=== PATIENT | male | born 1935 | race Caucasian/White ===

== ENCOUNTER 2016-09-27 14:50 | Inpatient (IN) ==
--- NOTE | 2016-09-27 15:11 | Emergency Department Note ---
Disposition Clinical Impression: Abdominal pain, KALIE (acute kidney injury), Pancreatitis, Duodenitis, Supratherapeutic INR Disposition: Admitted As Inpatient Condition: Fair Referrals: NO,PCP [Non-Partnered Physician] - Forms: Work/School Release, ED Satisfaction Letter Time of Disposition: 17:35 Abdominal Pain HPI - General Chief Complaint: ED Abdominal Pain Stated Complaint: abdominal pain Time Seen by Provider: 09/27/16 15:09 Source: patient Limitations: physical limitation Nursing Notes Reviewed: Yes Vital Signs Reviewed: Yes - History of Present Illness HPI Narrative: This is an 81-year-old male who presents with abdominal pain and distention for the last 4 days. Patient states nausea but no vomiting. Patient states he always has blood in his stools. Patient is on Coumadin for a hx of DVT. Patient states he always has some blood in his stools because he is constipated and has to strain. Patient states he cannot lay down flat because his airway will cut off. Patient denies any chest pain or increased shortness of breath. Patient's not running any fevers. Patient denies any abdominal surgeries. Patient does take insulin shots to his abdomen. Pt Subjective Complaint: abdominal pain Onset (ago): day(s) (4) - Related Data Home Medications Medication Instructions Recorded Confirmed Amlodipine Besylate 10 mg PO DAILY 09/27/16 09/27/16 Aspirin 81 mg PO DAILY 09/27/16 09/27/16 Atorvastatin Calcium 80 mg PO DAILY 09/27/16 09/27/16 Calcium Carbonate 650 mg PO BID 09/27/16 09/27/16 Cholecalciferol (D-3) [Vitamin D] 2,000 unit PO DAILY 09/27/16 09/27/16 Cyclobenzaprine HCl 10 mg PO TID PRN 09/27/16 09/27/16 Ferrous Sulfate [Iron] 325 mg PO BID 09/27/16 09/27/16 Furosemide [Lasix] 60 mg PO BID 09/27/16 09/27/16 Hyaluronate Sodium/He-Cell/Peg 1 appl NS DAILY 09/27/16 09/27/16 [Hygel 2.5% Gel] Insulin Glargine,Hum.rec.anlog 80 unit SQ HS 09/27/16 09/27/16 [Lantus Solostar] Isosorbide MONOnitrate (24 HR) 60 mg PO DAILY 09/27/16 09/27/16 [Imdur] Lisinopril [Zestril] 10 mg PO DAILY 09/27/16 09/27/16 Magnesium Citrate 296 ml PO PRN 09/27/16 09/27/16 Memantine [Namenda] 5 mg PO HS 09/27/16 09/27/16 Methadone 60 mg PO Q8HR 09/27/16 09/27/16 Metoprolol Succinate 100 mg PO DAILY 09/27/16 09/27/16 Mupirocin [Bactroban Oint] 1 appl TP Q8H 09/27/16 09/27/16 Nitroglycerin [Nitrostat] 0.4 mg SL AD PRN 09/27/16 09/27/16 Nystatin POWDER [Nystop] 1 appl TP BID 09/27/16 09/27/16 PredniSONE 3 mg PO DAILY 09/27/16 09/27/16 Sennosides/Docusate Sodium 17.2 mg PO HS 09/27/16 09/27/16 [Senna-Docusate Sodium Tablet] Sertraline [Zoloft] 100 mg PO DAILY 09/27/16 09/27/16 Sod Chloride/B-6/Zinc Acet/Ca 1 spray IR DAILY 09/27/16 09/27/16 [Wound Cleanser] Trimethoprim 100 mg PO BID 09/27/16 09/27/16 Warfarin [Coumadin] 2.5 mg PO 3XW 09/27/16 09/27/16 Warfarin [Coumadin] 5 mg PO 4XW MDD ramone,pushpa,sade,sat 09/27/16 09/27/16 Allergies Allergy/AdvReac Type Severity Reaction Status Date / Time colchicine Allergy Difficulty Verified 09/27/16 16:48 Breathing gabapentin Allergy Difficulty Verified 09/27/16 16:48 Breathing griseofulvin Allergy Difficulty Verified 09/27/16 16:48 Breathing methocarbamol Allergy Difficulty Verified 09/27/16 16:48 Breathing pregabalin [From Lyrica] Allergy Difficulty Verified 09/27/16 16:48 Breathing sulfamethoxazole Allergy Difficulty Verified 09/27/16 16:48 [From Bactrim] Breathing trimethoprim [From Bactrim] Allergy Difficulty Verified 09/27/16 16:48 Breathing acarbose AdvReac Difficulty Verified 09/27/16 16:48 Breathing IV CONTRAST Allergy Difficulty Uncoded 09/27/16 16:48 Breathing All systems ED: reviewed and negative except as stated. Constitutional: Denies: fever, chills, weakness, weight change Eyes: Denies: eye pain, eye discharge, vision change ENT ED: Denies: ear pain, throat pain, dental pain, hearing loss, epistaxis, congestion, dysphagia Cardiovascular: Denies: chest pain, palpitations, dyspnea on exertion, edema, syncope Respiratory: Denies: cough, dyspnea, wheezes, hemoptysis, stridor Gastrointestinal: Reports: abdominal pain, nausea, hematochezia. Denies: vomiting, diarrhea, constipation, hematemesis, melena Genitourinary: Denies: urgency, dysuria, frequency, hematuria Musculoskeletal: Denies: back pain, neck pain, arthralgia, myalgia Integumentary: Denies: rash, abrasion, lesions Neurological: Denies: headache, weakness, numbness, paresthesias, confusion, abnormal gait, vertigo Psychiatric: Denies: anxiety, depression, suicidal thoughts, homicidal thoughts , auditory hallucinations, visual hallucinations Endocrine: Denies: fatigue Hematological/Lymphatic: Denies: easy bleeding, easy bruising Allergic/Immunologic: Denies: facial swelling, urticaria Physical Exam - General Limitations: physical limitation General appearance: alert, in no apparent distress, obese (morbid) - Head Head exam: atraumatic, normocephalic, normal inspection - Eye Eye exam: Present: normal appearance, PERRL, EOMI - ENT ENT exam: normal exam, normal oropharynx, mucous membranes moist - Neck Neck exam: Present: normal inspection, full ROM, trachea midline - Chest Chest inspection: Present: normal inspection, symmetric chest wall rise - Respiratory Respiratory exam: Present: other (diminished ) - Cardiovascular Cardiovascular exam: Present: normal rhythm, tachycardia - Abdominal Exam Abdominal exam: Present: distention, guarding, rebound, other (ecchymosis to anterior abdomen). Absent: rigidity - Extremities Exam Extremities exam: Present: full ROM, pedal edema. Absent: tenderness - Expanded Lower Extremity Exam Lower leg exam: Present: swelling - Back Exam Back exam: Present: normal inspection, full ROM. Absent: tenderness - Neurological Exam Neurological exam: Present: alert, oriented X3 - Psychiatric Psychiatric exam: Present: normal affect, normal mood - Skin Skin exam: Present: warm, dry, intact, other (ecchymosis to anterior abdomen) Course - Consultations Consultation #1: I spoke with Dr. Brian chung to admit. Time: 18:19 Vital Signs Temperature 98.1 F 09/27/16 15:00 Pulse Rate 125 09/27/16 15:00 Respiratory Rate 20 09/27/16 15:00 Blood Pressure 117/76 09/27/16 15:00 O2 Sat by Pulse Oximetry 97 09/27/16 15:00 Temperature 98.1 F 09/27/16 15:00 Pulse Rate 116 09/27/16 16:55 Respiratory Rate 20 09/27/16 16:55 Blood Pressure 138/88 09/27/16 16:55 O2 Sat by Pulse Oximetry 97 09/27/16 16:55 Oxygen Delivery Oxygen Delivery Nasal Cannula Abdominal Pain - Medical Records Medical records reviewed: Yes I reviewed the patient's medical records. - Lab Data Lab results reviewed: Yes I reviewed the patient's lab results. Result diagrams: 09/27/16 15:23 09/27/16 15:23 Lab Results 09/27/16 09/27/16 09/27/16 Range/Units 15:23 15:23 15:23 WBC 21.1 H (4.3-11.1) K/mcL RBC 3.91 L (4.19-5.50) M/mcL Hgb 10.8 L (12.9-16.9) g/dL Hct 33.8 L (37.5-50.1) % MCV 86.4 (83.0-100.0) fL MCH 27.6 L (28.0-33.3) pg MCHC 32.0 (31.6-35.5) g/dL RDW 16.5 H (11.5-14.5) % Plt Count 323 (140-400) K/mcL MPV 8.9 L (9.4-12.4) fL Immature Gran % 1.2 (0-4) % Seg Neutrophils % 84.0 % Lymphocytes % 10.0 % Monocytes % 4.1 % Eosinophils % 0.4 % Basophils % 0.3 % Neutrophils # 17.7 H (1.6-8.9) K/mcL Lymphocytes # 2.1 (0.6-4.6) K/mcL Monocytes # 0.9 (0.0-1.3) K/mcL Eosinophils # 0.1 (0.0-0.6) K/mcL Basophils # 0.1 (0.0-0.2) K/mcL PT 118.2 H* (9.4-12.1) Seconds INR 10.2 H* APTT 69.8 H (26.0-36.0) Seconds Sodium 138 (136-145) mEq/L Potassium 4.5 (3.5-4.5) mEq/L Chloride 101 (98-109) mEq/L Carbon Dioxide 28 (19-29) mEq/L BUN 44 H (8-26) mg/dL Creatinine 1.92 H (0.72-1.25) mg/dL Est GFR ( Amer) 41 L (> 60) Est GFR (Non-Af Amer) 34 L (> 60) BUN/Creatinine Ratio 23 (6-26) Glucose 199 H (70-99) mg/dL Calculated Osmolality 303 H (280-300) Lactic Acid (0.5-2.2) mmol/L Calcium 9.9 (8.6-10.8) mg/dL Total Bilirubin 0.7 (0.2-1.2) mg/dL Direct Bilirubin 0.4 (0.0-0.5) mg/dL Indirect Bilirubin 0.3 (0.0-1.2) mg/dL AST 45 H (5-34) Units/L ALT 29 (0-55) Units/L Alkaline Phosphatase 103 (38-126) Units/L Troponin I (0-0.03) ng/mL B-Natriuretic Peptide (0-100) pg/mL Serum Total Protein 7.4 (6.0-8.3) g/dL Albumin 3.2 L (3.5-5.0) g/dL Globulin 4.2 H (2.4-3.5) g/dL Albumin/Globulin Ratio 0.8 L (1.1-2.2) Lipase 1172 H (8-78) Units/L 09/27/16 09/27/16 09/27/16 Range/Units 15:23 15:23 15:23 WBC (4.3-11.1) K/mcL RBC (4.19-5.50) M/mcL Hgb (12.9-16.9) g/dL Hct (37.5-50.1) % MCV (83.0-100.0) fL MCH (28.0-33.3) pg MCHC (31.6-35.5) g/dL RDW (11.5-14.5) % Plt Count (140-400) K/mcL MPV (9.4-12.4) fL Immature Gran % (0-4) % Seg Neutrophils % % Lymphocytes % % Monocytes % % Eosinophils % % Basophils % % Neutrophils # (1.6-8.9) K/mcL Lymphocytes # (0.6-4.6) K/mcL Monocytes # (0.0-1.3) K/mcL Eosinophils # (0.0-0.6) K/mcL Basophils # (0.0-0.2) K/mcL PT (9.4-12.1) Seconds INR APTT (26.0-36.0) Seconds Sodium (136-145) mEq/L Potassium (3.5-4.5) mEq/L Chloride (98-109) mEq/L Carbon Dioxide (19-29) mEq/L BUN (8-26) mg/dL Creatinine (0.72-1.25) mg/dL Est GFR ( Amer) (> 60) Est GFR (Non-Af Amer) (> 60) BUN/Creatinine Ratio (6-26) Glucose (70-99) mg/dL Calculated Osmolality (280-300) Lactic Acid 1.4 (0.5-2.2) mmol/L Calcium (8.6-10.8) mg/dL Total Bilirubin (0.2-1.2) mg/dL Direct Bilirubin (0.0-0.5) mg/dL Indirect Bilirubin (0.0-1.2) mg/dL AST (5-34) Units/L ALT (0-55) Units/L Alkaline Phosphatase (38-126) Units/L Troponin I 0.01 (0-0.03) ng/mL B-Natriuretic Peptide 42 (0-100) pg/mL Serum Total Protein (6.0-8.3) g/dL Albumin (3.5-5.0) g/dL Globulin (2.4-3.5) g/dL Albumin/Globulin Ratio (1.1-2.2) Lipase (8-78) Units/L - Radiology Data Radiology results reviewed: Yes I reviewed the patient's radiology results. - EKG Data EKG attestation: Yes I reviewed and interpreted this EKG. EKG shows normal: sinus rhythm Rate: tachycardia (121) Rhythm: NSR [place]/QRS: normal, IVCD Interpretation: nonspecific ST-T wave changes
[2016-09-27 15:33] LABS: Basophils # 0.1 K/mcL (0.0-0.2); Basophils % 0.3 %; Eosinophils # 0.1 K/mcL (0.0-0.6); Eosinophils % 0.4 %; Hematocrit 33.8 % (37.5-50.1); Hemoglobin 10.8 g/dL (12.9-16.9); Immature Granulocytes % 1.2 % (0-4); Lymphocytes # 2.1 K/mcL (0.6-4.6); Mean Corpuscular Hemoglobin 27.6 pg (28.0-33.3); Mean Corpuscular Volume 86.4 fL (83.0-100.0); Mean Platelet Volume 8.9 fL (9.4-12.4); Monocytes # 0.9 K/mcL (0.0-1.3); Monocytes % 4.1 %; Neutrophils # 17.7 K/mcL (1.6-8.9); Platelet Count 323 K/mcL (140-400); Red Blood Count 3.91 M/mcL (4.19-5.50); Red Cell Distribution Width 16.5 % (11.5-14.5)
[2016-09-27 15:40] LABS: Activated Partial Thrombo Time 69.8 Seconds (26.0-36.0)
[2016-09-27 15:50] LABS: Albumin 3.2 g/dL (3.5-5.0); Albumin/Globulin Ratio 0.8 (1.1-2.2); Bilirubin,Direct 0.4 mg/dL (0.0-0.5); Bilirubin,Indirect 0.3 mg/dL (0.0-1.2); Bilirubin,Total 0.7 mg/dL (0.2-1.2); Calcium 9.9 mg/dL (8.6-10.8); Globulin 4.2 g/dL (2.4-3.5); Potassium 4.5 mEq/L (3.5-4.5); Total Protein 7.4 g/dL (6.0-8.3)
[2016-09-27 15:52] LABS: INR 10.2; Prothrombin Time 118.2 Seconds (9.4-12.1)
[2016-09-27] MEDS ORDERED: Ondansetron 4 MG/2 ML VIAL IV ONE (16:34)
[2016-09-27] MEDS ORDERED: *HR* Morphine 2 MG/ML SYRINGE IV ONE (16:34)
[2016-09-27] MEDS ORDERED: Pantoprazole 40 MG VIAL IVP ONE (17:39)
[2016-09-27] MEDS ORDERED: MetroNIDAZOLE 500 MG/100 ML 500 MG/100 ML BAG IVPB ONE (18:17)
[2016-09-27] MEDS ORDERED: *HR* Phytonadione 10 MG/ML AMPUL SQ ONE (18:18)
[2016-09-27] MEDS ORDERED: 0.9 % Sodium Chloride 1,000 ML IV SCH (18:30)
[2016-09-27] MEDS: Pantoprazole 40 MG in 0.9 % Sodium Chloride Mini Bag 100 ML IVC SCH ×2 (18:58→23:36)
[2016-09-27] MEDS ORDERED: Metoclopramide 10 MG/2 ML VIAL IVP ONE (19:54)
[2016-09-27] MEDS ORDERED: *HR* HYDROmorphone (PF) 1 MG/ML SYRINGE IVP PRN (19:54)
[2016-09-27] MEDS ORDERED: Benzonatate 100 MG CAPSULE PO PRN (19:54)
[2016-09-27] MEDS ORDERED: *HR* Promethazine 25 MG/ML VIAL IVP PRN (19:54)
[2016-09-27] MEDS ORDERED: Naloxone 0.4 MG/ML INJ IVP PRN (19:54)
[2016-09-27] MEDS ORDERED: Dextrose Gel 15 GM PO PRN ×2 (19:54)
[2016-09-27] MEDS ORDERED: MOM Conc 10 ML UD.LIQ PO PRN (19:54)
[2016-09-27] MEDS ORDERED: Acetaminophen 325 MG TABLET PO PRN (19:54)
[2016-09-27] MEDS ORDERED: *HR* OxyCODONE Immed Rel 5 MG TABLET PO PRN (19:54)
[2016-09-27] MEDS ORDERED: *HR* Dextrose 50 % in Water (Syg) 50 ML SYRINGE IVP PRN (19:54)
[2016-09-27] MEDS ORDERED: D5% in Water 1,000 ML IV PRN (19:54)
[2016-09-27] MEDS ORDERED: Mag Hydrox/Al Hydrox/Simeth 30 ML UDC PO PRN (19:54)
[2016-09-27] MEDS ORDERED: Ipratropium/Albuterol Neb 3 ML IH PRN (19:54)
[2016-09-27] MEDS ORDERED: Nitroglycerin 0.4 MG TAB.SUBL SL PRN (20:08)
[2016-09-27] MEDS ORDERED: 0.9 % Sodium Chloride 1,000 ML IVC ONE (20:08)
--- NOTE | 2016-09-27 20:22 | Internal Med History&Physical ---
Date of Encounter: 09/27/16 Time of Encounter: 20:00 Assessment and Plan (1) Acute abdominal pain Current visit: Yes Status: Acute . (2) Acute duodenitis Current visit: Yes Status: Acute . (3) Acute pancreatitis Current visit: Yes Status: Acute . Qualifiers: Pancreatitis type: unspecified pancreatitis type Acute pancreatitis complication: no infection or necrosis Qualified Code(s): K85.90 - Acute pancreatitis without necrosis or infection, unspecified (4) Cholelithiasis Current visit: Yes Status: Chronic . Qualifiers: Cholelithiasis location: gallbladder Cholecystitis presence: without cholecystitis Biliary obstruction: without biliary obstruction Qualified Code(s): K80.20 - Calculus of gallbladder without cholecystitis without obstruction (5) Polycystic kidney disease Current visit: Yes Status: Chronic . (6) Type 2 diabetes mellitus Current visit: Yes Status: Chronic . 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 Qualifiers: Hypertension type: unspecified secondary hypertension Qualified Code(s): I15.9 - Secondary hypertension, unspecified; I15 - Secondary hypertension (8) Dyslipidemia Current visit: Yes Status: Chronic . (9) Coumadin toxicity Current visit: Yes Status: Acute . Qualifiers: Encounter type: initial encounter Injury intent: accidental or unintentional Qualified Code(s): T45.511A - Poisoning by anticoagulants, accidental (unintentional), initial encounter (10) Chronic anticoagulation Current visit: Yes Status: Chronic . (11) History of DVT (deep vein thrombosis) Current visit: Yes Status: Chronic . (12) Chronic pain syndrome Current visit: Yes Status: Chronic . (13) Chronic narcotic dependence Current visit: Yes Status: Chronic . (14) Osteoarthritis involving multiple joints on both sides of body Current visit: Yes Status: Chronic . (15) Osteopenia Current visit: Yes Status: Chronic . (16) CAD (coronary artery disease), [place] coronary artery Current visit: Yes Status: Chronic . Qualifiers: [place] vs. transplanted heart: [place] heart Associated angina: without angina Qualified Code(s): I25.10 - Atherosclerotic heart disease of [place] coronary artery without angina pectoris (17) Acute kidney injury superimposed on CKD Current visit: Yes Status: Acute . (18) Chronic constipation Current visit: Yes Status: Chronic . (19) Internal hemorrhoids Current visit: Yes Status: Chronic . (20) Hematochezia due to medication Current visit: Yes Status: Chronic . (21) Dementia arising in the senium and presenium Current visit: Yes Status: Chronic . (22) Morbid obesity with BMI of 40.0-44.9, adult Current visit: Yes Status: Chronic . (23) Debility, unspecified Current visit: Yes Status: Chronic . (24) Supratherapeutic INR Current visit: Yes Status: Acute . (25) Systemic inflammatory response syndrome (SIRS) Current visit: Yes Status: Acute . (26) Toxic metabolic encephalopathy Current visit: Yes Status: Acute . (27) Delirium due to conditions classified elsewhere Current visit: Yes Status: Acute . Internal Medicine - H&P: HPI Chief complaint: Abdominal pain Admitted From: Emergency Dept Plans for Post Hospital Care: Home History of present illness: Mr. Hoffmann is a 81 year old male with medical history significant for hypertension, dyslipidemia, osteoarthritis, osteopenia, vitamin D deficiency, chronic musculoskeletal/low back pain, DDD of lumbar spine s/p fusion, narcotic dependency (methadone), iron deficiency, type 2 diabetes mellitus, CAD, CKD, chronic constipation, dementia unspecified, internal hemorrhoids/chronic hematochezia, diverticulosis coli, morbid obesity, H/O DVT x2, chronic anticoagulation (Coumadin), gout/hyperuricemia, peripheral neuropathy, former smoker. The patient was visited and interviewed and examined. Patient is mildly encephalopathic and is a inconsistent historian of circumstances and events. His daughter who serves as his caregiver and power of county attorney validates history at the bedside during examination. The patient is admitted to [facility] via the emergency department when he presented to the [employer] with complaints of abdominal pain. The patient reports a 4 to five-day progression of diffuse abdominal pain and distention associated with nausea but no emesis. Patient is chronically on warfarin therapy for remote history of recurrent left lower extremity DVT. As a consequence of his warfarin therapy as well as known internal inguinal disease he always sees blood in his stool. He denies with current new development of symptoms of the upper abdomen any change in that. Denies any hematemesis or epistaxis hemoptysis. She is on oral iron replacement for iron deficiency anemia. His blood in his stool is aggravated by his chronic constipation and then need to strain at stool. Constipation has made his irregularity at times of concern with bowel movements occurring only every 2 or 3 days but large volume. This is truly secreted by his long-standing dependency on narcotic analgesia for musculoskeletal pain. Current symptoms has not been associated with any fevers or chills. He denies dysuria hematuria frequency. Denies chest pain palpitations dyspnea peripheral edema. Denies any upper or lower respiratory complaints. Denies any dietary indiscretions or sick contacts. Findings in the ED: Temperature 98.1 pulse 100-125 respiration 20 BP 117-138/76 -88 O2 saturation 97% 2 L per nasal cannula. WBC 21.1 hemoglobin 10.8 platelets 323,000. RDW 16.5. MPV 8.9. Differential shows no increase in neutrophils. PT 118.2. INR 10.2. PTT 69.8. Metabolic panel to notes BUN of 44 creatinine 1.92 GFR 34. Glucose 199 osmolality 303. Hepatic function notes AST of 45. Albumin 3.2 total protein 7.4. Lipase 1172. Lactic acid 1.4. Troponin 0.[address] abdomen and pelvis without contrast demonstrates severe circumferential thickening of the duodenum. Notable at the level of the transverse duodenum with surrounding inflammation suggestive of duodenitis. No evidence of free intraperitoneal air. Further evaluation recommended as underlying mass cannot be excluded. Cholelithiasis with no CT evidence of cholecystitis. Multiple renal cortical cysts bilaterally measuring up to 12 cm in size. Mild bibasilar dependent atelectasis. Calcified plaques in the left anterior descending coronary artery and left circumflex. Coarsely calcified subcarinal lymph nodes. Fatty atrophy of the pancreas. Pancreas is enlarged measuring 5.7 cm in the transverse dimension. No free fluid in the pelvis. Abdominal aorta is atherosclerotic. No evidence of aneurysm. No evidence for retroperitoneal adenopathy. Anterior abdominal wall is lax. Bones are osteopenic. Straightening of the lumbar lordosis. Severe degenerative disc disease L2-L3 and L3-L4. Posterior interspinous fusion L4-L5. No aggressive lytic lesion. Portable chest x-ray low lung volumes with bibasilar atelectasis. Small pleural effusions. Heart enlarged. No pneumothorax. Advanced degenerative changes of the right shoulder. No acute osseous abnormality. No focal infiltrate. EKG noted sinus tachycardia (121) with occasional ectopic premature complexes. Intraventricular conduction delay. Evolving right axis deviation. Incomplete right bundle branch block. Nonspecific ST-T wave changes. Preliminary impression suggest acute abdominal pain syndrome with associated symptoms of acute gastroenteritis with nausea vomiting and diarrhea secondary to combined acute duodenitis and acute pancreatitis. Systemic inflammatory response syndrome criteria and are present. Presentation is complicated by Coumadin toxicity with a supra therapeutic INR elevation greater than 10. Patient presents with acute on chronic rectal bleeding/hematochezia reported internal hemorrhoidal disease. He is aggravated as well by his supratherapeutic INR. Coumadin likely greatly impeded by patient's acute gastroenteritis and chronic constipated ongoing complaints and for supplemental oral intake over the last week. Acute on chronic renal failure also noted. This to aggravated by relative dehydration and hypoperfusion experienced over the last week. Evidence to suggest sepsis is not present at the time of admission. The patient presents increased risk for further acute clinical decline and morbidity given his presenting concerns clinical findings, advanced age and comorbidities. Workup and treatment will progress comprehensively. Cumulative laboratory and radiographic data base was reviewed, considered and discussed. Pertinent ancillary medical records including ECW and PCI documentation, when available, was reviewed and considered. Given the patient's presenting concerns, past medical history, clinical findings and symptoms, he is admitted at this time will undergo further evaluation and disposition. Orders were written as per the computerized physician customer order clerk system.......................................................................... .................... Consultative opinion and will be sought as clinical circumstances justify. Initial consultative request has been submitted to gastroenterology. Pain management needs will be addressed. Laboratory and radiographic data base will be updated as appropriate. Studies include:cardiac injury panel, BNP, metabolic and hematologic panel, magnesium, phosphorus, ionized calcium, thyroid panel, lipid profile, A1c, C-peptide, CRP sedimentation rate, urinalysis, amylase, lipase, blood gas, lactic acid, C. difficile toxin, type and screen serologies, etc. Precautions: Aspiration, fall, delirium protocol/surveillance initiated. Telemetry with continuous hemodynamic monitoring and pulse oximetry initiated. Empiric antibody coverage: Intravenous ciprofloxacin and metronidazole pending culture data. Coumadin toxicity reversal protocol: Intravenous vitamin K plus infusion of fresh frozen plasma. Prophylactic subcutaneous heparin therapy initiated pending resolution of the GI bleed and acute intra-abdominal symptoms. Consideration for reintroduction of Coumadin versus normal agent at the time of discharge due to repetitive history of left lower extremity DVT. Special studies: CT abdomen/pelvis, MRCP, chest x-ray, telemetry, EKG. Pulmonary toilet: Incentive spirometry, aerosol bronchodilator, mucolytic, antitussive, supplemental oxygen. Corticosteroid therapy. CPAP/BiPAP supplemental oxygen delivery. Aerosol Mucomyst therapy. Fluid and electrolyte repletion efforts will proceed. Careful attention to fluid balance and renal recovery will be emphasized. Avoidance of nephrotoxic exposure and adverse drug drug interaction in the setting of impaired renal function will be monitored closely. Acute coronary syndrome protocol/surveillance initiated. Acute gastritis/duodenitis protocols initiated: Intravenous Protonix loading dose plus Protonix drip. Oral Carafate suspension before meals and at bedtime. Bowel rest. Modified diet to clear liquids pending completion of upper and/ or lower abdomen will investigations and resolution of symptoms. DVT and PUD prophylaxis initiated: PPI therapy, intermittent pneumatic cuffs. Subcutaneous heparin. Early ambulation will be encouraged. Immunization updates recommended. Influenza and pneumococcal vaccinations as part of ongoing preventative healthcare recommendations strongly recommended. Smoking cessation counseling briefly addressed. Patient is a former heavy smoker. The substitution may be provided on an as request patient. Advanced care directive discussion briefly addressed. Patient does not declare any healthcare restrictions at this time. Cardiovascular risk appraisal and cardiovascular risk reduction efforts will be emphasized. Physical and occupational therapy may consulted to assess patient's functional capacity and progress mobility as his circumstances permit. Sliding scale/basal insulin coverage, ADA dietary restraint and schedule an as- needed basis fingerstick glucose assessments were initiated. Nutrition/diabetes education counseling may be considered as circumstances justify. Outpatient medication schedules will be reviewed confirmed and facilitated as appropriate. Reconciliation of home treatments including adjustments, substitutions and reintroduction into the treatment regimen will address necessary maintenance therapies for chronic pre-existing medical conditions. Plan of care has been reviewed and discussed in detail with the patient and family in attendance. Questions were addressed to their mutual understanding and reassurance. Hospital course is dependent on clinical findings, treatment response and potential consultative interventions. Patient is at risk for further acute clinical decline and mortality due to his advanced age, frailty , presenting chief complaints and comorbid conditions. Condition is serious. Prognosis is cautiously optimistic. CODE STATUS is full. Past Med Surg Social Fam HX - Past Medical History Source: old records reviewed Medical history: arthritis, asthma, coronary artery disease, DVT, dementia, diabetes, fibromyalgia, GERD, GI bleed, hyperlipidemia, hypertension, osteoporosis, renal disease, venous stasis, other Psychiatric history: anxiety, depression, other - Past Surgical History Surgical History: appendectomy, arthroscopy, herniorrhaphy, orthopedic, other, other - Social History Smoking Status: Former smoker Smokeless Tobacco Status: No Alcohol use: none Drug use: none Occupational status: retired Current living situation: With Family Activity Level: Independent ambulation, Mostly sedentary Recent Out of Country Travel Within the Last 8 Weeks: No Exposure or Possible Exposure to Illness During Travel: No Internal Medicine - H&P: Meds Amlodipine Besylate 10 mg PO DAILY 09/27/16 [History] Aspirin 81 mg PO DAILY 09/27/16 [History] Atorvastatin Calcium 80 mg PO DAILY 09/27/16 [History] Calcium Carbonate 650 mg PO BID 09/27/16 [History] Cholecalciferol (D-3) [Vitamin D] 2,000 unit PO DAILY 09/27/16 [History] Cyclobenzaprine HCl 10 mg PO TID PRN 09/27/16 [History] Ferrous Sulfate [Iron] 325 mg PO BID 09/27/16 [History] Furosemide [Lasix] 60 mg PO BID 09/27/16 [History] Hyaluronate Sodium/He-Cell/Peg [Hygel 2.5% Gel] 1 appl NS DAILY 09/27/16 [ History] Insulin Glargine,Hum.rec.anlog [Lantus Solostar] 80 unit SQ HS 09/27/16 [History ] Isosorbide MONOnitrate (24 HR) [Imdur] 60 mg PO DAILY 09/27/16 [History] Lisinopril [Zestril] 10 mg PO DAILY 09/27/16 [History] Magnesium Citrate 296 ml PO PRN 09/27/16 [History] Memantine [Namenda] 5 mg PO HS 09/27/16 [History] Methadone 60 mg PO Q8HR 09/27/16 [History] Metoprolol Succinate 100 mg PO DAILY 09/27/16 [History] Mupirocin [Bactroban Oint] 1 appl TP Q8H 09/27/16 [History] Nitroglycerin [Nitrostat] 0.4 mg SL AD PRN 09/27/16 [History] Nystatin POWDER [Nystop] 1 appl TP BID 09/27/16 [History] PredniSONE 3 mg PO DAILY 09/27/16 [History] Sennosides/Docusate Sodium [Senna-Docusate Sodium Tablet] 17.2 mg PO HS [History] Sertraline [Zoloft] 100 mg PO DAILY 09/27/16 [History] Sod Chloride/B-6/Zinc Acet/Ca [Wound Cleanser] 1 spray IR DAILY 09/27/16 [ History] Trimethoprim 100 mg PO BID 09/27/16 [History] Warfarin [Coumadin] 2.5 mg PO 3XW 09/27/16 [History] Warfarin [Coumadin] 5 mg PO 4XW MDD sun,tues,thurs,sat 09/27/16 [History] Allergies colchicine Allergy (Verified 09/27/16 16:48) Difficulty Breathing gabapentin Allergy (Verified 09/27/16 16:48) Difficulty Breathing griseofulvin Allergy (Verified 09/27/16 16:48) Difficulty Breathing methocarbamol Allergy (Verified 09/27/16 16:48) Difficulty Breathing pregabalin [From Lyrica] Allergy (Verified 09/27/16 16:48) Difficulty Breathing sulfamethoxazole [From Bactrim] Allergy (Verified 09/27/16 16:48) Difficulty Breathing trimethoprim [From Bactrim] Allergy (Verified 09/27/16 16:48) Difficulty Breathing acarbose Adverse Reaction (Verified 09/27/16 16:48) Difficulty Breathing IV CONTRAST Allergy (Uncoded 09/27/16 16:48) Difficulty Breathing ROS unobtainable: due to mental status All Systems PM: A 10-system review of systems was performed and is negative for pertinent findings except as documented above in the HPI. Patient is mildly encephalopathic at the time of intake and examination. He last was found to be an inconsistent historian of circumstances and events. Details are thus validated and collected from his daughter at the bedside who serves as primary caregiver and power of county attorney. Information is gleaned from collective records and triage of attending staff. - Constitutional Constitutional: as per HPI, malaise, no chills, no fever(s), no night sweats - EENT Eyes: as per HPI, no change in vision, no discharge, no pain, no photophobia Ears: as per HPI, no ear discharge, no ear pain, no tinnitus Nose, mouth and throat: as per HPI, no dysphagia, no nasal discharge, no neck pain, no sore throat - Cardiovascular Cardiovascular ROS IM: as per HPI, no chest pain, no diaphoresis, no dyspnea, no lightheadedness, no palpitations, no syncope - Respiratory Respiratory: as per HPI, no cough, no dyspnea, no wheezing, no excessive phlegm production - Gastrointestinal Gastrointestinal: as per HPI, abdominal pain, bloating, change in bowel habits, constipation, cramping, hematochezia, nausea, other, no coffee ground emesis, no diarrhea, no excessive flatus, no fecal incontinence, no hematemesis, no melena, no vomiting - Genitourinary Genitourinary ROS male: as per HPI, no difficulty urinating, no dysuria, no hematuria - Musculoskeletal Musculoskeletal ROS IM: as per HPI, arthralgias, back pain, myalgias, other, no numbness, no tingling - Integumentary Integumentary IM: as per HPI, no rash, no unusual bruising - Neurological Neurological ROS: as per HPI, no confusion, no convulsions, no focal weakness, no numbness, no tingling, no tremor(s) - Psychiatric Psychiatric: as per HPI - Endocrine Endocrine IM: as per HPI - Hematologic/Lymphatic Hematologic/Lymphatic: as per HPI, no easy bruising - Allergic/Immunologic Allergic/Immunologic: as per HPI - Constitutional Vitals: Temp Pulse Resp BP Pulse Ox 98.1 F 112 20 116/74 98 09/27/16 15:00 09/27/16 19:12 09/27/16 19:46 09/27/16 19:46 09/27/16 19:12 General appearance: Present: disheveled, A&O X 2, morbidly obese, severe distress, answers questions appropriately - Head Head exam: Present: atraumatic, normocephalic - Eye Eye exam: Present: EOMI, PERRL, conjuntiva pink, sclera anicteric Pupils: Present: normal accommodation, PERRL - ENT ENT exam: Present: mucous membranes moist, normal external ear exam, normal oropharynx - Neck Neck exam general surgery: Present: full ROM, supple, trachea midline. Absent: lymphadenopathy, tenderness, nuchal rigidity - Respiratory Respiratory exam: Present: chest wall tenderness, decreased breath sounds, CTAB. Absent: accessory muscle use, rales, rhonchi, wheezes - Cardiovascular Cardiovascular exam: Present: distant heart sounds, RRR, +S1, +S2, tachycardia. Absent: diastolic murmur, gallop, rubs, systolic murmur - GI/Abdominal GI/Abdominal exam: Present: distended, guarding, normal bowel sounds, soft, tenderness, no peritoneal signs. Absent: rebound - Extremities Exam Extremities exam: Present: full ROM, warm, radial pulses palpable and symetrical. Absent: calf tenderness, cyanotic, pedal edema - Neurological Exam Neurological exam: Present: alert, altered, CN II-XII intact, oriented X3, no focal deficits. Absent: pronater drift, facial droop, speech deficit - Expanded Neurological Exam Coma Scale Eye Opening: Spontaneous Coma Scale Motor Response: Obeys Commands Coma Scale Verbal Response: Inappropriate Coma Scale Total: 13 - Psychiatric Psychiatric exam: Present: agitated, anxious - Expanded Psychiatric Exam Focused psych exam: Present: restlessness - Skin Skin exam: Present: dry, intact, warm. Absent: petechiae, rash, urticaria, vesicles Internal Med - H&P Results - Labs CBC & Chem 7: 09/28/16 02:36 09/28/16 02:36 - Impressions Vital Signs Temp Pulse Resp BP Pulse Ox 09/27/16 20:22 97.4 F L 100 16 141/78 96 09/27/16 19:46 20 116/74 09/27/16 19:12 112 16 119/87 98 09/27/16 18:20 130 17 96 09/27/16 16:55 116 20 138/88 97 09/27/16 16:01 120 18 121/79 97 09/27/16 15:17 125 20 135/86 96 09/27/16 15:00 98.1 F 125 20 117/76 97 Intake and Output 09/27/16 09/27/16 09/27/16 07:59 15:59 23:59 Other: Stool Characteristics Normal for Patient Stool Color Brown Bright Red Blood Weight 117.934 kg Patient Weight 09/27/16 23:59 Weight 117.934 kg Short CBC 09/27/16 Range/Units 15:23 WBC 21.1 H (4.3-11.1) K/mcL Hgb 10.8 L (12.9-16.9) g/dL Hct 33.8 L (37.5-50.1) % Plt Count 323 (140-400) K/mcL Neutrophils # 17.7 H (1.6-8.9) K/mcL BMP 09/27/16 Range/Units 15:23 Sodium 138 (136-145) mEq/L Potassium 4.5 (3.5-4.5) mEq/L Chloride 101 (98-109) mEq/L Carbon Dioxide 28 (19-29) mEq/L BUN 44 H (8-26) mg/dL Creatinine 1.92 H (0.72-1.25) mg/dL Glucose 199 H (70-99) mg/dL Calcium 9.9 (8.6-10.8) mg/dL Cardiac Enzymes 09/27/16 Range/Units 15:23 Troponin I 0.01 (0-0.03) ng/mL Liver Function 09/27/16 Range/Units 15:23 Total Bilirubin 0.7 (0.2-1.2) mg/dL Direct Bilirubin 0.4 (0.0-0.5) mg/dL AST 45 H (5-34) Units/L ALT 29 (0-55) Units/L Alkaline Phosphatase 103 (38-126) Units/L Albumin 3.2 L (3.5-5.0) g/dL Abnormal lab results WBC 21.1 K/mcL (4.3-11.1) H 09/27/16 15:23 RBC 3.91 M/mcL (4.19-5.50) L 09/27/16 15:23 Hgb 10.8 g/dL (12.9-16.9) L 09/27/16 15:23 Hct 33.8 % (37.5-50.1) L 09/27/16 15:23 MCH 27.6 pg (28.0-33.3) L 09/27/16 15:23 RDW 16.5 % (11.5-14.5) H 09/27/16 15:23 MPV 8.9 fL (9.4-12.4) L 09/27/16 15:23 Neutrophils # 17.7 K/mcL (1.6-8.9) H 09/27/16 15:23 PT 118.2 Seconds (9.4-12.1) H* 09/27/16 15:23 INR 10.2 H* 09/27/16 15:23 APTT 69.8 Seconds (26.0-36.0) H 09/27/16 15:23 BUN 44 mg/dL (8-26) H 09/27/16 15:23 Creatinine 1.92 mg/dL (0.72-1.25) H 09/27/16 15:23 Est GFR ( Amer) 41 (> 60) L 09/27/16 15:23 Est GFR (Non-Af Amer) 34 (> 60) L 09/27/16 15:23 Glucose 199 mg/dL (70-99) H 09/27/16 15:23 Calculated Osmolality 303 (280-300) H 09/27/16 15:23 AST 45 Units/L (5-34) H 09/27/16 15:23 Albumin 3.2 g/dL (3.5-5.0) L 09/27/16 15:23 Globulin 4.2 g/dL (2.4-3.5) H 09/27/16 15:23 Albumin/Globulin Ratio 0.8 (1.1-2.2) L 09/27/16 15:23 Lipase 1172 Units/L (8-78) H 09/27/16 15:23 Allergies Allergy/AdvReac Type Severity Reaction Status Date / Time colchicine Allergy Difficulty Verified 09/27/16 16:48 Breathing gabapentin Allergy Difficulty Verified 09/27/16 16:48 Breathing griseofulvin Allergy Difficulty Verified 09/27/16 16:48 Breathing methocarbamol Allergy Difficulty Verified 09/27/16 16:48 Breathing pregabalin [From Lyrica] Allergy Difficulty Verified 09/27/16 16:48 Breathing sulfamethoxazole Allergy Difficulty Verified 09/27/16 16:48 [From Bactrim] Breathing trimethoprim [From Bactrim] Allergy Difficulty Verified 09/27/16 16:48 Breathing acarbose AdvReac Difficulty Verified 09/27/16 16:48 Breathing IV CONTRAST Allergy Difficulty Uncoded 09/27/16 16:48 Breathing Laboratory Results WBC 21.1 K/mcL (4.3-11.1) H 09/27/16 15:23 RBC 3.91 M/mcL (4.19-5.50) L 09/27/16 15:23 Hgb 10.8 g/dL (12.9-16.9) L 09/27/16 15:23 Hct 33.8 % (37.5-50.1) L 09/27/16 15:23 MCV 86.4 fL (83.0-100.0) 09/27/16 15:23 MCH 27.6 pg (28.0-33.3) L 09/27/16 15: MCHC 32.0 g/dL (31.6-35.5) 09/27/16 15:23 RDW 16.5 % (11.5-14.5) H 09/27/16 15:23 Plt Count 323 K/mcL (140-400) 09/27/16 15:23 MPV 8.9 fL (9.4-12.4) L 09/27/16 15:23 Immature Gran % 1.2 % (0-4) 09/27/16 15:23 Seg Neutrophils % 84.0 % 09/27/16 15:23 Lymphocytes % 10.0 % 09/27/16 15:23 Monocytes % 4.1 % 09/27/16 15:23 Eosinophils % 0.4 % 09/27/16 15:23 Basophils % 0.3 % 09/27/16 15:23 Neutrophils # 17.7 K/mcL (1.6-8.9) H 09/27/16 15:23 Lymphocytes # 2.1 K/mcL (0.6-4.6) 09/27/16 15:23 Monocytes # 0.9 K/mcL (0.0-1.3) 09/27/16 15:23 Eosinophils # 0.1 K/mcL (0.0-0.6) 09/27/16 15:23 Basophils # 0.1 K/mcL (0.0-0.2) 09/27/16 15:23 PT 118.2 Seconds (9.4-12.1) H* 09/27/16 15:23 INR 10.2 H* 09/27/16 15:23 APTT 69.8 Seconds (26.0-36.0) H 09/27/16 15:23 Sodium 138 mEq/L (136-145) 09/27/16 15:23 Potassium 4.5 mEq/L (3.5-4.5) 09/27/16 15:23 Chloride 101 mEq/L (98-109) 09/27/16 15:23 Carbon Dioxide 28 mEq/L (19-29) 09/27/16 15:23 BUN 44 mg/dL (8-26) H 09/27/16 15:23 Creatinine 1.92 mg/dL (0.72-1.25) H 09/27/16 15:23 Est GFR ( Amer) 41 (> 60) L 09/27/16 15:23 Est GFR (Non-Af Amer) 34 (> 60) L 09/27/16 15:23 BUN/Creatinine Ratio 23 (6-26) 09/27/16 15:23 Glucose 199 mg/dL (70-99) H 09/27/16 15:23 Calculated Osmolality 303 (280-300) H 09/27/16 15:23 Lactic Acid 1.4 mmol/L (0.5-2.2) 09/27/16 15:23 Calcium 9.9 mg/dL (8.6-10.8) 09/27/16 15:23 Total Bilirubin 0.7 mg/dL (0.2-1.2) 09/27/16 15:23 Direct Bilirubin 0.4 mg/dL (0.0-0.5) 09/27/16 15:23 Indirect Bilirubin 0.3 mg/dL (0.0-1.2) 09/27/16 15:23 AST 45 Units/L (5-34) H 09/27/16 15:23 ALT 29 Units/L (0-55) 09/27/16 15:23 Alkaline Phosphatase 103 Units/L (38-126) 09/27/16 15:23 Troponin I 0.01 ng/mL (0-0.03) 09/27/16 15:23 B-Natriuretic Peptide 42 pg/mL (0-100) 09/27/16 15:23 Serum Total Protein 7.4 g/dL (6.0-8.3) 09/27/16 15:23 Albumin 3.2 g/dL (3.5-5.0) L 09/27/16 15:23 Globulin 4.2 g/dL (2.4-3.5) H 09/27/16 15:23 Albumin/Globulin Ratio 0.8 (1.1-2.2) L 09/27/16 15:23 Lipase 1172 Units/L (8-78) H 09/27/16 15:23 Blood Type A POSITIVE 09/27/16 17:58 Antibody Screen NEGATIVE 09/27/16 17:58 Impressions Chest X-Ray 09/27/16 15:08 IMPRESSION: 1. Low lung volumes with bibasilar atelectasis. 2. Question of small pleural effusions. D/ / Pacheco Mar MD / Pacheco Mar MD Interpreting Provider: Pacheco Mar MD Abdomen/Pelvis CT 09/27/16 16:23 IMPRESSION: 1. Severe circumferential thickening of the duodenum, most notable at the level of the transverse duodenum, with surrounding inflammation suggestive of a duodenitis. There is no evidence of free intraperitoneal air. Consider endoscopy at resolution of patient's acute issues as an underlying mass cannot be excluded. 2. Cholelithiasis. No CT evidence of cholecystitis. 3. Multiple renal cortical cysts bilaterally, measuring up to 12 cm in size. D/ / 09/27/2016 17:30:59 Jonas Mares MD / rigoberto Interpreting Provider: Jonas Mares MD
[2016-09-27 20:53] LABS: Hematocrit 33.5 % (37.5-50.1); Hemoglobin 10.7 g/dL (12.9-16.9)
[2016-09-27] MEDS ORDERED: Insulin LISPRO 300 UNITS/3 ML VIAL SQ SCH (21:00)
[2016-09-27] MEDS ORDERED: Sennosides/Docusate Sodium TABLET PO SCH (21:00)
[2016-09-27 21:05] LABS: Magnesium 1.9 mg/dL (1.6-2.6); Phosphorous 3.8 mg/dL (2.3-4.7)
[2016-09-27 21:33] LABS: Ionized Calcium 1.09 mmol/L (1.15-1.35)
[2016-09-27] MEDS: *HR* Heparin 5,000 UNIT/ML VIAL SQ SCH (21:57)
[2016-09-27] MEDS: *HR* Methadone 10 MG TABLET PO SCH (23:32)
[2016-09-28] MEDS ORDERED: 0.9 % Sodium Chloride 250 ML ONE ×2 (00:04→15:41)
[2016-09-28] MEDS: 0.9 % Sodium Chloride 1,000 ML IVC SCH ×2 (00:39→13:59)
[2016-09-28] MEDS ORDERED: Orphenadrine 60 MG/2 ML VIAL IVP ONE (01:29)
[2016-09-28] MEDS ORDERED: *HR* HYDROmorphone (PF) 1 MG/ML SYRINGE IVP STA (01:29)
[2016-09-28] MEDS ORDERED: *HR* HYDROmorphone (PF) 1 MG/ML SYRINGE IVP PRN (01:30)
[2016-09-28] MEDS ORDERED: Calcium Gluconate 1,000 MG in D5% in Water 100 ML IVPB ONE (01:31)
[2016-09-28] MEDS ORDERED: *HR* LORazepam 0.5 MG TABLET PO PRN (01:35)
[2016-09-28 02:46] LABS: Hematocrit 31.5 % (37.5-50.1); Mean Corpuscular HGB Conc 31.7 g/dL (31.6-35.5); Mean Corpuscular Hemoglobin 27.9 pg (28.0-33.3); Mean Corpuscular Volume 87.7 fL (83.0-100.0); Mean Platelet Volume 9.3 fL (9.4-12.4); Platelet Count 308 K/mcL (140-400); Red Blood Count 3.59 M/mcL (4.19-5.50); Red Cell Distribution Width 16.5 % (11.5-14.5)
[2016-09-28 02:53] LABS: Activated Partial Thrombo Time 42.9 Seconds (26.0-36.0)
[2016-09-28 03:00] LABS: Hemoglobin A1C 6.4 %
[2016-09-28 03:01] LABS: Amylase 550 Units/L (25-125); BUN/Creatinine Ratio 21 (6-26); Blood Urea Nitrogen 43 mg/dL (8-26); Calcium 9.4 mg/dL (8.6-10.8); Carbon Dioxide 26 mEq/L (19-29); Chloride 104 mEq/L (98-109); Cholesterol 163 mg/dL (< 200); Glucose 255 mg/dL (70-99); HDL Cholesterol 41 mg/dL (40-59); LDL Cholesterol,Calculated 106 mg/dL (0-99); Osmolality,Calculated 306 (280-300); Potassium 4.2 mEq/L (3.5-4.5); Sodium 138 mEq/L (136-145); Triglycerides 79 mg/dL (< 150); eGFR For African Americans 38 (> 60); eGFR For Non-African Americans 32 (> 60)
[2016-09-28 03:02] LABS: INR 3.4; Prothrombin Time 37.7 Seconds (9.4-12.1)
[2016-09-28 03:23] LABS: Thyroid Stimulating Hormone 1.013 mcIU/mL (0.350-4.840)
[2016-09-28 03:25] LABS: Lipase > 1200 Units/L (8-78)
[2016-09-28] MEDS: Pantoprazole 40 MG in 0.9 % Sodium Chloride Mini Bag 100 ML IVC SCH ×2 (04:51→12:32)
[2016-09-28 05:17] LABS: C-Reactive Protein 95 mg/L (Less than 5)
[2016-09-28] MEDS: *HR* Heparin 5,000 UNIT/ML VIAL SQ SCH (05:37)
[2016-09-28] MEDS ORDERED: *HR* LORazepam 2 MG/ML VIAL IV ONE (08:11)
[2016-09-28] MEDS: Insulin LISPRO 300 UNITS/3 ML VIAL SQ SCH ×3 (08:27→17:07)
[2016-09-28] MEDS ORDERED: Isosorbide MONOnitrate (24 HR) 60 MG TAB.ER.24H PO SCH (09:00)
[2016-09-28] MEDS ORDERED: Aspirin 81 MG TAB.CHEW PO SCH (09:00)
[2016-09-28] MEDS ORDERED: Metoprolol XL (24 HR) Succ 50 MG TAB.ER.24H PO SCH (09:00)
[2016-09-28] MEDS ORDERED: amLODIPine 5 MG TABLET PO SCH (09:00)
[2016-09-28] MEDS ORDERED: predniSONE 1 MG TABLET PO SCH (09:00)
[2016-09-28] MEDS: *HR* Methadone 10 MG TABLET PO SCH ×2 (10:10→17:08)
[2016-09-28 12:31] LABS: Hematocrit 30.6 % (37.5-50.1); Hemoglobin 9.9 g/dL (12.9-16.9)
[2016-09-28] MEDS ORDERED: Ondansetron 4 MG/2 ML VIAL IVP PRN (13:34)
--- NOTE | 2016-09-28 14:41 | Internal Med Progress Note ---
Date of Encounter: 09/28/16 Time of Encounter: 10:00 - Assessment and plan (1) Biliary acute pancreatitis Current Visit: Yes Status: Acute Assessment and plan: concern for gallstone pancreatitis, per MRI common biliary duct dilatation and pancreatic duct dilatation pt at risk for ascending cholangitis, start zosyn , pt needs ERCP awaiting transfer to [facility], as we do not have GI on the weekends (2) Acute kidney injury superimposed on CKD Current Visit: Yes Status: Acute Assessment and plan: pre renal most likely due to volume depletion avoid hypotension give iv fluids (3) Acute duodenitis Current Visit: Yes Status: Acute Assessment and plan: infectious VS inflammatory on broad spectrum antibiotics check lactic acid level - Time Spent With Patient Greater than 35 minutes - Subjective Interval history: pt c/o abdominal pain in RUQ today and epigastric area denies vomiting but c/o nausea - Constitutional Vitals: Temp Pulse Resp BP Pulse Ox 97.8 F 100 16 145/82 98 09/28/16 10:49 09/28/16 10:49 09/28/16 10:49 09/28/16 10:49 09/28/16 10:49 General appearance: Present: disheveled, A&O X 2, morbidly obese, severe distress, answers questions appropriately - Respiratory Respiratory exam: Present: decreased breath sounds - Cardiovascular Cardiovascular exam: Present: RRR, +S1, +S2 - GI/Abdominal GI/Abdominal exam: Present: distended Additional comments: painin LUQ and RUQ - Extremities Exam Extremities exam: Present: warm, radial pulses palpable and symetrical Internal Medicine: Result - Labs CBC & Chem 7: 09/28/16 12:18 09/28/16 02:36 Labs: Short CBC 09/27/16 09/28/16 09/28/16 Range/Units 20:42 02:36 12:18 WBC 21.9 H (4.3-11.1) K/mcL Hgb 10.7 L 10.0 L 9.9 L (12.9-16.9) g/dL Hct 33.5 L 31.5 L 30.6 L (37.5-50.1) % Plt Count 308 (140-400) K/mcL BMP 09/28/16 02:36 Sodium 138 Potassium 4.2 Chloride 104 Carbon Dioxide 26 BUN 43 H Creatinine 2.03 H Glucose 255 H Calcium 9.4 Cardiac Enzymes 09/27/16 09/28/16 09/28/16 Range/Units 20:42 02:36 08:36 Troponin I 0.02 0.03 0.03 (0-0.03) ng/mL - ABG Interpretation ABG results: PT/INR, D-dimer PT 37.7 Seconds (9.4-12.1) H D 09/28/16 02:36 - Impressions Impressions Abdomen MRI 09/28/16 04:37 IMPRESSION: 1. Unchanged duodenitis causing secondary cholecystitis ; correlate with endoscopy. D/ / Mo Cardoza MD / Mo Cardoza MD Interpreting Provider: Mo Cardoza MD Consult Discharge Plan - Plan [facility]errals: [facility] [Primary Care Provider] -
[2016-09-28] MEDS ORDERED: Piperacillin/Tazobactam 3.375 GM in D5% in Water (Mini-Bag+) 100 ML IVPB SCH (15:00)
--- NOTE | 2016-09-28 15:05 | Discharge Summary ---
Date of Encounter: 09/28/16 Time of Encounter: 10:00 - Discharge Diagnosis (1) Biliary acute pancreatitis Priority: Secondary Status: Acute Qualifiers: Qualified Code(s): K85.10 - Biliary acute pancreatitis without necrosis or infection (2) Acute kidney injury superimposed on CKD Priority: Secondary Status: Acute (3) Acute duodenitis Priority: Secondary Status: Acute - Discharge Medications Home Medications: Amlodipine Besylate 10 mg PO DAILY 09/27/16 [History] Aspirin 81 mg PO DAILY 09/27/16 [History] Memantine [Namenda] 5 mg PO HS 09/27/16 [History] Methadone 60 mg PO Q8HR 09/27/16 [History] Metoprolol Succinate 100 mg PO DAILY 09/27/16 [History] Nitroglycerin [Nitrostat] 0.4 mg SL AD PRN 09/27/16 [History] Nystatin POWDER [Nystop] 1 appl TP BID 09/27/16 [History] Sertraline [Zoloft] 100 mg PO DAILY 09/27/16 [History] Acetaminophen [Tylenol] 650 mg PO Q6HR PRN #0 tablet 09/28/16 [Rx] Glucagon, Human Recombinant [Glucagen] 1 mg IM ONCE PRN #0 vial 09/28/16 [Rx] HYDROmorphone (PF) [Dilaudid] 0.5 mg IVP Q2H PRN #0 syringe 09/28/16 [Rx] LORazepam [Ativan] 0.5 mg PO HS PRN #0 tablet 09/28/16 [Rx] Nitroglycerin 0.5 inch TP Q6HNTG packet 09/28/16 [Rx] Ondansetron [Zofran] 4 mg IVP Q6HR PRN #0 vial 09/28/16 [Rx] Pantoprazole [Protonix] 40 mg IVP DAILY vial 09/28/16 [Rx] Allergies/Adverse Reactions: Allergies colchicine Allergy (Verified 09/27/16 16:48) Difficulty Breathing gabapentin Allergy (Verified 09/27/16 16:48) Difficulty Breathing griseofulvin Allergy (Verified 09/27/16 16:48) Difficulty Breathing methocarbamol Allergy (Verified 09/27/16 16:48) Difficulty Breathing pregabalin [From Lyrica] Allergy (Verified 09/27/16 16:48) Difficulty Breathing sulfamethoxazole [From Bactrim] Allergy (Verified 09/27/16 16:48) Difficulty Breathing trimethoprim [From Bactrim] Allergy (Verified 09/27/16 16:48) Difficulty Breathing acarbose Adverse Reaction (Verified 09/27/16 16:48) Difficulty Breathing IV CONTRAST Allergy (Uncoded 09/27/16 16:48) Difficulty Breathing Procedures/tests Complete & Pending: Procedures Performed prior 72 hours Category Date Time Status MRCP [MR abdomen wo con] [MR] Routine MRI 09/28/16 04:37 Completed EV echocardiogram Routine Y 09/28/16 13:59 Ordered Date of admission: 09/27/16 18:24 Primary care physician: [facility] Consults: 09/28/16 08:00 Consult to Gastroenterology [CONS] Routine Consulting Provider: [facility] Reason for Consult: Severe acute duodenitis and pancreatitis in a patient with prior history of an induced rectal bleeding 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 Please evaluate and advise. Time Notified: 01:33 Call Completed: No 09/28/16 13:58 Consult to Surgery [CONS] Routine Consulting Provider: [facility] Reason for Consult: galstone pancreatitis? Call Completed: Yes Discharging clinician: Flavia Restrepo - Patient Status Disposition: Transfer Critical Access Hosp Condition: Critical Overall status at discharge: patient is not back to baseline - Discharge Instructions Instructions: Pancreatitis (DC) Follow Up With: [facility] [Primary Care Provider] - - Diet and Activity Diet: other (npo) Hospital course: Mr. Hoffmann is a 81 year old male with PMH significant for morbid obesity HTN , and DVT presented with one day hx of difusse abdominal pain nausea vomiting and low grade fever, on admission CT of abdomen showed duondenitis VS mass in duodenum , lipase was 1100 WBC 52187 INR was 10 , pt had and MRI of the abdomen that showed dilatation of the common biliary duct with intra and extra hepatic biliary dilatation suspitious for CBD obstruction , pt [place] [address] concern for ascending cholangitis we do not have GI on the weekens spoke with GI doctor at [facility] Dr Grayson Rodriguez accepted pt to be transfer , his INR is 3.4 currently but he will receive one one of FFP , condition is sable - Time Spent with Patient Total time spent providing and/or coordinating discharge services: Greater than 30 minutes - Constitutional Vitals: Temp Pulse Resp BP Pulse Ox 97.8 F 100 16 145/82 98 09/28/16 10:49 09/28/16 10:49 09/28/16 10:49 09/28/16 10:49 09/28/16 10:49 General appearance: Present: disheveled, A&O X 2, morbidly obese, severe distress, answers questions appropriately - Respiratory Respiratory exam: Present: decreased breath sounds - Cardiovascular Cardiovascular exam: Present: RRR, +S1, +S2 - GI/Abdominal GI/Abdominal exam: Present: soft Additional comments: tender to palpation in LUQ and RUQ - Extremities Exam Extremities exam: Present: warm, radial pulses palpable and symetrical - Neurological Exam Neurological exam: Present: strengths equal and symetr throughout
[2016-09-28] MEDS ORDERED: Dexamethasone 4 MG/ML VIAL IVP ONE (15:09)
[2016-09-28 18:56] VITALS: BP 134/88
[2016-09-28] MEDS ORDERED: Melatonin 3 MG TABLET PO SCH (21:00)
[2016-09-29] MEDS ORDERED: Nitroglycerin 1 INCH/GM PACKET TP SCH (06:00)
[2016-09-29] MEDS ORDERED: Pantoprazole 40 MG VIAL IVP SCH (09:00)
--- NOTE | 2016-09-30 12:07 | Electrocardiograph Report ---
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
== END 2016-09-28 19:12 | disposition short-term general hospital (02) | DRG 438 ==
LOC: 2ANU 14:50 → EMEROO 14:50 → 2ANU 19:50
PROVIDERS: ADMIT Emergency Medicine; ATTEND Emergency Medicine

== ENCOUNTER 2017-07-10 10:10 | Inpatient (IN) ==
[2017-07-10] MEDS ORDERED: 0.9 % Sodium Chloride 1,000 ML IVC ONE (10:28)
--- NOTE | 2017-07-10 10:39 | Emergency Department Note ---
Disposition Clinical Impression: Warfarin-induced coagulopathy Hematuria Qualifiers: Hematuria type: gross Qualified Code(s): R31.0 - Gross hematuria Anemia Qualifiers: Anemia type: due to chronic kidney disease Chronic kidney disease stage: unspecified stage Qualified Code(s): N18.9 - Chronic kidney disease, unspecified Disposition: Admitted As Inpatient Condition: Fair Male Urogenital HPI - General Chief complaint: ED Urogenital-Male Stated complaint: Blood in Urine Time Seen by Provider: 07/10/17 10:24 Source: patient Limitations: no limitations Nursing Notes Reviewed: Yes Vital Signs Reviewed: Yes - History of Present Illness HPI Narrative: Patient presents per EMS and I did see the patient immediately upon arrival and also spoke with the paramedics the patient did have onset of dysuria and urinary frequency at home last night and then this morning began to have gross hematuria. No back pain or abdominal pain. No fevers or vomiting. The patient does have a history of urinary tract infections. No medication has been used for his symptoms. Social history: Nonsmoker - Related Data Home Medications Medication Instructions Recorded Confirmed Amlodipine Besylate 10 mg PO DAILY 09/27/16 07/10/17 Aspirin 81 mg PO DAILY 09/27/16 07/10/17 Memantine [Namenda] 5 mg PO HS 09/27/16 07/10/17 Methadone 60 mg PO Q8HR 09/27/16 07/10/17 Nystatin POWDER [Nystop] 1 appl TP BID 09/27/16 07/10/17 Atorvastatin Calcium [Lipitor] 80 mg PO HS 07/10/17 07/10/17 Calcium Carbonate [Calcium] 600 mg PO BID 07/10/17 07/10/17 Cholecalciferol (D-3) [Vitamin D] 2,000 unit PO DAILY 07/10/17 07/10/17 Cyclobenzaprine [Flexeril] 10 mg PO TID PRN 07/10/17 07/10/17 Ferrous Sulfate [Iron] 325 mg PO TID 07/10/17 07/10/17 Furosemide [Lasix] 40 mg PO BID 07/10/17 07/10/17 Isosorbide MONOnitrate (24 HR) 60 mg PO DAILY 07/10/17 07/10/17 [Imdur] Lisinopril [Zestril] 10 mg PO DAILY 07/10/17 07/10/17 Metoprolol Succinate 50 mg PO DAILY 07/10/17 07/10/17 Nitroglycerin [Nitrostat] 0.4 mg SL Q5M PRN 07/10/17 07/10/17 Sennosides/Docusate Sodium 2 tab PO DAILY 07/10/17 07/10/17 [Senna-Docusate Sodium Tablet] Sertraline [Zoloft] 50 mg PO DAILY 07/10/17 07/10/17 Warfarin [Coumadin] 7.5 mg PO DAILY 07/10/17 07/10/17 metFORMIN [Glucophage] 500 mg PO BIDWM 07/10/17 07/10/17 predniSONE [PredniSONE] 3 mg PO DAILY 07/10/17 07/10/17 Previous Rx's Medication Instructions Recorded Acetaminophen [Tylenol] 650 mg PO Q6HR PRN #0 tablet 09/28/16 Glucagon, Human Recombinant 1 mg IM ONCE PRN #0 vial 09/28/16 [Glucagen] HYDROmorphone (PF) [Dilaudid] 0.5 mg IVP Q2H PRN #0 syringe 09/28/16 LORazepam [Ativan] 0.5 mg PO HS PRN #0 tablet 09/28/16 Ondansetron [Zofran] 4 mg IVP Q6HR PRN #0 vial 09/28/16 Pantoprazole [Protonix] 40 mg IVP DAILY vial 09/28/16 Allergies Allergy/AdvReac Type Severity Reaction Status Date / Time colchicine Allergy Difficulty Verified 07/10/17 10:20 Breathing gabapentin Allergy Difficulty Verified 07/10/17 10:20 Breathing griseofulvin Allergy Difficulty Verified 07/10/17 10:20 Breathing methocarbamol Allergy Difficulty Verified 07/10/17 10:20 Breathing pregabalin [From Lyrica] Allergy Difficulty Verified 07/10/17 10:20 Breathing sulfamethoxazole Allergy Difficulty Verified 07/10/17 10:20 [From Bactrim] Breathing trimethoprim [From Bactrim] Allergy Difficulty Verified 07/10/17 10:20 Breathing acarbose AdvReac Difficulty Verified 07/10/17 10:20 Breathing IV CONTRAST Allergy Difficulty Uncoded 09/27/16 16:48 Breathing Review of Systems: Denies any fevers or vomiting but does have nausea Constitutional: No fever Vision: No blurred vision ENT: No rhinorrhea Respiratory: No cough Allergic: No allergies : + blood in urine GI: No blood in stool Hematologic: No bruising Dermatologic: No skin rash Musculoskeletal: No pain in the extremities Neuro: No numbness of the extremities Past Medical History - Past Medical History Medical history: Reports: arthritis, asthma, coronary artery disease, DVT, dementia, diabetes, fibromyalgia, GERD, GI bleed, hyperlipidemia, hypertension, osteoporosis, renal disease, venous stasis, other Surgical history: Reports: appendectomy, arthroscopy, herniorrhaphy, orthopedic , other, other Psychiatric history: Reports: anxiety, depression, other - Social History Smoking Status: Former smoker Smokeless Tobacco Status: No Alcohol use: Reports: none Drug use: Reports: none Physical Exam CONSTITUTIONAL: Alert and oriented X3, well-nourished, well appearing, in no apparent distress HEAD: Normocephalic; atraumatic. EYES: PERRL, no scleral icterus. NOSE: The nose is normal in appearance without rhinorrhea RESP: Normal chest excursion with respiration; breath sounds clear and equal bilaterally; no wheezes, rhonchi, or rales CARD: Regular rhythm, without murmurs, rub or gallop ABD: Non-distended; non-tender, soft,without rigidity, rebound or guarding SKIN: Normal for age and race; warm and dry; no apparent lesions Back: Normal appearance, no flank pain - General Limitations: no limitations General appearance: alert, in no apparent distress Course Vital Signs Temperature 99.7 F H 07/10/17 10:11 Pulse Rate 102 07/10/17 10:11 Respiratory Rate 18 07/10/17 10:11 Blood Pressure 162/86 07/10/17 10:11 O2 Sat by Pulse Oximetry 93 07/10/17 10:11 Temperature 99.7 F H 07/10/17 10:11 Pulse Rate 100 07/10/17 12:04 Respiratory Rate 18 07/10/17 12:04 Blood Pressure 162/86 07/10/17 12:04 O2 Sat by Pulse Oximetry 100 07/10/17 12:04 Oxygen Delivery Oxygen Delivery Nasal Cannula Urogenital-Male - MDM Narrative Medical decision making narrative: The patient is bright and alert and well appearance, urine as well as blood testing is pending. CT scan will be done looking for a ureteral stone or a renal cell carcinoma. 1039 I did review the patient's lab results. Does have chronic anemia and chronic renal insufficiency however does have significant amount of bleeding and because of his anemia does not have a lot of room for blood loss and in addition with the extensive amount of bleeding and also the coagulopathy from the Coumadin patient will be given vitamin K 5 mg by mouth and I will speak with the hospitalist about admission. Hemodynamically the patient is stable at this time. 1150 I did speak with the hospitalist who accepts the patient for admission with the main intention to make sure he does not develop post renal obstruction as well as to monitor serial CBCs as he does have significant ongoing blood loss. 1157 Pt has leuk esterace positive so will start rocephin 1201 - Medical Records Medical records reviewed: Yes I reviewed the patient's medical records. - Lab Data Lab results reviewed: Yes I reviewed the patient's lab results. Result diagrams: 07/10/17 10:43 07/10/17 10:43 Lab Results 07/10/17 07/10/17 07/10/17 Range/Units 10:43 10:43 10:43 WBC 13.5 H (4.3-11.1) K/mcL RBC 3.08 L (4.19-5.50) M/mcL Hgb 8.5 L (12.9-16.9) g/dL Hct 27.1 L (37.5-50.1) % MCV 88.0 (83.0-100.0) fL MCH 27.6 L (28.0-33.3) pg MCHC 31.4 L (31.6-35.5) g/dL RDW 16.3 H (11.5-14.5) % Plt Count 229 (140-400) K/mcL MPV 8.6 L (9.4-12.4) fL PT 75.8 H* (9.4-12.1) Seconds INR 6.8 H* Sodium 136 (136-145) mEq/L Potassium 5.0 H (3.5-4.5) mEq/L Chloride 95 L (98-109) mEq/L Carbon Dioxide 29 (19-29) mEq/L BUN 37 H (8-26) mg/dL Creatinine 1.71 H (0.72-1.25) mg/dL Est GFR ( Amer) 47 L (> 60) Est GFR (Non-Af Amer) 38 L (> 60) BUN/Creatinine Ratio 22 (6-26) Glucose 151 H (70-99) mg/dL Calculated Osmolality 294 (280-300) Calcium 9.2 (8.6-10.8) mg/dL Ur Specimen Adequacy Urine Color (Yellow) Urine Clarity (Clear) Urine pH (5.0-8.0) pH Units Ur Specific [place] (1.010-1.025) Urine Protein (Neg-Trace) mg/dL Urine Glucose (UA) (Normal) mg/dL Urine Ketones (Negative) mg/dL Urine Blood (Negative) Urine Nitrite (Negative) Urine Bilirubin (Negative) Urine Urobilinogen (Normal) mg/dL Ur Leukocyte Esterase (Negative) 07/10/17 Range/Units 10:58 WBC (4.3-11.1) K/mcL RBC (4.19-5.50) M/mcL Hgb (12.9-16.9) g/dL Hct (37.5-50.1) % MCV (83.0-100.0) fL MCH (28.0-33.3) pg MCHC (31.6-35.5) g/dL RDW (11.5-14.5) % Plt Count (140-400) K/mcL MPV (9.4-12.4) fL PT (9.4-12.1) Seconds INR Sodium (136-145) mEq/L Potassium (3.5-4.5) mEq/L Chloride (98-109) mEq/L Carbon Dioxide (19-29) mEq/L BUN (8-26) mg/dL Creatinine (0.72-1.25) mg/dL Est GFR ( Amer) (> 60) Est GFR (Non-Af Amer) (> 60) BUN/Creatinine Ratio (6-26) Glucose (70-99) mg/dL Calculated Osmolality (280-300) Calcium (8.6-10.8) mg/dL Ur Specimen Adequacy See below A Urine Color Red A (Yellow) Urine Clarity Cloudy A (Clear) Urine pH 7.0 (5.0-8.0) pH Units Ur Specific [place] 1.028 H (1.010-1.025) Urine Protein >=1000 H (Neg-Trace) mg/dL Urine Glucose (UA) Normal (Normal) mg/dL Urine Ketones Negative (Negative) mg/dL Urine Blood Large H (Negative) Urine Nitrite Negative (Negative) Urine Bilirubin Negative (Negative) Urine Urobilinogen Normal (Normal) mg/dL Ur Leukocyte Esterase Moderate H (Negative)
[2017-07-10 10:53] LABS: Hematocrit 27.1 % (37.5-50.1); Hemoglobin 8.5 g/dL (12.9-16.9); Mean Corpuscular HGB Conc 31.4 g/dL (31.6-35.5); Mean Corpuscular Hemoglobin 27.6 pg (28.0-33.3); Mean Platelet Volume 8.6 fL (9.4-12.4); Platelet Count 229 K/mcL (140-400); Red Blood Count 3.08 M/mcL (4.19-5.50); Red Cell Distribution Width 16.3 % (11.5-14.5)
[2017-07-10 11:04] LABS: Calcium 9.2 mg/dL (8.6-10.8)
[2017-07-10 11:18] LABS: Bilirubin,Urine Negative (Negative); Blood,Urine Large (Negative); Clarity,Urine Cloudy (Clear); Glucose,Urine (UA) Normal (Normal); Ketones,Urine Negative (Negative); Leukocyte Esterase,Urine Moderate (Negative); Nitrite,Urine Negative (Negative); Protein,Urine >=1000 mg/dL (Neg-Trace); Specific Gravity,Urine 1.028 (1.010-1.025); Urobilinogen,Urine Normal (Normal)
[2017-07-10 11:21] LABS: Color,Urine Red (Yellow)
[2017-07-10 11:32] LABS: INR 6.8
[2017-07-10 11:33] LABS: Prothrombin Time 75.8 Seconds (9.4-12.1)
[2017-07-10] MEDS ORDERED: *HR* Phytonadione 5 MG TABLET PO ONE (11:51)
[2017-07-10] MEDS ORDERED: Ondansetron 4 MG/2 ML VIAL IVP PRN (12:29)
[2017-07-10] MEDS ORDERED: *HR* LORazepam 0.5 MG TABLET PO PRN (12:29)
[2017-07-10] MEDS ORDERED: Nitroglycerin 0.4 MG TAB.SUBL SL PRN (12:29)
[2017-07-10] MEDS ORDERED: Acetaminophen 325 MG TABLET PO PRN (12:29)
[2017-07-10] MEDS ORDERED: Naloxone 0.4 MG/ML INJ IVP PRN (13:40)
[2017-07-10] MEDS ORDERED: Dextrose Gel 15 GM PO PRN ×2 (13:40)
[2017-07-10] MEDS ORDERED: *HR* Dextrose 50 % in Water (Syg) 50 ML SYRINGE IVP PRN (13:40)
[2017-07-10] MEDS ORDERED: D5% in Water 1,000 ML IVC PRN (13:40)
--- NOTE | 2017-07-10 13:53 | Internal Med History&Physical ---
<Chele Uribe - Last Filed: 07/10/17 13:50> Date of Encounter: 07/10/17 Time of Encounter: 13:50 Assessment and Plan (1) Warfarin-induced coagulopathy Current visit: Yes Status: Acute Patient on Coumadin for remote history of DVT. Supratherapeutic PT/INR and gross hematuria. Anemia noted on H&H. Currently hemodynamically stable, in no distress Every 6 hours H&H PT/INR this evening and in the morning Was given 5 mg vitamin K by mouth Type and screen Continuous tele and SPO2 monitoring Check an iron profile CBC and BMP in the morning (2) Acute kidney injury superimposed on CKD Current visit: Yes Status: Acute History of chronic kidney disease. Patient has KALIE, currently experiencing acute blood loss. BMP in the morning 0.9% normal saline at 125 mL per hour Hold nephrotoxic agents (3) Hematuria Current visit: Yes Status: Acute Hematuria caused by warfarin-induced coagulopathy. See plan above Qualifiers: Hematuria type: gross Qualified Code(s): R31.0 - Gross hematuria (4) Anemia Current visit: Yes Status: Acute HISTORY OF Chronic anemia. H&H worse than baseline, caused by warfarin-induced coagulopathy. See plan above Qualifiers: Anemia type: due to chronic kidney disease Chronic kidney disease stage: unspecified stage Qualified Code(s): N18.9 - Chronic kidney disease, unspecified; D63.1 - Anemia in chronic kidney disease; D63.1 - Anemia in chronic kidney disease (5) Hyperkalemia Current visit: Yes Status: Acute Caused by KALIE. Hold LESLIE, recheck potassium with morning labs (6) Type 2 diabetes mellitus Current visit: Yes Status: Chronic Chronic type 2 diabetes. Patient metformin at home. 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 Restart home dose of beta candace, nitrate and Norvasc. Hold LESILE inhibitor Qualifiers: Hypertension type: unspecified secondary hypertension Qualified Code(s): I15.9 - Secondary hypertension, unspecified; I15 - Secondary hypertension (8) Dyslipidemia Current visit: Yes Status: Chronic History of dyslipidemia continue statin (9) History of DVT (deep vein thrombosis) Current visit: Yes Status: Chronic Remote history of DVT greater than 10 years. Patient is on Coumadin for this. However we will Coumadin at this time due to anemia and gross hematuria Internal Medicine - H&P: HPI Chief complaint: Gross hematuria Admitted From: Home Plans for Post Hospital Care: Home History of present illness: Mr. Hoffmann is a 82 year old male with a PMH of arthritis, asthma, CAD, DVT, DM II , dementia, fibromyalgia, GERD, GI bleed, HLD, HTN, osteoporosis, renal disease , venous stasis, anxiety and depression. He presents today with gross hematuria which began yesterday evening. He reports multiple episodes over the last 24 hours. Most recent episode was just prior to examination. He is on warfarin at home for remote history of DVT right lower extremity. He reports that he has had multiple episodes of gross hematuria and that he typically just holds a dose of warfarin and it resolves. Reports dysuria and increased . Denies weight loss, fatigue, fever, night sweats, shortness of breath, dizziness, falls. CT of abdomen and pelvis reveals indeterminate intraluminal hyperdensity in the bladder which is likely hemorrhagic. Past Med Surg Social Fam HX - Past Medical History Medical history: arthritis, asthma, coronary artery disease, DVT, dementia, diabetes, fibromyalgia, GERD, GI bleed, hyperlipidemia, hypertension, osteoporosis, renal disease, venous stasis, other Psychiatric history: anxiety, depression, other - Past Surgical History Surgical History: appendectomy, arthroscopy, herniorrhaphy, orthopedic, other, other - Social History Smoking Status: Former smoker Smokeless Tobacco Status: No Alcohol use: none Drug use: none - Additional Family History Additional family history: Patient states his family has an unremarkable health history reporting no illnesses Internal Medicine - H&P: Meds Amlodipine Besylate 10 mg PO DAILY 09/27/16 [History] Aspirin 81 mg PO DAILY 09/27/16 [History] Memantine [Namenda] 5 mg PO HS 09/27/16 [History] Methadone 60 mg PO Q8HR 09/27/16 [History] Nystatin POWDER [Nystop] 1 appl TP BID 09/27/16 [History] Acetaminophen [Tylenol] 650 mg PO Q6HR PRN #0 tablet 09/28/16 [Rx] Glucagon, Human Recombinant [Glucagen] 1 mg IM ONCE PRN #0 vial 09/28/16 [Rx] HYDROmorphone (PF) [Dilaudid] 0.5 mg IVP Q2H PRN #0 syringe 09/28/16 [Rx] LORazepam [Ativan] 0.5 mg PO HS PRN #0 tablet 09/28/16 [Rx] Ondansetron [Zofran] 4 mg IVP Q6HR PRN #0 vial 09/28/16 [Rx] Pantoprazole [Protonix] 40 mg IVP DAILY vial 09/28/16 [Rx] Atorvastatin Calcium [Lipitor] 80 mg PO HS 07/10/17 [History] Calcium Carbonate [Calcium] 600 mg PO BID 07/10/17 [History] Cholecalciferol (D-3) [Vitamin D] 2,000 unit PO DAILY 07/10/17 [History] Cyclobenzaprine [Flexeril] 10 mg PO TID PRN 07/10/17 [History] Ferrous Sulfate [Iron] 325 mg PO TID 07/10/17 [History] Furosemide [Lasix] 40 mg PO BID 07/10/17 [History] Isosorbide MONOnitrate (24 HR) [Imdur] 60 mg PO DAILY 07/10/17 [History] Lisinopril [Zestril] 10 mg PO DAILY 07/10/17 [History] Metoprolol Succinate 50 mg PO DAILY 07/10/17 [History] Nitroglycerin [Nitrostat] 0.4 mg SL Q5M PRN 07/10/17 [History] Sennosides/Docusate Sodium [Senna-Docusate Sodium Tablet] 2 tab PO DAILY [History] Sertraline [Zoloft] 50 mg PO DAILY 07/10/17 [History] Warfarin [Coumadin] 7.5 mg PO DAILY 07/10/17 [History] metFORMIN [Glucophage] 500 mg PO BIDWM 07/10/17 [History] predniSONE [PredniSONE] 3 mg PO DAILY 07/10/17 [History] 3 Allergy/AdvReac Type Severity Reaction Status Date / Time colchicine Allergy Difficulty Verified 07/10/17 10:20 Breathing gabapentin Allergy Difficulty Verified 07/10/17 10:20 Breathing griseofulvin Allergy Difficulty Verified 07/10/17 10:20 Breathing methocarbamol Allergy Difficulty Verified 07/10/17 10:20 Breathing pregabalin [From Lyrica] Allergy Difficulty Verified 07/10/17 10:20 Breathing sulfamethoxazole Allergy Difficulty Verified 07/10/17 10:20 [From Bactrim] Breathing trimethoprim [From Bactrim] Allergy Difficulty Verified 07/10/17 10:20 Breathing acarbose AdvReac Difficulty Verified 07/10/17 10:20 Breathing IV CONTRAST Allergy Difficulty Uncoded 09/27/16 16:48 Breathing All Systems PM: A 10-system review of systems was performed and is negative for pertinent findings except as documented above in the HPI. - Constitutional Constitutional: no chills, no fatigue, no fever(s), no falls, no night sweats, no weakness - EENT Eyes: no change in vision, no discharge, no pain, no photophobia Ears: no ear discharge, no ear pain, no tinnitus Nose, mouth and throat: no dysphagia, no nasal discharge, no neck pain, no sore throat - Cardiovascular Cardiovascular ROS IM: no chest pain, no diaphoresis, no dyspnea, no dyspnea on exertion, no edema, no irregular heart rhythm, no lightheadedness, no palpitations, no syncope - Respiratory Respiratory: no cough, no dyspnea, no dyspnea on exertion, no wheezing, no excessive phlegm production - Gastrointestinal Gastrointestinal: no abdominal pain, no diarrhea, no hematemesis, no hematochezia, no melena, no nausea, no vomiting - Genitourinary Genitourinary ROS male: as per HPI, difficulty urinating, dysuria, hematuria, urinary frequency, urinary hesitancy, no flank pain, no penile discharge, no post void dribbling, no urinary incontinence, no urinary urgency - Musculoskeletal Musculoskeletal ROS IM: no numbness, no tingling - Integumentary Integumentary IM: no rash, no unusual bruising - Neurological Neurological ROS: no confusion, no convulsions, no dizziness, no focal weakness , no frequent falls, no headache(s), no numbness, no tingling, no tremor(s) - Hematologic/Lymphatic Hematologic/Lymphatic: no easy bruising - Constitutional Vitals: Temp Pulse Resp BP Pulse Ox 99.7 F H 100 18 162/86 100 07/10/17 10:11 07/10/17 12:04 07/10/17 12:04 07/10/17 12:04 07/10/17 12:04 General appearance: Present: cooperative, A&O X 3, no acute distress, answers questions appropriately - Head Head exam: Present: atraumatic, normocephalic - Eye Eye exam: Present: PERRL, conjuntiva pink, sclera anicteric Pupils: Present: PERRL - Neck Neck exam general surgery: Present: supple, trachea midline. Absent: lymphadenopathy - Respiratory Respiratory exam: Present: CTAB. Absent: accessory muscle use, rales, rhonchi, wheezes - Cardiovascular Cardiovascular exam: Present: RRR, +S1, +S2. Absent: diastolic murmur, gallop, rubs, systolic murmur - GI/Abdominal GI/Abdominal exam: Present: normal bowel sounds, soft, no peritoneal signs. Absent: distended, tenderness - exam: Present: normal inspection Additional comments: Gross hematuria noted in the toilet bowel examination - Extremities Exam Extremities exam: Present: warm, radial pulses palpable and symmetrical. Absent : calf tenderness, cyanotic, pedal edema - Neurological Exam Neurological exam: Present: CN II-XII intact, oriented X3, no focal deficits. Absent: pronater drift, facial droop, speech deficit - Skin Skin exam: Present: dry, intact Internal Med - H&P Results - Labs CBC & Chem 7: 07/10/17 10:43 07/10/17 10:43 - Diagnostic Studies CT scan - abdomen Status: image reviewed by me Additional comments: CT abdomen and pelvis reveals indeterminate intraluminal hyperdensity which could be hemorrhagic. A tumor or infection is also in the differential. Given patient's presentation likely hemorrhagic - VTE Reasons for not Prescribing Prophylaxis: Medical contraindication <Darrick Bryant - Last Filed: 07/10/17 20:02> Date of Encounter: 07/10/17 Internal Medicine - H&P: HPI History of present illness: Mr. Hoffmann is a 82 year old male All Systems PM: A 10-system review of systems was performed and is negative for pertinent findings except as documented above in the HPI. - Constitutional Vitals: Temp Pulse Resp BP Pulse Ox 98.4 F 94 16 140/81 96 07/10/17 16:13 07/10/17 16:13 07/10/17 16:13 07/10/17 16:13 07/10/17 16:13 Internal Med - H&P Results - Labs CBC & Chem 7: 07/10/17 17:44 07/10/17 17:44 Labs: Short CBC 07/10/17 Range/Units 17:44 Hgb 8.6 L (12.9-16.9) g/dL Hct 27.5 L (37.5-50.1) % BMP 07/10/17 17:44 Potassium 4.3 - Attending Attestation I independently obtained history and examined this patient and my medical decision-making was reviewed with the nurse practitioner. I agree with the documented findings, disposition and treatment plan as described. My findings are summarized below: Patient presented with gross hematuria. He continues to report having dark bloody urine. He was given vitamin K. Repeat INR is 5.3. Hemoglobin is stable. Plan: We will observe overnight. Recheck INR. If worsening bleeding wall start FFP. If he cannot urinate he will have to have a three-way catheter inserted. Darrick Bryant MD
[2017-07-10 17:59] LABS: Hematocrit 27.5 % (37.5-50.1); Hemoglobin 8.6 g/dL (12.9-16.9)
[2017-07-10] MEDS ORDERED: Warfarin perPT PO PRN (18:00)
[2017-07-10 18:16] LABS: INR 5.5; Prothrombin Time 61.3 Seconds (9.4-12.1)
[2017-07-10] MEDS: *HR* Methadone 10 MG TABLET PO SCH (18:26)
[2017-07-10] MEDS: Insulin LISPRO 300 UNITS/3 ML VIAL SQ SCH ×2 (18:27→21:55)
[2017-07-10] MEDS: 0.9 % Sodium Chloride 1,000 ML IVC SCH (18:28)
[2017-07-10 18:42] LABS: % Iron Saturation 11 % (20-55); Iron 31 mcg/dL (65-175); Transferrin 209 mg/dL (174-364)
[2017-07-10] MEDS ORDERED: Temazepam 15 MG CAPSULE PO PRN (20:10)
[2017-07-10] MEDS: Furosemide 40 MG TABLET PO SCH (21:58)
[2017-07-10 22:08] LABS: Hematocrit 25.6 % (37.5-50.1); Hemoglobin 8.1 g/dL (12.9-16.9)
[2017-07-11] MEDS: *HR* Methadone 10 MG TABLET PO SCH ×3 (01:05→20:15)
[2017-07-11 04:13] LABS: Basophils % 0.3 %; Eosinophils # 0.3 K/mcL (0.0-0.6); Eosinophils % 2.8 %; Hematocrit 25.1 % (37.5-50.1); Hemoglobin 7.8 g/dL (12.9-16.9); Lymphocytes # 2.6 K/mcL (0.6-4.6); Lymphocytes % 22.5 %; Mean Corpuscular HGB Conc 31.1 g/dL (31.6-35.5); Mean Corpuscular Hemoglobin 27.3 pg (28.0-33.3); Mean Corpuscular Volume 87.8 fL (83.0-100.0); Mean Platelet Volume 8.8 fL (9.4-12.4); Monocytes # 0.6 K/mcL (0.0-1.3); Monocytes % 5.5 %; Nucleated Red Blood Cells 0.2 /100 WBC (0); Platelet Count 224 K/mcL (140-400); Red Blood Count 2.86 M/mcL (4.19-5.50); Red Cell Distribution Width 16.4 % (11.5-14.5); Segmented Neutrophils % 67.9 %
[2017-07-11 04:17] LABS: INR 4.5
[2017-07-11 04:23] LABS: Calcium 9.2 mg/dL (8.6-10.8); Potassium 4.4 mEq/L (3.5-4.5)
[2017-07-11] MEDS: Metoprolol XL (24 HR) Succ 50 MG TAB.ER.24H PO SCH (09:10)
[2017-07-11] MEDS: Sennosides/Docusate Sodium TABLET PO SCH (09:10)
[2017-07-11] MEDS: predniSONE 1 MG TABLET PO SCH (09:10)
[2017-07-11] MEDS: Isosorbide MONOnitrate (24 HR) 60 MG TAB.ER.24H PO SCH (09:10)
[2017-07-11] MEDS: Aspirin 81 MG TAB.CHEW PO SCH (09:11)
[2017-07-11] MEDS: Pantoprazole 40 MG VIAL IVP SCH (09:11)
[2017-07-11] MEDS: amLODIPine 5 MG TABLET PO SCH (09:11)
[2017-07-11] MEDS: Cholecalciferol (D-3) 1,000 UNIT TABLET PO SCH (09:11)
[2017-07-11] MEDS: Insulin LISPRO 300 UNITS/3 ML VIAL SQ SCH ×4 (09:12→20:45)
[2017-07-11 10:11] LABS: Hematocrit 26.9 % (37.5-50.1); Hemoglobin 8.1 g/dL (12.9-16.9)
[2017-07-11 10:14] LABS: INR 3.9
[2017-07-11 10:17] LABS: Activated Partial Thrombo Time 47.8 Seconds (26.0-36.0)
[2017-07-11 10:20] LABS: Prothrombin Time 43.6 Seconds (9.4-12.1)
--- NOTE | 2017-07-11 10:20 | Internal Med Progress Note ---
Date of Encounter: 07/11/17 Time of Encounter: 10:18 - Assessment and plan (1) Warfarin-induced coagulopathy Current Visit: Yes Status: Acute Assessment and plan: Received Vitamin K on admission INR on admission 5.5 Improving Still having hematuria Hb is stable and patient is hemodynamically stable (2) Supratherapeutic INR Current Visit: Yes Status: Acute Assessment and plan: As above (3) Type 2 diabetes mellitus Current Visit: Yes Status: Chronic Assessment and plan: A1C 6.2 09/2016 patient is on metformin at home Continue sliding scale insulin ADA diet Monitor FS ACHS Qualifiers: Diabetes mellitus complication status: with unspecified complications Diabetes mellitus halfway insulin use: unspecified halfway insulin use status Qualified Code(s): E11.8 - Type 2 diabetes mellitus with unspecified complications (4) Hypertension Current Visit: Yes Status: Chronic Assessment and plan: Controlled, continue current meds Qualifiers: Hypertension type: unspecified secondary hypertension Qualified Code(s): I15.9 - Secondary hypertension, unspecified; I15 - Secondary hypertension (5) Dyslipidemia Current Visit: Yes Status: Chronic Assessment and plan: Continue home meds (6) History of DVT (deep vein thrombosis) Current Visit: Yes Status: Chronic Assessment and plan: Hold coumadin for now (7) CAD (coronary artery disease), [place] coronary artery Current Visit: Yes Status: Chronic Assessment and plan: on ASA, continue same No CP on BB, ACEI, Lipitor, Lasix, continue same Qualifiers: [place] vs. transplanted heart: [place] heart Associated angina: without angina Qualified Code(s): I25.10 - Atherosclerotic heart disease of [place] coronary artery without angina pectoris (8) Hematuria Current Visit: Yes Status: Acute Assessment and plan: As in Warfarin induced coagulopathy Urology-Dr. Herrera consulted Abdomen CT with indeterminate hypodensity in the bladder which may be hemorhagic or infectious lesion Send urine culture May need bladder irrigation Urology has been consulted Qualifiers: Hematuria type: gross Qualified Code(s): R31.0 - Gross hematuria (9) Anemia Current Visit: Yes Status: Chronic Assessment and plan: Acute on chronic, due to blood loss from hematuria Hb now 8.1, baseline is 10 Continue to monitor Type and screen Hemodynamically stable, for transfusion prn hemodynamic instability or Hb <8, continue to monitor Qualifiers: Anemia type: due to chronic kidney disease Chronic kidney disease stage: unspecified stage Qualified Code(s): N18.9 - Chronic kidney disease, unspecified; D63.1 - Anemia in chronic kidney disease; D63.1 - Anemia in chronic kidney disease (10) Hyperkalemia Current Visit: Yes Status: Acute Assessment and plan: K 5.0 on admission, improved to 4.4 Continue to monitor (11) Obesity (BMI 30-39.9) Current Visit: Yes Status: Chronic Assessment and plan: Lifestyle modification (12) CKD (chronic kidney disease) Current Visit: Yes Status: Chronic Assessment and plan: Cr seems to be stable from prior labs Possibly CKD III, patient may also have KALIE. His Creatinine in 09/2016 was 1.25 Obtain renal USS Qualifiers: Chronic kidney disease stage: stage 3 (moderate) Qualified Code(s): N18.3 - Chronic kidney disease, stage 3 (moderate) - Subjective Interval history: 82 M with hx of DVTS on coumadin admitted for warfarin induced coagulopathy with hematuria He has a PMH of CAD, CKD, DM, Obesity He still continues to have hematuria and complained of straining very hard due to blood clots, visible hematuria in toilet bowl He continues to also have dysuria and frequency No history of prior instrumentation INR is 3.1 this a.m, 5.5 on admission Hb is stable - Constitutional Vitals: Temp Pulse Resp BP Pulse Ox 97.8 F 94 16 155/77 98 07/11/17 07:44 07/11/17 07:44 07/11/17 07:44 07/11/17 07:44 07/11/17 07:44 General appearance: Present: cooperative, A&O X 3, pleasant, no acute distress, obese, answers questions appropriately - Head Head exam: Present: atraumatic, normocephalic - Eye Eye exam: Present: PERRL, conjuntiva pink, sclera anicteric Pupils: Present: PERRL - Neck Neck exam general surgery: Present: supple, trachea midline. Absent: lymphadenopathy - Respiratory Respiratory exam: Present: CTAB. Absent: accessory muscle use, rales, rhonchi, wheezes - Cardiovascular Cardiovascular exam: Present: RRR, +S1, +S2. Absent: diastolic murmur, gallop, rubs, systolic murmur - Additional comments: Deffered, toilet bowl with bloody urine - Extremities Exam Extremities exam: Present: pedal edema (trace bilateral pedal edema, chronic venous stasis changes), warm, radial pulses palpable and symmetrical. Absent: calf tenderness, cyanotic - Neurological Exam Neurological exam: Present: alert, CN II-XII intact, oriented X3, no focal deficits. Absent: pronater drift, facial droop, speech deficit - Skin Skin exam: Present: dry Internal Medicine: Result - Labs CBC & Chem 7: 07/11/17 10:01 07/11/17 03:14 Labs: Short CBC 07/10/17 07/10/17 07/11/17 Range/Units 17:44 21:50 03:14 WBC 11.7 H (4.3-11.1) K/mcL Hgb 8.6 L 8.1 L 7.8 L (12.9-16.9) g/dL Hct 27.5 L 25.6 L 25.1 L (37.5-50.1) % Plt Count 224 (140-400) K/mcL Neutrophils # 8.0 (1.6-8.9) K/mcL 07/11/17 Range/Units 10:01 WBC (4.3-11.1) K/mcL Hgb 8.1 L (12.9-16.9) g/dL Hct 26.9 L (37.5-50.1) % Plt Count (140-400) K/mcL Neutrophils # (1.6-8.9) K/mcL BMP 07/10/17 07/11/17 17:44 03:14 Sodium 137 Potassium 4.3 4.4 Chloride 100 Carbon Dioxide 29 BUN 33 H Creatinine 1.53 H Glucose 98 Calcium 9.2 - ABG Interpretation ABG results: PT/INR, D-dimer PT 50.0 Seconds (9.4-12.1) H* 07/11/17 03:14 - VTE Reasons for not Prescribing Prophylaxis: Medical contraindication Consult Discharge Plan - Plan [facility]errals: [facility]Primary Care Provider[facility] -
--- NOTE | 2017-07-11 15:30 | Urology - Consult Note ---
Date of Encounter: 07/11/17 Time of Encounter: 15:22 - Assessment and Plan (1) Gross hematuria Current Visit: Yes Status: Acute Assessment and plan: I reviewed the CT scan and the patient's bladder is actually herniating into his abdominal pannus however there is evidence of significant clot within the bladder. He is experiencing clot retention. bleeding should stop with improvement of INR. will proceed with cath placement and irrigation of the clots. keep cath in place until urine clear. will follow and evaluate tomorrow. Urology CN:HPI Consult date: 07/11/17 Reason for consult Urology: Gross Hematuria History of present illness: pt admitted with elevated INR and GH. difficulty urinating with clots. Past Med Surg Social Fam HX - Past Medical History Medical history: arthritis, asthma, coronary artery disease, DVT, dementia, diabetes, fibromyalgia, GERD, GI bleed, hyperlipidemia, hypertension, osteoporosis, renal disease, venous stasis, other Psychiatric history: anxiety, depression, other - Past Surgical History Surgical History: appendectomy, arthroscopy, herniorrhaphy, orthopedic, other, other - Social History Smoking Status: Former smoker Smokeless Tobacco Status: No Alcohol use: none Drug use: none - Family History Father Name: bin malcolm Living Status: Age at : 37 Cause of : fight Mother Name: galileo malcolm Living Status: Age at : 96 Cause of : old age Medications and Allergies Amlodipine Besylate 10 mg PO DAILY 09/27/16 [History] Aspirin 81 mg PO DAILY 09/27/16 [History] Memantine [Namenda] 5 mg PO HS 09/27/16 [History] Methadone 60 mg PO Q8HR 09/27/16 [History] Nystatin POWDER [Nystop] 1 appl TP BID 09/27/16 [History] Acetaminophen [Tylenol] 650 mg PO Q6HR PRN #0 tablet 09/28/16 [Rx] Glucagon, Human Recombinant [Glucagen] 1 mg IM ONCE PRN #0 vial 09/28/16 [Rx] HYDROmorphone (PF) [Dilaudid] 0.5 mg IVP Q2H PRN #0 syringe 09/28/16 [Rx] LORazepam [Ativan] 0.5 mg PO HS PRN #0 tablet 09/28/16 [Rx] Ondansetron [Zofran] 4 mg IVP Q6HR PRN #0 vial 09/28/16 [Rx] Pantoprazole [Protonix] 40 mg IVP DAILY vial 09/28/16 [Rx] Atorvastatin Calcium [Lipitor] 80 mg PO HS 07/10/17 [History] Calcium Carbonate [Calcium] 600 mg PO BID 07/10/17 [History] Cholecalciferol (D-3) [Vitamin D] 2,000 unit PO DAILY 07/10/17 [History] Cyclobenzaprine [Flexeril] 10 mg PO TID PRN 07/10/17 [History] Ferrous Sulfate [Iron] 325 mg PO TID 07/10/17 [History] Furosemide [Lasix] 40 mg PO BID 07/10/17 [History] Isosorbide MONOnitrate (24 HR) [Imdur] 60 mg PO DAILY 07/10/17 [History] Lisinopril [Zestril] 10 mg PO DAILY 07/10/17 [History] Metoprolol Succinate 50 mg PO DAILY 07/10/17 [History] Nitroglycerin [Nitrostat] 0.4 mg SL Q5M PRN 07/10/17 [History] Sennosides/Docusate Sodium [Senna-Docusate Sodium Tablet] 2 tab PO DAILY [History] Sertraline [Zoloft] 50 mg PO DAILY 07/10/17 [History] Warfarin [Coumadin] 7.5 mg PO DAILY 07/10/17 [History] metFORMIN [Glucophage] 500 mg PO BIDWM 07/10/17 [History] predniSONE [PredniSONE] 3 mg PO DAILY 07/10/17 [History] 3 Allergy/AdvReac Type Severity Reaction Status Date / Time colchicine Allergy Difficulty Verified 07/10/17 10:20 Breathing gabapentin Allergy Difficulty Verified 07/10/17 10:20 Breathing griseofulvin Allergy Difficulty Verified 07/10/17 10:20 Breathing methocarbamol Allergy Difficulty Verified 07/10/17 10:20 Breathing pregabalin [From Lyrica] Allergy Difficulty Verified 07/10/17 10:20 Breathing sulfamethoxazole Allergy Difficulty Verified 07/10/17 10:20 [From Bactrim] Breathing trimethoprim [From Bactrim] Allergy Difficulty Verified 07/10/17 10:20 Breathing acarbose AdvReac Difficulty Verified 07/10/17 10:20 Breathing IV CONTRAST Allergy Difficulty Uncoded 09/27/16 16:48 Breathing Review of Systems - Constitutional fatigue, no chills, no fever(s) - EENT Nose, mouth and throat: no dizziness - Cardiovascular no chest pain - Respiratory no cough - Gastrointestinal abdominal pain - Genitourinary hematuria - Musculoskeletal back pain - Integumentary no erythema - Neurological no confusion - Psychiatric no anxiety - Hematologic/Lymphatic easy bleeding - Allergic/Immunologic no throat swelling Exam Initial Vital Signs Temp Pulse Resp BP Pulse Ox 99.7 F H 102 18 162/86 93 07/10/17 10:11 07/10/17 10:11 07/10/17 10:11 07/10/17 10:11 07/10/17 10:11 - General physical appearance Present: no distress, chronically ill - Eyes Present: PERRL - ENT Present: normal nares - Neck Present: no masses - Respiratory Present: normal respiratory effort - Cardiovascular Cardiovascular exam IM: RRR - Abdomen Abdomen: Present: soft - Neurologic Absent: disoriented - Musculoskeletal Present: other - Additional Findings obese poor mobility Urology Results - Labs 07/11/17 10:01 07/11/17 03:14 Abnormal lab results WBC 11.7 K/mcL (4.3-11.1) H 07/11/17 03:14 RBC 2.86 M/mcL (4.19-5.50) L 07/11/17 03:14 Hgb 8.1 g/dL (12.9-16.9) L 07/11/17 10:01 Hct 26.9 % (37.5-50.1) L 07/11/17 10:01 MCH 27.3 pg (28.0-33.3) L 07/11/17 03:14 MCHC 31.1 g/dL (31.6-35.5) L 07/11/17 03:14 RDW 16.4 % (11.5-14.5) H 07/11/17 03:14 MPV 8.8 fL (9.4-12.4) L 07/11/17 03:14 Nucleated RBCs/100 WBC 0.2 /100 WBC (0) H 07/11/17 03:14 PT 43.6 Seconds (9.4-12.1) H* 07/11/17 10:01 APTT 47.8 Seconds (26.0-36.0) H 07/11/17 10:01 BUN 33 mg/dL (8-26) H 07/11/17 03:14 Creatinine 1.53 mg/dL (0.72-1.25) H 07/11/17 03:14 Est GFR ( Amer) 53 (> 60) L 07/11/17 03:14 Est GFR (Non-Af Amer) 44 (> 60) L 07/11/17 03:14 POC Glucose 138 (58-89) H 07/11/17 07:45 Iron 31 mcg/dL (65-175) L 07/10/17 17:44 % Saturation 11 % (20-55) L 07/10/17 17:44 Vitamin B12 933 pg/mL (213-816) H 07/10/17 17:44 Ur Specimen Adequacy See below A 07/10/17 10:58 Urine Color Red (Yellow) A 07/10/17 10:58 Urine Clarity Cloudy (Clear) A 07/10/17 10:58 Ur Specific [place] 1.028 (1.010-1.025) H 07/10/17 10:58 Urine Protein >=1000 mg/dL (Neg-Trace) H 07/10/17 10:58 Urine Blood Large (Negative) H 07/10/17 10:58 Ur Leukocyte Esterase Moderate (Negative) H 07/10/17 10:58 Diabetes panel 07/10/17 07/11/17 Range/Units 17:44 03:14 Sodium 137 (136-145) mEq/L Potassium 4.3 4.4 (3.5-4.5) mEq/L Chloride 100 (98-109) mEq/L Carbon Dioxide 29 (19-29) mEq/L BUN 33 H (8-26) mg/dL Creatinine 1.53 H (0.72-1.25) mg/dL Glucose 98 (70-99) mg/dL Calcium 9.2 (8.6-10.8) mg/dL Calcium panel 07/11/17 Range/Units 03:14 Calcium 9.2 (8.6-10.8) mg/dL Pituitary panel 07/10/17 07/11/17 Range/Units 17:44 03:14 Sodium 137 (136-145) mEq/L Potassium 4.3 4.4 (3.5-4.5) mEq/L Chloride 100 (98-109) mEq/L Carbon Dioxide 29 (19-29) mEq/L BUN 33 H (8-26) mg/dL Creatinine 1.53 H (0.72-1.25) mg/dL Glucose 98 (70-99) mg/dL Calcium 9.2 (8.6-10.8) mg/dL Adrenal panel 07/10/17 07/11/17 Range/Units 17:44 03:14 Sodium 137 (136-145) mEq/L Potassium 4.3 4.4 (3.5-4.5) mEq/L Chloride 100 (98-109) mEq/L Carbon Dioxide 29 (19-29) mEq/L BUN 33 H (8-26) mg/dL Creatinine 1.53 H (0.72-1.25) mg/dL Glucose 98 (70-99) mg/dL Calcium 9.2 (8.6-10.8) mg/dL All other labs normal. Procedures:Urology - Bladder Irrigation/Clot Evacuation Consent obtained: verbal consent Irrigation: saline Amount of Clot: 60cc Patient tolerated procedure: well Continuous Bladder Irrigation: Yes Complications: none Additional comments: 3 way silastic cath placed. irrigated 60cc clot. able to irrigate until transparent red. CBI started. irrigate PRN Consult Discharge Plan - Plan [facility]errals: [facility] [Primary Care Provider] -
[2017-07-12] MEDS: *HR* Belladonna Alkaloids/Opium 60 MG RECTAL SUPPOSITORY RC PRN (00:49)
[2017-07-12] MEDS: *HR* Methadone 10 MG TABLET PO SCH ×3 (04:57→21:30)
[2017-07-12] MEDS: 0.9 % Sodium Chloride 1,000 ML IVC SCH (04:58)
[2017-07-12 06:25] LABS: Basophils # 0.1 K/mcL (0.0-0.2); Basophils % 0.3 %; Eosinophils # 0.3 K/mcL (0.0-0.6); Eosinophils % 1.9 %; Hematocrit 23.1 % (37.5-50.1); Hemoglobin 7.3 g/dL (12.9-16.9); Lymphocytes # 3.9 K/mcL (0.6-4.6); Lymphocytes % 22.1 %; Mean Corpuscular HGB Conc 31.6 g/dL (31.6-35.5); Mean Corpuscular Hemoglobin 27.9 pg (28.0-33.3); Mean Corpuscular Volume 88.2 fL (83.0-100.0); Mean Platelet Volume 9.1 fL (9.4-12.4); Monocytes # 0.9 K/mcL (0.0-1.3); Monocytes % 5.3 %; Neutrophils # 12.1 K/mcL (1.6-8.9); Platelet Count 253 K/mcL (140-400); Red Blood Count 2.62 M/mcL (4.19-5.50); Red Cell Distribution Width 16.5 % (11.5-14.5); Segmented Neutrophils % 69.4 %
[2017-07-12 06:30] LABS: INR 3.1
[2017-07-12 06:42] LABS: Calcium 9.1 mg/dL (8.6-10.8); Potassium 4.7 mEq/L (3.5-4.5)
[2017-07-12] MEDS: Isosorbide MONOnitrate (24 HR) 60 MG TAB.ER.24H PO SCH (07:55)
[2017-07-12] MEDS: Aspirin 81 MG TAB.CHEW PO SCH (07:55)
[2017-07-12] MEDS: predniSONE 1 MG TABLET PO SCH (07:55)
[2017-07-12] MEDS: Metoprolol XL (24 HR) Succ 50 MG TAB.ER.24H PO SCH (07:55)
[2017-07-12] MEDS: amLODIPine 5 MG TABLET PO SCH (07:55)
[2017-07-12] MEDS: Insulin LISPRO 300 UNITS/3 ML VIAL SQ SCH ×4 (07:56→21:29)
[2017-07-12] MEDS: Sennosides/Docusate Sodium TABLET PO SCH (07:56)
[2017-07-12] MEDS: Pantoprazole 40 MG VIAL IVP SCH (07:56)
[2017-07-12] MEDS: Cholecalciferol (D-3) 1,000 UNIT TABLET PO SCH (07:56)
[2017-07-12] MEDS ORDERED: *HR* Phytonadione 5 MG TABLET PO ONE (08:21)
--- NOTE | 2017-07-12 08:47 | Urology Progress Note ---
Date of Encounter: 07/12/17 Time of Encounter: 08:45 - Assessment and Plan (1) Gross hematuria Current Visit: Yes Status: Acute Assessment and plan: all the clot issues overnight are likely old clots from the initial bleed and not new bleeding. Hopefully I was able to irrigate out all of the residual clot this morning. Still trying to manage this patient without surgical intervention Progress Note Subjective: still having pain Narrative: multiple issues with clot retention and clotting of cath overnight. Objective Initial Vital Signs Temp Pulse Resp BP Pulse Ox 99.7 F H 102 18 162/86 93 07/10/17 10:11 07/10/17 10:11 07/10/17 10:11 07/10/17 10:11 07/10/17 10:11 - General physical appearance Present: no distress - Additional Exam I irrigated the cath with multiple syringes. able to irrigate multiple old appearing clots. CBI actually running clear on moderate drip after irrigation - Labs 07/12/17 05:38 07/12/17 05:38 Diabetes panel 07/12/17 Range/Units 05:38 Sodium 137 (136-145) mEq/L Potassium 4.7 H (3.5-4.5) mEq/L Chloride 102 (98-109) mEq/L Carbon Dioxide 29 (19-29) mEq/L BUN 27 H (8-26) mg/dL Creatinine 1.40 H (0.72-1.25) mg/dL Glucose 168 H (70-99) mg/dL Calcium 9.1 (8.6-10.8) mg/dL Calcium panel 07/12/17 Range/Units 05:38 Calcium 9.1 (8.6-10.8) mg/dL Pituitary panel 07/12/17 Range/Units 05:38 Sodium 137 (136-145) mEq/L Potassium 4.7 H (3.5-4.5) mEq/L Chloride 102 (98-109) mEq/L Carbon Dioxide 29 (19-29) mEq/L BUN 27 H (8-26) mg/dL Creatinine 1.40 H (0.72-1.25) mg/dL Glucose 168 H (70-99) mg/dL Calcium 9.1 (8.6-10.8) mg/dL Adrenal panel 07/12/17 Range/Units 05:38 Sodium 137 (136-145) mEq/L Potassium 4.7 H (3.5-4.5) mEq/L Chloride 102 (98-109) mEq/L Carbon Dioxide 29 (19-29) mEq/L BUN 27 H (8-26) mg/dL Creatinine 1.40 H (0.72-1.25) mg/dL Glucose 168 H (70-99) mg/dL Calcium 9.1 (8.6-10.8) mg/dL - VTE Reasons for not Prescribing Prophylaxis: Medical contraindication Consult Discharge Plan - Plan [facility]errals: [facility] [Primary Care Provider] -
--- NOTE | 2017-07-12 09:04 | Internal Med Progress Note ---
Date of Encounter: 07/12/17 Time of Encounter: 09:04 - Assessment and plan (1) Warfarin-induced coagulopathy Current Visit: Yes Status: Acute Assessment and plan: Received Vitamin K on admission INR on admission 5.5 Improving, INR this a.m 3.1 Still having hematuria, Urology is following Will give additional Vit K po for now Will transfuse one unit RBC Patient may likel need to stop Coumadin , this is his second bleed on coumadin and a bladder pathology has to be ruled out Continue to monitor INR an HB (2) Supratherapeutic INR Current Visit: Yes Status: Acute Assessment and plan: As above (3) Type 2 diabetes mellitus Current Visit: Yes Status: Chronic Assessment and plan: A1C 6.2 09/2016 patient is on metformin at home Continue sliding scale insulin ADA diet Monitor FS ACHS Qualifiers: Diabetes mellitus complication status: with unspecified complications Diabetes mellitus shelter insulin use: unspecified shelter insulin use status Qualified Code(s): E11.8 - Type 2 diabetes mellitus with unspecified complications (4) Hypertension Current Visit: Yes Status: Chronic Assessment and plan: Controlled, continue current meds Qualifiers: Hypertension type: unspecified secondary hypertension Qualified Code(s): I15.9 - Secondary hypertension, unspecified; I15 - Secondary hypertension (5) Dyslipidemia Current Visit: Yes Status: Chronic Assessment and plan: Continue home meds (6) History of DVT (deep vein thrombosis) Current Visit: Yes Status: Chronic Assessment and plan: Hold coumadin for now (7) CAD (coronary artery disease), [place] coronary artery Current Visit: Yes Status: Chronic Assessment and plan: on ASA, continue same No CP on BB, ACEI, Lipitor, Lasix, continue same Qualifiers: [place] vs. transplanted heart: [place] heart Associated angina: without angina Qualified Code(s): I25.10 - Atherosclerotic heart disease of [place] coronary artery without angina pectoris (8) Hematuria Current Visit: Yes Status: Acute Assessment and plan: As in Warfarin induced coagulopathy Urology-Dr. Herrera consulted, input appreciatd, patient is on CBI Abdomen CT with indeterminate hypodensity in the bladder which may be hemorhagic or infectious lesion Follow urine culture Qualifiers: Hematuria type: gross Qualified Code(s): R31.0 - Gross hematuria (9) Anemia Current Visit: Yes Status: Chronic Assessment and plan: Acute on chronic, due to blood loss from hematuria Hb drop to 7.3, with reactive leukocytosis and tachycardia in a patient with ongoing hematuria and heart disease, baseline is 10 Will transfuse 1 unit RBC, continue to monitor HB Qualifiers: Anemia type: due to chronic kidney disease Chronic kidney disease stage: unspecified stage Qualified Code(s): N18.9 - Chronic kidney disease, unspecified; D63.1 - Anemia in chronic kidney disease; D63.1 - Anemia in chronic kidney disease (10) Hyperkalemia Current Visit: Yes Status: Acute Assessment and plan: K 5.0 on admission, improved to 4.7 Continue to monitor (11) Obesity (BMI 30-39.9) Current Visit: Yes Status: Chronic Assessment and plan: Lifestyle modification (12) CKD (chronic kidney disease) Current Visit: Yes Status: Chronic Assessment and plan: Cr seems to be stable from prior labs Possibly CKD III, patient may also have KALIE. His Creatinine in 09/2016 was 1.25 Renal USS is pending Cr is improving, continue to monitor Qualifiers: Chronic kidney disease stage: stage 3 (moderate) Qualified Code(s): N18.3 - Chronic kidney disease, stage 3 (moderate) (13) UTI (urinary tract infection) Current Visit: Yes Status: Suspected Assessment and plan: Suspected Patient with abnormal UA, dysuria and hematuria Continue Ceftriaxone-Day 2 Await final urine culture Qualifiers: Urinary tract infection type: acute cystitis Hematuria presence: with hematuria Qualified Code(s): N30.01 - Acute cystitis with hematuria - Subjective Interval history: 82 M with hx of DVTS on coumadin admitted for warfarin induced coagulopathy with hematuria He has a PMH of CAD, CKD, DM, Obesity He still continues to have hematuria with clots, he is now on CBI, urine bag with bloody urine He now has tachycardia and his hb dropped to 7.3 (baseline around 10). He is sitting in chair out of bed and denies new complains - Constitutional Vitals: Temp Pulse Resp BP Pulse Ox 98.3 F 993 14 117/93 96 07/12/17 07:32 07/12/17 07:32 07/12/17 07:32 07/12/17 07:32 07/12/17 07:32 General appearance: Present: cooperative, A&O X 3, pleasant, no acute distress, obese, answers questions appropriately - Head Head exam: Present: atraumatic, normocephalic - Eye Eye exam: Present: PERRL, conjuntiva pink, sclera anicteric Pupils: Present: PERRL - Neck Neck exam general surgery: Present: supple, trachea midline. Absent: lymphadenopathy - Respiratory Respiratory exam: Present: CTAB. Absent: accessory muscle use, rales, rhonchi, wheezes - Cardiovascular Cardiovascular exam: Present: RRR, +S1, +S2. Absent: diastolic murmur, gallop, rubs, systolic murmur - GI/Abdominal GI/Abdominal exam: Present: normal bowel sounds, soft, no peritoneal signs. Absent: distended, tenderness Additional comments: distended but soft - Additional comments: Meléndez draining bloody urine with minimal clots - Extremities Exam Extremities exam: Present: pedal edema (trace. chronic venous stasis changes), warm, radial pulses palpable and symmetrical. Absent: calf tenderness, cyanotic - Neurological Exam Neurological exam: Present: alert, CN II-XII intact, oriented X3, no focal deficits. Absent: pronater drift, facial droop, speech deficit - Skin Skin exam: Present: dry, intact Internal Medicine: Result - Labs CBC & Chem 7: 07/12/17 05:38 07/12/17 05:38 Labs: Short CBC 07/11/17 07/12/17 Range/Units 10:01 05:38 WBC 17.5 H (4.3-11.1) K/mcL Hgb 8.1 L 7.3 L (12.9-16.9) g/dL Hct 26.9 L 23.1 L (37.5-50.1) % Plt Count 253 (140-400) K/mcL Neutrophils # 12.1 H (1.6-8.9) K/mcL BMP 07/12/17 05:38 Sodium 137 Potassium 4.7 H Chloride 102 Carbon Dioxide 29 BUN 27 H Creatinine 1.40 H Glucose 168 H Calcium 9.1 - ABG Interpretation ABG results: PT/INR, D-dimer PT 34.0 Seconds (9.4-12.1) H 07/12/17 05:38 - VTE Reasons for not Prescribing Prophylaxis: Medical contraindication Consult Discharge Plan - Plan [facility]errals: [facility] [Primary Care Provider] -
[2017-07-12] MEDS ORDERED: 0.9 % Sodium Chloride 250 ML ONE (14:33)
[2017-07-13 03:01] LABS: Basophils % 0.2 %; Eosinophils # 0.3 K/mcL (0.0-0.6); Eosinophils % 2.1 %; Hematocrit 20.5 % (37.5-50.1); Hemoglobin 6.4 g/dL (12.9-16.9); Immature Granulocytes % 1.2 % (0-4); Lymphocytes # 2.3 K/mcL (0.6-4.6); Lymphocytes % 16.9 %; Mean Corpuscular HGB Conc 31.2 g/dL (31.6-35.5); Mean Corpuscular Hemoglobin 27.6 pg (28.0-33.3); Mean Corpuscular Volume 88.4 fL (83.0-100.0); Monocytes # 0.7 K/mcL (0.0-1.3); Monocytes % 4.7 %; Neutrophils # 10.3 K/mcL (1.6-8.9); Platelet Count 182 K/mcL (140-400); Red Blood Count 2.32 M/mcL (4.19-5.50); Red Cell Distribution Width 16.4 % (11.5-14.5); Segmented Neutrophils % 74.9 %
[2017-07-13 03:06] LABS: INR 2.3; Prothrombin Time 25.5 Seconds (9.4-12.1)
[2017-07-13 03:13] LABS: Calcium 8.8 mg/dL (8.6-10.8); Potassium 4.9 mEq/L (3.5-4.5)
[2017-07-13] MEDS: *HR* Methadone 10 MG TABLET PO SCH ×3 (06:45→21:42)
[2017-07-13] MEDS: predniSONE 1 MG TABLET PO SCH (08:12)
[2017-07-13] MEDS: Cholecalciferol (D-3) 1,000 UNIT TABLET PO SCH (08:12)
[2017-07-13] MEDS: Isosorbide MONOnitrate (24 HR) 60 MG TAB.ER.24H PO SCH (08:12)
[2017-07-13] MEDS: Sennosides/Docusate Sodium TABLET PO SCH (08:12)
[2017-07-13] MEDS: amLODIPine 5 MG TABLET PO SCH (08:12)
[2017-07-13] MEDS: Aspirin 81 MG TAB.CHEW PO SCH (08:13)
[2017-07-13] MEDS: Metoprolol XL (24 HR) Succ 50 MG TAB.ER.24H PO SCH (08:13)
[2017-07-13] MEDS: Pantoprazole 40 MG VIAL IVP SCH (08:14)
[2017-07-13] MEDS: Furosemide 40 MG TABLET PO SCH (08:14)
[2017-07-13] MEDS: Insulin LISPRO 300 UNITS/3 ML VIAL SQ SCH ×4 (08:17→21:43)
--- NOTE | 2017-07-13 09:03 | Urology Progress Note ---
Date of Encounter: 07/13/17 Time of Encounter: 08:58 - Assessment and Plan (1) Gross hematuria Current Visit: Yes Status: Acute Assessment and plan: slowly it is improving. based on my irrigation with AM I do not suspect he has significant residual clot. There is some active bleeding around the cath from his urethra indicating that he is still coagulopathic. If it is safe, consider reducing his INR to normal to help stop the bleeding. If unable to stop his Coumadin, I'll continue to manage the best I can from a urologic standpoint. I still do not feel he requires surgery as he is improving every day. The drop in hemoglobin is unlikely due continued acute hemorrhage but rather bleeding over the last week. Transfuse as necessary. We'll start oxybutynin for bladder spasms. Continue to reduce CBI as his urine clears. Progress Note Narrative: no clot retention or need for manual irrigation overnight Objective Initial Vital Signs Temp Pulse Resp BP Pulse Ox 99.7 F H 102 18 162/86 93 07/10/17 10:11 07/10/17 10:11 07/10/17 10:11 07/10/17 10:11 07/10/17 10:11 - General physical appearance Present: no distress - Additional Exam again irrigated a few small clots but nothing significant. - Labs 07/13/17 02:24 07/13/17 02:24 Diabetes panel 07/13/17 Range/Units 02:24 Sodium 137 (136-145) mEq/L Potassium 4.9 H (3.5-4.5) mEq/L Chloride 103 (98-109) mEq/L Carbon Dioxide 29 (19-29) mEq/L BUN 30 H (8-26) mg/dL Creatinine 1.78 H (0.72-1.25) mg/dL Glucose 162 H (70-99) mg/dL Calcium 8.8 (8.6-10.8) mg/dL Calcium panel 07/13/17 Range/Units 02:24 Calcium 8.8 (8.6-10.8) mg/dL Pituitary panel 07/13/17 Range/Units 02:24 Sodium 137 (136-145) mEq/L Potassium 4.9 H (3.5-4.5) mEq/L Chloride 103 (98-109) mEq/L Carbon Dioxide 29 (19-29) mEq/L BUN 30 H (8-26) mg/dL Creatinine 1.78 H (0.72-1.25) mg/dL Glucose 162 H (70-99) mg/dL Calcium 8.8 (8.6-10.8) mg/dL Adrenal panel 07/13/17 Range/Units 02:24 Sodium 137 (136-145) mEq/L Potassium 4.9 H (3.5-4.5) mEq/L Chloride 103 (98-109) mEq/L Carbon Dioxide 29 (19-29) mEq/L BUN 30 H (8-26) mg/dL Creatinine 1.78 H (0.72-1.25) mg/dL Glucose 162 H (70-99) mg/dL Calcium 8.8 (8.6-10.8) mg/dL - VTE Reasons for not Prescribing Prophylaxis: Medical contraindication Consult Discharge Plan - Plan Referrals: [facility] [Primary Care Provider] -
[2017-07-13] MEDS ORDERED: *HR* Phytonadione 5 MG TABLET PO ONE (09:16)
--- NOTE | 2017-07-13 09:18 | Internal Med Progress Note ---
Date of Encounter: 07/13/17 Time of Encounter: 09:17 - Assessment and plan (1) Warfarin-induced coagulopathy Current Visit: Yes Status: Acute Assessment and plan: Received Vitamin K on admission INR on admission 5.5 s/p vit K po X2, INR this a.m 2.3 patient continues to have hemturia, on CBI Hb drop to 6.4 this a.m, s/p 1 unit RBC WIll give 2 units RBC Will give 1 unit of FFP Will give additional Vit K po for now Patient is also having tex-urethral bleeding, Urology is following Patient may likel need to stop Coumadin , this is his second bleed on coumadin and a bladder pathology has to be ruled out Continue to monitor INR an HB (2) Supratherapeutic INR Current Visit: Yes Status: Acute Assessment and plan: As above (3) Type 2 diabetes mellitus Current Visit: Yes Status: Chronic Assessment and plan: A1C 6.2 09/2016 patient is on metformin at home Continue sliding scale insulin ADA diet Monitor FS ACHS Qualifiers: Diabetes mellitus complication status: with unspecified complications Diabetes mellitus skilled nursing insulin use: unspecified skilled nursing insulin use status Qualified Code(s): E11.8 - Type 2 diabetes mellitus with unspecified complications (4) Hypertension Current Visit: Yes Status: Chronic Assessment and plan: UnControlled, add Norvasc to current regimen Qualifiers: Hypertension type: unspecified secondary hypertension Qualified Code(s): I15.9 - Secondary hypertension, unspecified; I15 - Secondary hypertension (5) Dyslipidemia Current Visit: Yes Status: Chronic Assessment and plan: Continue home meds (6) History of DVT (deep vein thrombosis) Current Visit: Yes Status: Chronic Assessment and plan: Hold coumadin for now (7) CAD (coronary artery disease), [place] coronary artery Current Visit: Yes Status: Chronic Assessment and plan: on ASA, continue same No CP on BB, ACEI, Lipitor, continue Hold lasix Qualifiers: [place] vs. transplanted heart: [place] heart Associated angina: without angina Qualified Code(s): I25.10 - Atherosclerotic heart disease of [place] coronary artery without angina pectoris (8) Hematuria Current Visit: Yes Status: Acute Assessment and plan: As in Warfarin induced coagulopathy Urology-Dr. Herrera consulted, input appreciated, patient is on CBI Abdomen CT with indeterminate hypodensity in the bladder which may be hemorhagic or infectious lesion Qualifiers: Hematuria type: gross Qualified Code(s): R31.0 - Gross hematuria (9) Anemia Current Visit: Yes Status: Acute Assessment and plan: Acute on chronic, due to blood loss from hematuria Hb drop to 7.3, with reactive leukocytosis and tachycardia in a patient with ongoing hematuria and heart disease, baseline is 10 07/12, give one unit RBC Today Hb is 6.4, jin give 2 units RBCs, 1 unit FFP and po Vitamin K Repeat Hb after transfusion Qualifiers: Anemia type: other cause Other causes of anemia: acute posthemorrhagic Qualified Code(s): D62 - Acute posthemorrhagic anemia (10) Hyperkalemia Current Visit: Yes Status: Acute Assessment and plan: K 5.0 on admission, improving slowly Continue to monitor (11) Obesity (BMI 30-39.9) Current Visit: Yes Status: Chronic Assessment and plan: Lifestyle modification (12) CKD (chronic kidney disease) Current Visit: Yes Status: Chronic Assessment and plan: Cr seems to be stable from prior labs Possibly CKD III, patient may also have KALIE. His Creatinine in 09/2016 was 1.25 Renal USS is pending Cr is improving, continue to monitor Qualifiers: Chronic kidney disease stage: stage 3 (moderate) Qualified Code(s): N18.3 - Chronic kidney disease, stage 3 (moderate) (13) UTI (urinary tract infection) Current Visit: Yes Status: Suspected Assessment and plan: Urine growing GPC Patient with abnormal UA, dysuria and hematuria Continue Ceftriaxone-Day 3 Follow final urine culture Qualifiers: Urinary tract infection type: acute cystitis Hematuria presence: with hematuria Qualified Code(s): N30.01 - Acute cystitis with hematuria - Subjective Interval history: 82 M with hx of DVTS on coumadin admitted for warfarin induced coagulopathy with hematuria He has a PMH of CAD, CKD, DM, Obesity He still continues to have hematuria with clots, he is now on CBI, urine bag with bloody urine He is s/p 1 unit RBC Hb this a..m 6.4 INR is still therapeutic We will give additional Vit K and FFP as well as 2 units RBCs urine culture with GPC, patient is on ceftriaxone-Day 3 Patient denies new complains - Constitutional Vitals: Temp Pulse Resp BP Pulse Ox 97.8 F 80 12 161/108 96 07/13/17 07:07 07/13/17 07:07 07/13/17 07:07 07/13/17 07:07 07/13/17 07:07 General appearance: Present: cooperative, A&O X 3, pleasant, no acute distress, obese, answers questions appropriately - Head Head exam: Present: atraumatic, normocephalic - Eye Eye exam: Present: PERRL, conjuntiva pink, sclera anicteric Pupils: Present: PERRL - Neck Neck exam general surgery: Present: supple, trachea midline. Absent: lymphadenopathy - Respiratory Respiratory exam: Present: CTAB. Absent: accessory muscle use, rales, rhonchi, wheezes - Cardiovascular Cardiovascular exam: Present: RRR, +S1, +S2. Absent: diastolic murmur, gallop, rubs, systolic murmur - GI/Abdominal Additional comments: Obese, soft, not tender, BS present in all quadrants, organs not palpably enlarged - Additional comments: Meléndez draining bloody urine, no clots visible, tex-urethral bleeding with bloody spots on the floor - Extremities Exam Extremities exam: Present: pedal edema (chronic venous stasis changes), warm, radial pulses palpable and symmetrical. Absent: calf tenderness, cyanotic - Neurological Exam Neurological exam: Present: alert, CN II-XII intact, oriented X3, no focal deficits. Absent: pronater drift, facial droop, speech deficit - Skin Skin exam: Present: dry, intact Internal Medicine: Result - Labs CBC & Chem 7: 07/13/17 02:24 07/13/17 02:24 Labs: Short CBC 07/13/17 Range/Units 02:24 WBC 13.8 H (4.3-11.1) K/mcL Hgb 6.4 L (12.9-16.9) g/dL Hct 20.5 L (37.5-50.1) % Plt Count 182 (140-400) K/mcL Neutrophils # 10.3 H (1.6-8.9) K/mcL BMP 07/13/17 02:24 Sodium 137 Potassium 4.9 H Chloride 103 Carbon Dioxide 29 BUN 30 H Creatinine 1.78 H Glucose 162 H Calcium 8.8 - ABG Interpretation ABG results: PT/INR, D-dimer PT 25.5 Seconds (9.4-12.1) H 07/13/17 02:24 - VTE Reasons for not Prescribing Prophylaxis: Medical contraindication Consult Discharge Plan - Plan [facility]errals: [facility] [Primary Care Provider] -
[2017-07-13] MEDS ORDERED: 0.9 % Sodium Chloride 250 ML ONE ×3 (14:38→23:00)
[2017-07-13] MEDS: *HR* Belladonna Alkaloids/Opium 60 MG RECTAL SUPPOSITORY RC PRN (17:11)
[2017-07-14 04:35] LABS: Basophils % 0.3 %; Eosinophils # 0.4 K/mcL (0.0-0.6); Eosinophils % 2.7 %; Hematocrit 25.1 % (37.5-50.1); Immature Granulocytes % 1.4 % (0-4); Lymphocytes # 2.2 K/mcL (0.6-4.6); Lymphocytes % 16.6 %; Mean Corpuscular HGB Conc 32.3 g/dL (31.6-35.5); Mean Corpuscular Hemoglobin 28.5 pg (28.0-33.3); Mean Corpuscular Volume 88.4 fL (83.0-100.0); Mean Platelet Volume 8.5 fL (9.4-12.4); Monocytes # 0.7 K/mcL (0.0-1.3); Monocytes % 4.9 %; Platelet Count 206 K/mcL (140-400); Red Blood Count 2.84 M/mcL (4.19-5.50); Red Cell Distribution Width 15.5 % (11.5-14.5); Segmented Neutrophils % 74.1 %
[2017-07-14 04:38] LABS: INR 1.2
[2017-07-14] MEDS ORDERED: 0.9 % Sodium Chloride 250 ML ONE (04:41)
[2017-07-14 04:49] LABS: Hemoglobin 8.1 g/dL (12.9-16.9)
[2017-07-14 04:58] LABS: Calcium 9.1 mg/dL (8.6-10.8); Potassium 4.3 mEq/L (3.5-4.5)
[2017-07-14] MEDS: *HR* Methadone 10 MG TABLET PO SCH ×3 (06:35→20:12)
--- NOTE | 2017-07-14 07:18 | Urology Progress Note ---
Date of Encounter: 07/14/17 Time of Encounter: 07:14 - Assessment and Plan (1) Gross hematuria Current Visit: Yes Status: Acute Assessment and plan: the bleeding and clot issue sems to have escalated overnight. Will repeat CT pelvis to evaluate for residual clot. pt may be be actively bleeding despite normalization of INR. depending on results of CT scan, going to OR may be only option. will make patient NPO. based on history pt is not a good surgical candidate but may not have other options. Progress Note Narrative: pt with multiple episodes of clot retention again last night. CBI difficult to regulate bc urine will clear then become red. p Objective Initial Vital Signs Temp Pulse Resp BP Pulse Ox 99.7 F H 102 18 162/86 93 07/10/17 10:11 07/10/17 10:11 07/10/17 10:11 07/10/17 10:11 07/10/17 10:11 - General physical appearance Present: no distress - Additional Exam aggressively irrigated cath and returned 30 cc clot. - Labs 07/14/17 04:25 07/14/17 04:25 Diabetes panel 07/14/17 Range/Units 04:25 Sodium 137 (136-145) mEq/L Potassium 4.3 (3.5-4.5) mEq/L Chloride 102 (98-109) mEq/L Carbon Dioxide 28 (19-29) mEq/L BUN 27 H (8-26) mg/dL Creatinine 1.48 H (0.72-1.25) mg/dL Glucose 145 H (70-99) mg/dL Calcium 9.1 (8.6-10.8) mg/dL Calcium panel 07/14/17 Range/Units 04:25 Calcium 9.1 (8.6-10.8) mg/dL Pituitary panel 07/14/17 Range/Units 04:25 Sodium 137 (136-145) mEq/L Potassium 4.3 (3.5-4.5) mEq/L Chloride 102 (98-109) mEq/L Carbon Dioxide 28 (19-29) mEq/L BUN 27 H (8-26) mg/dL Creatinine 1.48 H (0.72-1.25) mg/dL Glucose 145 H (70-99) mg/dL Calcium 9.1 (8.6-10.8) mg/dL Adrenal panel 07/14/17 Range/Units 04:25 Sodium 137 (136-145) mEq/L Potassium 4.3 (3.5-4.5) mEq/L Chloride 102 (98-109) mEq/L Carbon Dioxide 28 (19-29) mEq/L BUN 27 H (8-26) mg/dL Creatinine 1.48 H (0.72-1.25) mg/dL Glucose 145 H (70-99) mg/dL Calcium 9.1 (8.6-10.8) mg/dL - VTE Reasons for not Prescribing Prophylaxis: Medical contraindication Consult Discharge Plan - Plan [facility]errals: [facility] [Primary Care Provider] -
--- NOTE | 2017-07-14 09:06 | Internal Med Progress Note ---
Date of Encounter: 07/14/17 Time of Encounter: 09:04 - Assessment and plan (1) Warfarin-induced coagulopathy Current Visit: Yes Status: Acute Assessment and plan: Received Vitamin K on admission INR on admission 5.5 s/p vit K po X2, INR now 1.2, patient continues to have hematuria with clots s/p 3 units RBCs, 1 unit FFP On CBI, Urolog is following Hemodynamically stable Patient may likely need to stop Coumadin , this is his second bleed on coumadin and a bladder pathology has to be ruled out Continue to monitor HB q6h Continue to monitor INR, PLT is WNL (2) Supratherapeutic INR Current Visit: Yes Status: Resolved Assessment and plan: As above (3) Type 2 diabetes mellitus Current Visit: Yes Status: Chronic Assessment and plan: A1C 6.2 09/2016 patient is on metformin at home Continue sliding scale insulin ADA diet Monitor FS ACHS Qualifiers: Diabetes mellitus complication status: with unspecified complications Diabetes mellitus intermediate manager insulin use: unspecified mcfp insulin use status Qualified Code(s): E11.8 - Type 2 diabetes mellitus with unspecified complications (4) Hypertension Current Visit: Yes Status: Chronic Assessment and plan: Controlled, continue current meds-Norvasc, Metoprolol Qualifiers: Hypertension type: unspecified secondary hypertension Qualified Code(s): I15.9 - Secondary hypertension, unspecified; I15 - Secondary hypertension (5) Dyslipidemia Current Visit: Yes Status: Chronic Assessment and plan: Continue home meds (6) History of DVT (deep vein thrombosis) Current Visit: Yes Status: Chronic Assessment and plan: Will not resume Coumadin upon discharge (7) CAD (coronary artery disease), [place] coronary artery Current Visit: Yes Status: Chronic Assessment and plan: on ASA, continue same No CP on BB, ACEI, Lipitor, continue Hold lasix Qualifiers: [place] vs. transplanted heart: [place] heart Associated angina: without angina Qualified Code(s): I25.10 - Atherosclerotic heart disease of [place] coronary artery without angina pectoris (8) Hematuria Current Visit: Yes Status: Acute Assessment and plan: As in Warfarin induced coagulopathy Urology-Dr. Herrera consulted, input appreciated, patient is on CBI Abdomen CT with indeterminate hypodensity in the bladder which may be hemorhagic or infectious lesion Pelvic CT done today with bladder hypodensity, likely clots Qualifiers: Hematuria type: gross Qualified Code(s): R31.0 - Gross hematuria (9) Anemia Current Visit: Yes Status: Acute Assessment and plan: Acute on chronic, due to blood loss from hematuria s/p 3 units RBCs, 1 unit FFP hb this a.m 8.1, continue to monitor q6h Transfuse for Hb <7 Qualifiers: Anemia type: other cause Other causes of anemia: acute posthemorrhagic Qualified Code(s): D62 - Acute posthemorrhagic anemia (10) Hyperkalemia Current Visit: Yes Status: Acute Assessment and plan: K 5.0 on admission, improving slowly Continue to monitor (11) Obesity (BMI 30-39.9) Current Visit: Yes Status: Chronic Assessment and plan: Lifestyle modification (12) CKD (chronic kidney disease) Current Visit: Yes Status: Chronic Assessment and plan: Cr seems to be stable from prior labs Possibly CKD III, patient may also have KALIE. His Creatinine in 09/2016 was 1.25 Renal USS is pending Cr is improving, continue to monitor Qualifiers: Chronic kidney disease stage: stage 3 (moderate) Qualified Code(s): N18.3 - Chronic kidney disease, stage 3 (moderate) (13) UTI (urinary tract infection) Current Visit: Yes Status: Suspected Assessment and plan: Urine growing GPC Patient with abnormal UA, dysuria and hematuria Continue Ceftriaxone-Day 4 Follow final urine culture Qualifiers: Urinary tract infection type: acute cystitis Hematuria presence: with hematuria Qualified Code(s): N30.01 - Acute cystitis with hematuria - Subjective Interval history: 82 M with hx of DVTS on coumadin admitted for warfarin induced coagulopathy with hematuria He has a PMH of CAD, CKD, DM, Obesity He still continues to have hematuria with clots, he is now on CBI, urine bag with bloody urine He is s/p 3 units RBCs, 1 unit FFP, Vit K 15mg PO He also had tex-urethral bleeding which seems to have resolved INR today 1.2 Per RN, Patient continued to have multiple episodes of clot retention despite CBI Pelvis CT ordered by Urology-bladder has blood clots per imaging, otherwise unremarkable study Patient may need surgery as he continues to bleed despite INR being normal, Dobson with blood clots noted Urine culture with GPC, patient is on ceftriaxone-Day 4 - Constitutional Vitals: Temp Pulse Resp BP Pulse Ox 98 F 92 16 136/84 99 07/14/17 07:53 07/14/17 07:53 07/14/17 07:53 07/14/17 07:53 07/14/17 07:53 General appearance: Present: cooperative, A&O X 3, pleasant, no acute distress, obese, answers questions appropriately - Head Head exam: Present: atraumatic, normocephalic - Eye Eye exam: Present: PERRL, conjuntiva pink, sclera anicteric Pupils: Present: PERRL - Neck Neck exam general surgery: Present: supple, trachea midline. Absent: lymphadenopathy - Respiratory Respiratory exam: Present: CTAB. Absent: accessory muscle use, rales, rhonchi, wheezes - Cardiovascular Cardiovascular exam: Present: RRR, +S1, +S2. Absent: diastolic murmur, gallop, rubs, systolic murmur - GI/Abdominal GI/Abdominal exam: Present: normal bowel sounds, soft, no peritoneal signs. Absent: distended, tenderness - Additional comments: dobson with clots of blood mixed with urine - Extremities Exam Extremities exam: Present: warm, radial pulses palpable and symmetrical. Absent : calf tenderness, cyanotic, pedal edema - Neurological Exam Neurological exam: Present: alert, CN II-XII intact, oriented X3, no focal deficits. Absent: pronater drift, facial droop, speech deficit - Skin Skin exam: Present: dry, intact Internal Medicine: Result - Labs CBC & Chem 7: 07/14/17 12:49 07/14/17 04:25 Labs: Short CBC 07/14/17 Range/Units 04:25 WBC 13.4 H (4.3-11.1) K/mcL Hgb 8.1 L D (12.9-16.9) g/dL Hct 25.1 L (37.5-50.1) % Plt Count 206 (140-400) K/mcL Neutrophils # 10.0 H (1.6-8.9) K/mcL BMP 07/14/17 04:25 Sodium 137 Potassium 4.3 Chloride 102 Carbon Dioxide 28 BUN 27 H Creatinine 1.48 H Glucose 145 H Calcium 9.1 - ABG Interpretation ABG results: PT/INR, D-dimer PT 13.0 Seconds (9.4-12.1) H 07/14/17 04:25 - VTE Reasons for not Prescribing Prophylaxis: Medical contraindication Consult Discharge Plan - Plan [facility]errals: [facility] [Primary Care Provider] -
[2017-07-14] MEDS: Insulin LISPRO 300 UNITS/3 ML VIAL SQ SCH ×4 (10:11→20:48)
[2017-07-14] MEDS: Metoprolol XL (24 HR) Succ 50 MG TAB.ER.24H PO SCH (10:19)
[2017-07-14] MEDS: Isosorbide MONOnitrate (24 HR) 60 MG TAB.ER.24H PO SCH (10:20)
[2017-07-14] MEDS: amLODIPine 5 MG TABLET PO SCH (10:20)
[2017-07-14] MEDS: Cholecalciferol (D-3) 1,000 UNIT TABLET PO SCH (10:20)
[2017-07-14] MEDS: Pantoprazole 40 MG VIAL IVP SCH (10:20)
[2017-07-14] MEDS: predniSONE 1 MG TABLET PO SCH (10:20)
[2017-07-14] MEDS: Sennosides/Docusate Sodium TABLET PO SCH (10:20)
[2017-07-14 13:07] LABS: Hematocrit 25.3 % (37.5-50.1); Hemoglobin 8.1 g/dL (12.9-16.9)
--- NOTE | 2017-07-14 15:21 | Anesthesia Evaluation PreOp ---
Date of Encounter: 07/14/17 Time of Encounter: 16:17 - Past History Planned Operation: Cystoscopy, Clot Evacuation and Fulgeration Cardiac History: HTN, Hyperlipidemia, Other (CAD) Pulmonary History: Asthma (on home O@) ENROLLMENT CONSULTANT History: Other (dementia ?) Other Medical History: Renal (CKD), Diabetes Type II, GERD, Other (anxiety/ deprssion, H/O DVT, fibromyalgia, obeisty BMI=39.6) Anesthesia History: No Prior Anesthetic Complications, Past Anesthesia Alcohol Use: none Drug use: none Medications and Allergies Amlodipine Besylate 10 mg PO DAILY 09/27/16 [History] Aspirin 81 mg PO DAILY 09/27/16 [History] Memantine [Namenda] 5 mg PO HS 09/27/16 [History] Methadone 60 mg PO Q8HR 09/27/16 [History] Nystatin POWDER [Nystop] 1 appl TP BID 09/27/16 [History] Acetaminophen [Tylenol] 650 mg PO Q6HR PRN #0 tablet 09/28/16 [Rx] Glucagon, Human Recombinant [Glucagen] 1 mg IM ONCE PRN #0 vial 09/28/16 [Rx] HYDROmorphone (PF) [Dilaudid] 0.5 mg IVP Q2H PRN #0 syringe 09/28/16 [Rx] LORazepam [Ativan] 0.5 mg PO HS PRN #0 tablet 09/28/16 [Rx] Ondansetron [Zofran] 4 mg IVP Q6HR PRN #0 vial 09/28/16 [Rx] Pantoprazole [Protonix] 40 mg IVP DAILY vial 09/28/16 [Rx] Atorvastatin Calcium [Lipitor] 80 mg PO HS 07/10/17 [History] Calcium Carbonate [Calcium] 600 mg PO BID 07/10/17 [History] Cholecalciferol (D-3) [Vitamin D] 2,000 unit PO DAILY 07/10/17 [History] Cyclobenzaprine [Flexeril] 10 mg PO TID PRN 07/10/17 [History] Ferrous Sulfate [Iron] 325 mg PO TID 07/10/17 [History] Furosemide [Lasix] 40 mg PO BID 07/10/17 [History] Isosorbide MONOnitrate (24 HR) [Imdur] 60 mg PO DAILY 07/10/17 [History] Lisinopril [Zestril] 10 mg PO DAILY 07/10/17 [History] Metoprolol Succinate 50 mg PO DAILY 07/10/17 [History] Nitroglycerin [Nitrostat] 0.4 mg SL Q5M PRN 07/10/17 [History] Sennosides/Docusate Sodium [Senna-Docusate Sodium Tablet] 2 tab PO DAILY [History] Sertraline [Zoloft] 50 mg PO DAILY 07/10/17 [History] Warfarin [Coumadin] 7.5 mg PO DAILY 07/10/17 [History] metFORMIN [Glucophage] 500 mg PO BIDWM 07/10/17 [History] predniSONE [PredniSONE] 3 mg PO DAILY 07/10/17 [History] 3 Allergy/AdvReac Type Severity Reaction Status Date / Time colchicine Allergy Difficulty Verified 07/10/17 10:20 Breathing gabapentin Allergy Difficulty Verified 07/10/17 10:20 Breathing griseofulvin Allergy Difficulty Verified 07/10/17 10:20 Breathing methocarbamol Allergy Difficulty Verified 07/10/17 10:20 Breathing pregabalin [From Lyrica] Allergy Difficulty Verified 07/10/17 10:20 Breathing sulfamethoxazole Allergy Difficulty Verified 07/10/17 10:20 [From Bactrim] Breathing trimethoprim [From Bactrim] Allergy Difficulty Verified 07/10/17 10:20 Breathing acarbose AdvReac Difficulty Verified 07/10/17 10:20 Breathing IV CONTRAST Allergy Difficulty Uncoded 09/27/16 16:48 Breathing - Meds/Allergy Pre-op Review Medications Reviewed: Yes Allergies Reviewed: Yes Beta Blockers on Current Med List: Yes If Beta Blockers taken, Date/Time (Last Dose taken): 07/14/2017 at 1019 Anesthesia Results - Labs 07/14/17 12:49 07/14/17 04:25 - Imaging EKG: report reviewed (09/27/2016 Sinus tachycardia with PACs Intraventricular conduction delay) Additional studies: 09/24/2012 LEFT HEART CATH Impressions: Minimal atherosclerotic coronary artery disease. The left ventricle is normal and has normal contractility EF 60% Recommendations: Optimal medical therapy of patient's disease. Lipid management. Will give Lasix as has SOB and edema today. Has not taken his home lasix lately. Aggressive risk factor modification. 09/18/2012 Echo Impressions: * Technically difficult study due to poor echocardiographic windows. Aside from LV function, much of it was uninterpretable. * LVEF 65% * Normal left ventricular size and systolic function. * There is evidence of mild diastolic dysfunction of the left ventricle. Anesthesia Exam Vital Signs/O2 Sat/Glucose, Most Recent Temp Pulse Resp BP Pulse Ox 97.9 F 74 16 119/65 95 07/14/17 11:59 07/14/17 11:59 07/14/17 11:59 07/14/17 11:59 07/14/17 11:59 Blood Glucose* 199 Height: 6'/1.83 m Weight: 292 lbs/132.45 kg NPO (# of Hours): 8 - HEENT Pupil (Motor): EOMI Mallampati: III Teeth: Edentulous Oral Opening: Greater than 3 - ENROLLMENT CONSULTANT LOC: Oriented ENROLLMENT CONSULTANT Motor: Normal RUE, Normal LUE, Normal RLE, Normal LLE, Normal Face ENROLLMENT CONSULTANT Sensory: Normal: RUE, LUE, Face, Deficit: RLE, LLE - Cardiac Rhythm: Regular Murmur: None - Pulmonary Breath Sounds: bilateral Clear Respiratory Effort: Symmetrical Anesthesia Assess/Plan ASA Score: 4 Modified [place] Scale for Level of Consciousness: Cooperative, oriented, and tranquil Anesthetic Plan: General Monitoring Plan: Standard Monitors Recovery Plan: PACU
[2017-07-14] MEDS ORDERED: Dexamethasone 4 MG/ML VIAL ONE (16:33)
[2017-07-14] MEDS ORDERED: *HR* Rocuronium Bromide 50 MG/5 ML VIAL ONE (16:33)
[2017-07-14] MEDS ORDERED: Ondansetron 4 MG/2 ML VIAL ONE (16:33)
[2017-07-14] MEDS ORDERED: Lidocaine -MPF 2% 2 ML VIAL ONE (16:33)
[2017-07-14] MEDS ORDERED: *HR* FentaNYL (PF) 100 MCG/2 ML VIAL ONE (16:34)
[2017-07-14] MEDS ORDERED: *HR* Propofol 200 MG/20 ML VIAL IVP ONE (16:34)
--- NOTE | 2017-07-14 16:34 | Operative Note ---
Date of procedure: 07/14/17 Pre-op diagnosis: clot retention Post-op diagnosis: same Procedure: cystoscopy with jayjay evacuation fulguration of bleeding in prostate Anesthesia: GETA Surgeon: Darci Herrera Estimated blood loss (cc): 50 Specimen: none Condition: stable Disposition: PACU Procedure in Detail: Patient was taken back to the operating room positioned supine on the operative table. Existing hematuria catheter was removed which had significant hematuria. Anesthesia was applied without complication. He was moved into dorsal lithotomy. 22 Bulgarian resectoscope was inserted with the visual obturator. I initially encountered a large volume of clot within the bladder. I used the Silvio syringe to suction the majority of the clot out. Any remaining clot was able to manually retrieve using the loop from the resectoscope. I was not able to examine the dome of the bladder because of its abnormal position within the pannus of the abdomen. Within the trigone and lateral sanchez it did not visualize any obvious malignancy. He had significant friable tissue within the prostatic fossa and what appeared to be some active bleeding. On a setting of 80 coag I did fulgurate the entire prostate until the bleeding was minimal. I saw no further clots in the bladder and there was fairly decent hemostasis in the prostatic urethra. 22 Bulgarian hematuria catheter was placed at the end of the case which returned clear urine on light CBI.
[2017-07-14] MEDS ORDERED: Ondansetron 4 MG/2 ML VIAL IVP ONE (17:13)
[2017-07-14] MEDS ORDERED: *HR* Labetalol 20 MG/4 ML SYRINGE IVP PRN (17:13)
[2017-07-14] MEDS ORDERED: *HR* HYDROmorphone (PF) 1 MG/ML SYRINGE IVP PRN (17:13)
--- NOTE | 2017-07-14 17:59 | Anesthesia Evaluation Post Op ---
Date of Encounter: 07/14/17 Time of Encounter: 18:00 - Vital Signs Vital Signs: Vital Signs - Last 8 Hours Temp Pulse Resp BP Pulse Ox 07/14/17 17:52 97.4 F L 80 17 142/89 94 07/14/17 17:42 84 18 157/94 100 07/14/17 17:32 97.0 F L 101 20 147/87 100 07/14/17 15:55 98.1 F 98 16 156/80 95 07/14/17 11:59 97.9 F 74 16 119/65 95 Intake and Output 07/14/17 07/14/17 07/14/17 07:59 15:59 23:59 Intake Total 350 / 350 0 / 0 Output Total 900 / 900 200 / 200 1050 / 1050 Balance -550 / -550 -200 / -200 -1050 / -1050 Intake: Oral 0 / 0 Blood Product 350 / 350 Rbcs Leuko Poor As-1 Unit 350 / 350 [id number] Output: Urine 900 / 900 200 / 200 Estimated Blood Loss 50 / 50 Urine Amount (Catheter) 1000 / 1000 Other: Intake, CBI Fluid 5,400 2,700 Meal Breakfast Percent of Meal Consumed 0% Output, CBI Fluid 5,550 2,700 Blood Glucose* 152 199 190 - Lungs Lungs: Clear Ascult./Percussion - Airway Airway: Non-obstructed - Cardiovascular Regular Rate, Baseline Rhythm - Mental Status Mental Status: Alert & Oriented, Answers Appropriately - Pain Pain Scale: 0 Pain Scale used: Numeric (1 - 10) - Nausea Vomiting Nausea Vomiting: Not Present - Hydration Hydration: Tolerates oral liquids - Discharge PostOp Status: Transfer Patient to floor
[2017-07-14] MEDS ORDERED: Nitroglycerin 0.4 MG TAB.SUBL SL PRN (18:44)
[2017-07-14] MEDS ORDERED: Acetaminophen 325 MG TABLET PO PRN (18:44)
[2017-07-14] MEDS ORDERED: Dextrose Gel 15 GM PO PRN ×2 (18:44)
[2017-07-14] MEDS ORDERED: Ondansetron 4 MG/2 ML VIAL IVP PRN (18:44)
[2017-07-14] MEDS ORDERED: Temazepam 15 MG CAPSULE PO PRN (18:44)
[2017-07-14] MEDS ORDERED: *HR* Dextrose 50 % in Water (Syg) 50 ML SYRINGE IVP PRN (18:44)
[2017-07-14] MEDS ORDERED: D5% in Water 1,000 ML IVC PRN (18:44)
[2017-07-14] MEDS ORDERED: Naloxone 0.4 MG/ML INJ IVP PRN (18:44)
[2017-07-14] MEDS ORDERED: *HR* LORazepam 0.5 MG TABLET PO PRN (21:00)
[2017-07-15] MEDS ORDERED: Lactulose Oral Soln 20 GM/30 ML UDC PO ONE (00:12)
[2017-07-15] MEDS: *HR* Methadone 10 MG TABLET PO SCH ×3 (04:45→20:18)
[2017-07-15 06:54] LABS: Basophils % 0.3 %; Eosinophils % 0.2 %; Hematocrit 21.9 % (37.5-50.1); Hemoglobin 6.8 g/dL (12.9-16.9); Immature Granulocytes % 1.2 % (0-4); Lymphocytes # 1.5 K/mcL (0.6-4.6); Lymphocytes % 14.7 %; Mean Corpuscular HGB Conc 31.1 g/dL (31.6-35.5); Mean Corpuscular Hemoglobin 28.1 pg (28.0-33.3); Mean Corpuscular Volume 90.5 fL (83.0-100.0); Mean Platelet Volume 8.8 fL (9.4-12.4); Monocytes # 0.3 K/mcL (0.0-1.3); Monocytes % 3.1 %; Neutrophils # 8.1 K/mcL (1.6-8.9); Platelet Count 220 K/mcL (140-400); Red Blood Count 2.42 M/mcL (4.19-5.50); Red Cell Distribution Width 15.9 % (11.5-14.5); Segmented Neutrophils % 80.5 %
[2017-07-15 07:05] LABS: Calcium 8.8 mg/dL (8.6-10.8); Potassium 4.9 mEq/L (3.5-4.5)
--- NOTE | 2017-07-15 07:06 | Urology Progress Note ---
Date of Encounter: 07/15/17 Time of Encounter: 07:04 - Assessment and Plan (1) Gross hematuria Current Visit: Yes Status: Resolved Assessment and plan: pt clear after clot evacuation and fulguration. ok to turn off CBI. keep cath in place. start process to discharge patient soon. will likely discharge with cath a few days. Progress Note Narrative: pt asleep. no acute events overnight after surgery Objective Initial Vital Signs Temp Pulse Resp BP Pulse Ox 99.7 F H 102 18 162/86 93 07/10/17 10:11 07/10/17 10:11 07/10/17 10:11 07/10/17 10:11 07/10/17 10:11 - General physical appearance Present: no distress - Additional Exam urine clear on no CBI - Labs 07/14/17 12:49 07/14/17 04:25 - VTE Reasons for not Prescribing Prophylaxis: Medical contraindication Consult Discharge Plan - Plan [facility]errals: [facility] [Primary Care Provider] -
[2017-07-15] MEDS: Sennosides/Docusate Sodium TABLET PO SCH (08:09)
[2017-07-15] MEDS: Cholecalciferol (D-3) 1,000 UNIT TABLET PO SCH (08:09)
[2017-07-15] MEDS: Isosorbide MONOnitrate (24 HR) 60 MG TAB.ER.24H PO SCH (08:10)
[2017-07-15] MEDS: Metoprolol XL (24 HR) Succ 50 MG TAB.ER.24H PO SCH (08:10)
[2017-07-15] MEDS: amLODIPine 5 MG TABLET PO SCH (08:11)
[2017-07-15] MEDS: Pantoprazole 40 MG VIAL IVP SCH (08:12)
[2017-07-15] MEDS: Insulin LISPRO 300 UNITS/3 ML VIAL SQ SCH ×4 (08:13→21:16)
[2017-07-15] MEDS: predniSONE 1 MG TABLET PO SCH (08:16)
[2017-07-15] MEDS: *HR* Belladonna Alkaloids/Opium 60 MG RECTAL SUPPOSITORY RC PRN ×2 (08:33→20:18)
--- NOTE | 2017-07-15 09:08 | Internal Med Progress Note ---
<Jude Purdy - Last Filed: 07/15/17 16:15> Date of Encounter: 07/15/17 Time of Encounter: 09:06 - Assessment and plan (1) Warfarin-induced coagulopathy Current Visit: Yes Status: Acute Assessment and plan: INR on admission 5.5. S/p vit K po X2, INR now 1.2, patient continues to have hematuria. S/p 3 units RBCs, 1 unit FFP. Hemodynamically stable Plan: Hgb 6.8 this AM after urological procedure yesterday - transfuse 2 U RBCs On CBI, Urolog is following Patient may likely need to stop Coumadin, this is his second bleed on coumadin and a bladder pathology has to be ruled out Continue to monitor Hgb. INR, PLT is WNL (2) Supratherapeutic INR Current Visit: Yes Status: Resolved Assessment and plan: As above. INR now WNL - 1.2 (3) Anemia Current Visit: Yes Status: Acute Assessment and plan: Acute on chronic, due to blood loss from hematuria. S/P 3 units RBCs, 1 unit FFP Hgb this AM 6.8 (drop from 8.1 yesterday) - likely related to urological procedure yesterday Plan: Transfuse 2 U RBCs Transfuse for Hb <7 Continue to monitor Hgb Qualifiers: Anemia type: other cause Other causes of anemia: acute posthemorrhagic Qualified Code(s): D62 - Acute posthemorrhagic anemia (4) Hematuria Current Visit: Yes Status: Acute Assessment and plan: As in Warfarin induced coagulopathy. S/P cystoscopy and fulguration of bleeding Abdomen CT with indeterminate hypodensity in the bladder which may be hemorhagic or infectious lesion Pelvic CT done today with bladder hypodensity, likely clots Plan: Urology consulted - appreciate recommendations Continue dobson cath Qualifiers: Hematuria type: gross Qualified Code(s): R31.0 - Gross hematuria (5) Type 2 diabetes mellitus Current Visit: Yes Status: Chronic Assessment and plan: A1C 6.2 09/2016. 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 insulin use status Qualified Code(s): E11.8 - Type 2 diabetes mellitus with unspecified complications (6) Hypertension Current Visit: Yes Status: Chronic Assessment and plan: Controlled, continue current meds - Norvasc, Metoprolol Qualifiers: Hypertension type: unspecified secondary hypertension Qualified Code(s): I15.9 - Secondary hypertension, unspecified; I15 - Secondary hypertension (7) Dyslipidemia Current Visit: Yes Status: Chronic Assessment and plan: Continue home meds (8) History of DVT (deep vein thrombosis) Current Visit: Yes Status: Chronic Assessment and plan: DVT was several years ago, happened after a fall. No history of A. fib or clotting disorders. Will not resume Coumadin upon discharge (9) CAD (coronary artery disease), [place] coronary artery Current Visit: Yes Status: Chronic Assessment and plan: No CP. On ASA, BB, ACEI, Lipitor, continue Hold lasix Qualifiers: [place] vs. transplanted heart: [place] heart Associated angina: without angina Qualified Code(s): I25.10 - Atherosclerotic heart disease of [place] coronary artery without angina pectoris (10) Hyperkalemia Current Visit: Yes Status: Acute Assessment and plan: K 5.0 on admission, improving slowly - currently 4.9 Continue to monitor (11) CKD (chronic kidney disease) Current Visit: Yes Status: Chronic Assessment and plan: Cr seems to be stable from prior labs. Possibly CKD III, patient may also have KALIE. His Creatinine in 09/2016 was 1.25 Plan: Renal USS is pending Cr is improving, continue to monitor Qualifiers: Chronic kidney disease stage: stage 3 (moderate) Qualified Code(s): N18.3 - Chronic kidney disease, stage 3 (moderate) (12) UTI (urinary tract infection) Current Visit: Yes Status: Suspected Assessment and plan: Final growth Staph epidermidis - complicated UTI in male pt and s/p urological procedure Patient with abnormal UA, dysuria and hematuria Plan: Received 4 days of Ceftriaxone Consult ID for further antibiotic recommendations Qualifiers: Urinary tract infection type: acute cystitis Hematuria presence: with hematuria Qualified Code(s): N30.01 - Acute cystitis with hematuria - Subjective Interval history: Pt doing well. Reports some lower abdominal tenderness and bladder spasms with CBI, but feels much better after his surgery yesterday. Still having some red- tinged urine in dobson bag. Reports some dizziness upon standing. Denies chills, fatigue, chest pain, dyspnea, N/V/D/C, or leg edema/pain. - Constitutional Vitals: Temp Pulse Resp BP Pulse Ox 98.0 F 89 14 130/35 99 07/15/17 07:07 07/15/17 07:07 07/15/17 07:07 07/15/17 07:07 07/15/17 07:07 General appearance: Present: cooperative, A&O X 3, no acute distress, obese, answers questions appropriately - Head Head exam: Present: atraumatic, normocephalic - Eye Eye exam: Present: conjuntiva pink, sclera anicteric - Neck Neck exam general surgery: Present: supple, trachea midline - Respiratory Respiratory exam: Present: CTAB. Absent: rales, rhonchi, wheezes - Cardiovascular Cardiovascular exam: Present: RRR, +S1, +S2. Absent: diastolic murmur, systolic murmur - GI/Abdominal GI/Abdominal exam: Present: normal bowel sounds, soft, no peritoneal signs. Absent: distended, tenderness - Additional comments: Dobson with red-tinged urine, no overt clots - Extremities Exam Extremities exam: Present: warm, radial pulses palpable and symmetrical. Absent : calf tenderness, pedal edema - Neurological Exam Neurological exam: Present: CN II-XII intact, oriented X3, no focal deficits - Skin Skin exam: Present: dry, intact Internal Medicine: Result - Labs CBC & Chem 7: 07/15/17 05:42 07/15/17 05:42 Labs: Short CBC 07/14/17 07/15/17 Range/Units 12:49 05:42 WBC 10.1 (4.3-11.1) K/mcL Hgb 8.1 L 6.8 L (12.9-16.9) g/dL Hct 25.3 L 21.9 L (37.5-50.1) % Plt Count 220 (140-400) K/mcL Neutrophils # 8.1 (1.6-8.9) K/mcL BMP 07/15/17 05:42 Sodium 140 Potassium 4.9 H Chloride 105 Carbon Dioxide 28 BUN 24 Creatinine 1.40 H Glucose 162 H Calcium 8.8 - ABG Interpretation ABG results: PT/INR, D-dimer PT 13.0 Seconds (9.4-12.1) H 07/14/17 04:25 - Impressions Impressions Pelvis CT 07/14/17 08:00 IMPRESSION: Mixed density and air within the bladder. Differential diagnosis would include blood product or infection. D/ / Mt Adkins MD / Mt Adkins MD Interpreting Provider: Mt Adkins MD - VTE Reasons for not Prescribing Prophylaxis: Medical contraindication Consult Discharge Plan - Plan [facility]errals: [facility] [Primary Care Provider[facility] - <Noel Ang P - Last Filed: 07/15/17 18:04> Date of Encounter: 07/15/17 - Constitutional Vitals: Temp Pulse Resp BP Pulse Ox 98.7 F 68 18 138/87 99 07/15/17 16:46 07/15/17 16:46 07/15/17 16:46 07/15/17 16:46 07/15/17 16:46 Internal Medicine: Result - Labs CBC & Chem 7: 07/15/17 05:42 07/15/17 05:42 Labs: Short CBC 07/15/17 Range/Units 05:42 WBC 10.1 (4.3-11.1) K/mcL Hgb 6.8 L (12.9-16.9) g/dL Hct 21.9 L (37.5-50.1) % Plt Count 220 (140-400) K/mcL Neutrophils # 8.1 (1.6-8.9) K/mcL BMP 07/15/17 05:42 Sodium 140 Potassium 4.9 H Chloride 105 Carbon Dioxide 28 BUN 24 Creatinine 1.40 H Glucose 162 H Calcium 8.8 - ABG Interpretation ABG results: PT/INR, D-dimer PT 13.0 Seconds (9.4-12.1) H 07/14/17 04:25 - Attending Attestation I examined this patient and my medical decision-making was reviewed with the Resident Physician. I agree with the documented findings, disposition and treatment plan as described except to the extent set forth below.
[2017-07-15] MEDS ORDERED: 0.9 % Sodium Chloride 500 ML ONE ×2 (13:35→16:57)
[2017-07-15 18:07] LABS: Hematocrit 26.8 % (37.5-50.1)
[2017-07-15 18:08] LABS: Hemoglobin 8.6 g/dL (12.9-16.9)
[2017-07-15 22:41] LABS: Hemoglobin 9.2 g/dL (12.9-16.9)
[2017-07-16] MEDS ORDERED: Lactulose Oral Soln 20 GM/30 ML UDC PO PRN (01:12)
[2017-07-16] MEDS: *HR* Methadone 10 MG TABLET PO SCH ×2 (04:01→12:30)
[2017-07-16 05:22] LABS: Basophils # 0.1 K/mcL (0.0-0.2); Basophils % 0.5 %; Eosinophils # 0.5 K/mcL (0.0-0.6); Hematocrit 27.7 % (37.5-50.1); Immature Granulocytes % 1.2 % (0-4); Lymphocytes # 3.4 K/mcL (0.6-4.6); Lymphocytes % 22.3 %; Mean Corpuscular HGB Conc 32.5 g/dL (31.6-35.5); Mean Corpuscular Hemoglobin 28.5 pg (28.0-33.3); Mean Corpuscular Volume 87.7 fL (83.0-100.0); Mean Platelet Volume 8.9 fL (9.4-12.4); Monocytes % 6.4 %; Nucleated Red Blood Cells 0.1 /100 WBC (0); Platelet Count 234 K/mcL (140-400); Red Blood Count 3.16 M/mcL (4.19-5.50); Red Cell Distribution Width 16.3 % (11.5-14.5); Segmented Neutrophils % 66.6 %
[2017-07-16 05:24] LABS: Neutrophils # 10.3 K/mcL (1.6-8.9)
[2017-07-16 05:27] LABS: Calcium 9.1 mg/dL (8.6-10.8); Potassium 4.6 mEq/L (3.5-4.5)
[2017-07-16] MEDS: Insulin LISPRO 300 UNITS/3 ML VIAL SQ SCH ×3 (08:21→17:32)
[2017-07-16] MEDS: Pantoprazole 40 MG VIAL IVP SCH (08:21)
[2017-07-16] MEDS: amLODIPine 5 MG TABLET PO SCH (08:22)
[2017-07-16] MEDS: Sennosides/Docusate Sodium TABLET PO SCH (08:22)
[2017-07-16] MEDS: Cholecalciferol (D-3) 1,000 UNIT TABLET PO SCH (08:22)
[2017-07-16] MEDS: Isosorbide MONOnitrate (24 HR) 60 MG TAB.ER.24H PO SCH (08:22)
[2017-07-16] MEDS: predniSONE 1 MG TABLET PO SCH (08:23)
[2017-07-16] MEDS: Metoprolol XL (24 HR) Succ 50 MG TAB.ER.24H PO SCH (08:23)
[2017-07-16] MEDS: *HR* Belladonna Alkaloids/Opium 60 MG RECTAL SUPPOSITORY RC PRN (08:23)
--- NOTE | 2017-07-16 10:43 | Internal Med Progress Note ---
<Jude Purdy - Last Filed: 07/16/17 10:40> Date of Encounter: 07/16/17 Time of Encounter: 10:40 - Assessment and plan (1) Warfarin-induced coagulopathy Current Visit: Yes Status: Acute Assessment and plan: INR on admission 5.5. S/p vit K po X2, INR now 1.2, patient continues to have mild hematuria. S/p 5 units RBCs, 1 unit FFP. Hemodynamically stable Plan: Hgb 9.0 this AM after transfusion yesterday Urology following - stopped CBI, appreciate instructions on dobson Patient will likely need to stop Coumadin, this is his second bleed on coumadin and a bladder pathology has to be ruled out Continue to monitor Hgb. INR, PLT is WNL (2) UTI (urinary tract infection) Current Visit: Yes Status: Suspected Assessment and plan: Final growth Staph epidermidis - complicated UTI in male pt and s/p urological procedure Patient with abnormal UA, dysuria, and hematuria WBC increased today - 15.3 Plan: Received 5 days of Ceftriaxone Consult ID for further antibiotic recommendations Qualifiers: Urinary tract infection type: acute cystitis Hematuria presence: with hematuria Qualified Code(s): N30.01 - Acute cystitis with hematuria (3) Supratherapeutic INR Current Visit: Yes Status: Resolved Assessment and plan: As above. INR now WNL - 1.2 (4) Anemia Current Visit: Yes Status: Acute Assessment and plan: Acute on chronic, due to blood loss from hematuria. S/P 5 units RBCs, 1 unit FFP Hgb this AM 9.0 Plan: Transfuse for Hb <7 Continue to monitor Hgb Qualifiers: Anemia type: other cause Other causes of anemia: acute posthemorrhagic Qualified Code(s): D62 - Acute posthemorrhagic anemia (5) Hematuria Current Visit: Yes Status: Acute Assessment and plan: As in Warfarin induced coagulopathy. S/P cystoscopy and fulguration of bleeding Abdomen CT with indeterminate hypodensity in the bladder which may be hemorhagic or infectious lesion Pelvic CT done today with bladder hypodensity, likely clots Improving today, no clots noted Plan: Urology consulted - appreciate recommendations Continue dobson cath Qualifiers: Hematuria type: gross Qualified Code(s): R31.0 - Gross hematuria (6) Type 2 diabetes mellitus Current Visit: Yes Status: Chronic Assessment and plan: A1C 6.2 09/2016. 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 [facility] insulin use status Qualified Code(s): E11.8 - Type 2 diabetes mellitus with unspecified complications (7) Hypertension Current Visit: Yes Status: Chronic Assessment and plan: Controlled, continue current meds - Norvasc, Metoprolol Qualifiers: Hypertension type: unspecified secondary hypertension Qualified Code(s): I15.9 - Secondary hypertension, unspecified; I15 - Secondary hypertension (8) Dyslipidemia Current Visit: Yes Status: Chronic Assessment and plan: Continue home meds (9) History of DVT (deep vein thrombosis) Current Visit: Yes Status: Chronic Assessment and plan: DVT was several years ago, happened after a fall. No history of A. fib or clotting disorders. Will not resume Coumadin upon discharge (10) CAD (coronary artery disease), [place] coronary artery Current Visit: Yes Status: Chronic Assessment and plan: No CP. On ASA, BB, ACEI, Lipitor, continue Hold lasix Qualifiers: [place] vs. transplanted heart: [place] heart Associated angina: without angina Qualified Code(s): I25.10 - Atherosclerotic heart disease of [place] coronary artery without angina pectoris (11) Hyperkalemia Current Visit: Yes Status: Acute Assessment and plan: K 5.0 on admission, improving slowly - currently 4.6 Continue to monitor (12) CKD (chronic kidney disease) Current Visit: Yes Status: Chronic Assessment and plan: Cr seems to be stable from prior labs. Possibly CKD III, patient may also have KALIE. His Creatinine in 09/2016 was 1.25 Cr today 1.52, GFR 44 Plan: Renal USS is pending Cr is improving, continue to monitor Qualifiers: Chronic kidney disease stage: stage 3 (moderate) Qualified Code(s): N18.3 - Chronic kidney disease, stage 3 (moderate) - Subjective Interval history: Pt doing well. Reports no abdominal tenderness or spasms. Still having some red- tinged urine in dobson bag, but improving. Denies dizziness, chills, fatigue, chest pain, dyspnea, N/V/D/C, or leg edema/pain. - Constitutional Vitals: Temp Pulse Resp BP Pulse Ox 98.2 F 59 16 152/76 97 07/16/17 08:15 07/16/17 08:15 07/16/17 08:15 07/16/17 08:15 07/16/17 08:15 General appearance: Present: cooperative, A&O X 3, no acute distress, obese, answers questions appropriately - Head Head exam: Present: atraumatic, normocephalic - ENT ENT exam: Present: mucous membranes moist - Respiratory Respiratory exam: Present: CTAB. Absent: accessory muscle use, rales, rhonchi, wheezes - Cardiovascular Cardiovascular exam: Present: RRR, +S1, +S2. Absent: diastolic murmur, systolic murmur - GI/Abdominal GI/Abdominal exam: Present: normal bowel sounds, soft, no peritoneal signs. Absent: distended, tenderness - Extremities Exam Extremities exam: Present: pedal edema, warm, radial pulses palpable and symmetrical. Absent: calf tenderness, cyanotic - Neurological Exam Neurological exam: Present: CN II-XII intact, oriented X3, no focal deficits. Absent: facial droop, speech deficit - Skin Skin exam: Present: dry, intact Internal Medicine: Result - Labs CBC & Chem 7: 07/16/17 04:33 07/16/17 04:33 Labs: Short CBC 07/15/17 07/15/17 07/16/17 Range/Units 17:52 22:31 04:33 WBC 15.4 H D (4.3-11.1) K/mcL Hgb 8.6 L D 9.2 L 9.0 L (12.9-16.9) g/dL Hct 26.8 L 29.0 L 27.7 L (37.5-50.1) % Plt Count 234 (140-400) K/mcL Neutrophils # 10.3 H (1.6-8.9) K/mcL BMP 07/16/17 04:33 Sodium 141 Potassium 4.6 H Chloride 105 Carbon Dioxide 27 BUN 26 Creatinine 1.52 H Glucose 127 H Calcium 9.1 - ABG Interpretation ABG results: PT/INR, D-dimer PT 13.0 Seconds (9.4-12.1) H 07/14/17 04:25 - VTE Reasons for not Prescribing Prophylaxis: Medical contraindication Consult Discharge Plan - Plan Instructions: Dobson Catheter Placement and Care (DC), Urinary Leg Bag (GEN) Additional Instructions: Leave dobson catheter in place until evaluation by urology Follow-up with urology in 1 week Take antibiotic (doxycycline) as prescribed for 7 days Do NOT resume your coumadin Follow-up with your PCP Return to the hospital if your symptoms return or worsen [facility]errals: [facility] [Primary Care Provider[facility] - Darci Herrera MD [Partnered Physician] - (Follow-up in 1 week) Prescriptions: Doxycycline 100 mg PO BID #14 capsule <Noel Ang - Last Filed: 07/16/17 18:10> Date of Encounter: 07/16/17 - Constitutional Vitals: Temp Pulse Resp BP Pulse Ox 98.2 F 82 16 149/55 96 07/16/17 15:12 07/16/17 15:12 07/16/17 15:12 07/16/17 15:12 07/16/17 15:12 Internal Medicine: Result - Labs CBC & Chem 7: 07/16/17 04:33 07/16/17 04:33 Labs: Short CBC 07/15/17 07/16/17 Range/Units 22:31 04:33 WBC 15.4 H D (4.3-11.1) K/mcL Hgb 9.2 L 9.0 L (12.9-16.9) g/dL Hct 29.0 L 27.7 L (37.5-50.1) % Plt Count 234 (140-400) K/mcL Neutrophils # 10.3 H (1.6-8.9) K/mcL BMP 07/16/17 04:33 Sodium 141 Potassium 4.6 H Chloride 105 Carbon Dioxide 27 BUN 26 Creatinine 1.52 H Glucose 127 H Calcium 9.1 - ABG Interpretation ABG results: PT/INR, D-dimer PT 13.0 Seconds (9.4-12.1) H 07/14/17 04:25 - Attending Attestation I examined this patient and my medical decision-making was reviewed with the Resident Physician. I agree with the documented findings, disposition and treatment plan as described except to the extent set forth below.
--- NOTE | 2017-07-16 12:41 | Event Note ---
Date of Encounter: 07/16/17 Time of Encounter: 12:39 called by resident regarding plan. I prefer to keep cath in until next week. place cath plug and provide leg bag. Ok with light hematuria. start macrobid for 10-14 days. will evaluate the pt this afternoon if he is still in hospital.
[2017-07-16 15:15] VITALS: BP 149/55
--- NOTE | 2017-07-16 16:28 | Infectious Disease Consult ---
Date of Encounter: 07/16/17 Time of Encounter: 16:21 Assessment and Plan (1) Sepsis Status: Acute Assessment and plan: The patient had two SIRS criteria on admission. Likely secondary to UTI. Improved. Tachycardia has resolved. The patient continues to have leukocytosis. No blood cultures were every drawn. Qualifiers: Sepsis type: sepsis due to unspecified organism Qualified Code(s): A41.9 - Sepsis, unspecified organism (2) UTI (urinary tract infection) Status: Suspected Assessment and plan: Causative organism: S. epi. Likely a contaminant, but given that the patient has SIRS criteria, will treat. Discontinue Rocephin. Start doxycycline 100mg PO BID. Duration of treatment 7 days. Follow up with urology. Qualifiers: Urinary tract infection type: acute cystitis Hematuria presence: with hematuria Qualified Code(s): N30.01 - Acute cystitis with hematuria (3) Gross hematuria Status: Resolved Assessment and plan: Secondary to coumadin-induced coagulopathy. Management per the urology team. (4) Warfarin-induced coagulopathy Status: Acute (5) Anemia Status: Acute Assessment and plan: Secondary to gross blood loss from hematuria. Improved. Management per the primary team. Qualifiers: Anemia type: other cause Other causes of anemia: acute posthemorrhagic Qualified Code(s): D62 - Acute posthemorrhagic anemia (6) Obesity (BMI 30-39.9) Status: Chronic (7) CKD (chronic kidney disease) Status: Chronic Assessment and plan: Serum creatinine at baseline. Continue to trend. No dose-adjustment of doxycycline required. Avoid nephrotoxins as able. Qualifiers: Chronic kidney disease stage: stage 3 (moderate) Qualified Code(s): N18.3 - Chronic kidney disease, stage 3 (moderate) (8) CAD (coronary artery disease), [place] coronary artery Status: Chronic Qualifiers: [place] vs. transplanted heart: [place] heart Associated angina: without angina Qualified Code(s): I25.10 - Atherosclerotic heart disease of [place] coronary artery without angina pectoris Infectious Disease HPI - Data of Consult Patient: new to practice Consult date: 07/16/17 Requesting Physician: Noel Ang MD [facility] Care Provider[facility] - Consult Narrative Reason for consult: Staph epi UTI History of present illness: Mr. 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 The patient was managed the hospital June 30 for warfarin-induced coagulopathy. We are consult July 16 for staph epi UTI. [place] 2-year-old male with past medical history as stated above. The patient presented to the ER with complaints of a 1 week history of worsening hematuria. He states he hasn't had blood in his urine for several days but it became worse on the day of admission. Upon arrival, the patient was afebrile. He was tachycardic and had a mild leukocytosis. He complained of some dysuria and urinary frequency as well. Other labs were significant for a serum creatinine of 1.71, which is pretty close to the patient's baseline. Urinalysis was obtained and was positive for moderate leukocyte esterase and the culture grew out staph epi. A CT the abdomen and pelvis showed an indeterminate hyperdensity within the bladder. Urology was consulted and completed a bladder irrigation. Continued to have hematuria. A repeat CT the abdomen and pelvis showed is consistent with a possible clot in the bladder. The patient was taken to the operating room on July 14 and had a cystoscopy with bladder washout. Yesterday, his white blood cell count normalized, but is back up a little bit today. His renal function is at baseline. We've been asked to evaluate and make further recommendations. My exam today, patient states overall he feels well. He endorses a history as stated above. He denies any fevers or chills or rigors. He denies any headache or neck pain. He denies any congestion, earache, or sore throat. He denies any chest pain, shortness of breath, or cough. He denies any nausea, vomiting, diarrhea, or constipation. He denies any abdominal pain at this time. He states he was having some lower abdominal and scrotal pain upon arrival, but this is resolved. He denies any oral thrush or any skin lesions. He states he would like to go home without the Dobson catheter. CC: Noel Ang MD Past Med Surg Social Fam HX - Past Medical History Attestation: Yes The following information was validated with the patient. Source: patient, old records reviewed, nursing notes reviewed Medical history: arthritis, asthma, coronary artery disease, DVT, dementia, diabetes, fibromyalgia, GERD, GI bleed, hyperlipidemia, hypertension, osteoporosis, renal disease, venous stasis, other Psychiatric history: anxiety, depression, other - Past Surgical History Surgical History: appendectomy, arthroscopy, herniorrhaphy, orthopedic, other, other - Social History Smoking Status: Former smoker Smokeless Tobacco Status: No Alcohol use: none Drug use: none Occupational status: retired Current living situation: Home - Independent Activity Level: Independent ambulation Recent Out of Country Travel Within the Last 8 Weeks: No Exposure or Possible Exposure to Illness During Travel: No - Family History Father Name: bin malcolm Living Status: Age at : 37 Cause of : fight Mother Name: galileo malcolm Living Status: Age at : 96 Cause of : old age Infectious Disease-CN:Meds Amlodipine Besylate 10 mg PO DAILY 09/27/16 [History] Aspirin 81 mg PO DAILY 09/27/16 [History] Memantine [Namenda] 5 mg PO HS 09/27/16 [History] Methadone 60 mg PO Q8HR 09/27/16 [History] Nystatin POWDER [Nystop] 1 appl TP BID 09/27/16 [History] Acetaminophen [Tylenol] 650 mg PO Q6HR PRN #0 tablet 09/28/16 [Rx] Glucagon, Human Recombinant [Glucagen] 1 mg IM ONCE PRN #0 vial 09/28/16 [Rx] HYDROmorphone (PF) [Dilaudid] 0.5 mg IVP Q2H PRN #0 syringe 09/28/16 [Rx] LORazepam [Ativan] 0.5 mg PO HS PRN #0 tablet 09/28/16 [Rx] Ondansetron [Zofran] 4 mg IVP Q6HR PRN #0 vial 09/28/16 [Rx] Pantoprazole [Protonix] 40 mg IVP DAILY vial 09/28/16 [Rx] Atorvastatin Calcium [Lipitor] 80 mg PO HS 07/10/17 [History] Calcium Carbonate [Calcium] 600 mg PO BID 07/10/17 [History] Cholecalciferol (D-3) [Vitamin D] 2,000 unit PO DAILY 07/10/17 [History] Cyclobenzaprine [Flexeril] 10 mg PO TID PRN 07/10/17 [History] Ferrous Sulfate [Iron] 325 mg PO TID 07/10/17 [History] Furosemide [Lasix] 40 mg PO BID 07/10/17 [History] Isosorbide MONOnitrate (24 HR) [Imdur] 60 mg PO DAILY 07/10/17 [History] Lisinopril [Zestril] 10 mg PO DAILY 07/10/17 [History] Metoprolol Succinate 50 mg PO DAILY 07/10/17 [History] Nitroglycerin [Nitrostat] 0.4 mg SL Q5M PRN 07/10/17 [History] Sennosides/Docusate Sodium [Senna-Docusate Sodium Tablet] 2 tab PO DAILY [History] Sertraline [Zoloft] 50 mg PO DAILY 07/10/17 [History] metFORMIN [Glucophage] 500 mg PO BIDWM 07/10/17 [History] predniSONE [PredniSONE] 3 mg PO DAILY 07/10/17 [History] Doxycycline 100 mg PO BID #14 capsule 07/16/17 [Rx] 3 Allergy/AdvReac Type Severity Reaction Status Date / Time colchicine Allergy Difficulty Verified 07/10/17 10:20 Breathing gabapentin Allergy Difficulty Verified 07/10/17 10:20 Breathing griseofulvin Allergy Difficulty Verified 07/10/17 10:20 Breathing methocarbamol Allergy Difficulty Verified 07/10/17 10:20 Breathing pregabalin [From Lyrica] Allergy Difficulty Verified 07/10/17 10:20 Breathing sulfamethoxazole Allergy Difficulty Verified 07/10/17 10:20 [From Bactrim] Breathing trimethoprim [From Bactrim] Allergy Difficulty Verified 07/10/17 10:20 Breathing acarbose AdvReac Difficulty Verified 07/10/17 10:20 Breathing IV CONTRAST Allergy Difficulty Uncoded 09/27/16 16:48 Breathing All systems: reviewed and no additional remarkable complaints except as stated Exam - Constitutional Vitals: Temp Pulse Resp BP Pulse Ox 98.2 F 82 16 149/55 96 07/16/17 15:12 07/16/17 15:12 07/16/17 15:12 07/16/17 15:12 07/16/17 15:12 General appearance: cooperative, morbidly obese, no acute distress - Head Head exam: Present: atraumatic, normal inspection, normocephalic - Eye Eye exam: Present: EOMI, normal appearance, PERRL Pupils: Present: normal accommodation - ENT ENT exam: Present: mucous membranes moist - Neck Neck exam: Present: normal inspection - Respiratory Respiratory exam: Present: CTAB. Absent: rales, respiratory distress, rhonchi, wheezes - Cardiovascular Cardiovascular exam: Present: RRR, +S1, +S2 - GI/Abdominal GI/Abdominal exam: Present: normal bowel sounds, soft. Absent: distended, tenderness Additional comments: Dobson catheter noted to be draining clear yellow urine. - Extremities Exam Extremities exam: Absent: joint swelling, pedal edema, tenderness - Neurological Exam Neurological exam: Present: alert, oriented X3, no focal deficits - Psychiatric Psychiatric exam: Present: normal affect, normal mood - Skin Skin exam: Present: dry, intact, normal color, warm Infectious Disease CN: Results - Labs CBC & Chem 7: 07/16/17 04:33 07/16/17 04:33 Cultures: Cultures 07/10/17 10:58 Urine Culture - Final Urine,Clean Catch Staphylococcus epidermidis - VTE Reasons for not Prescribing Prophylaxis: Medical contraindication Consult Discharge Plan - Plan Instructions: Dobson Catheter Placement and Care (DC), Urinary Leg Bag (GEN) Additional Instructions: Leave dobson catheter in place until evaluation by urology Follow-up with urology in 1 week Take antibiotic (doxycycline) as prescribed for 7 days Do NOT resume your coumadin Follow-up with your PCP Return to the hospital if your symptoms return or worsen [facility]errals: [facility] [Primary Care Provider[facility] - Darci Herrera MD [Partnered Physician] - (Follow-up in 1 week) Prescriptions: Doxycycline 100 mg PO BID #14 capsule
--- NOTE | 2017-07-16 16:53 | Discharge Summary ---
<Jude Purdy R - Last Filed: 07/16/17 17:10> Date of Encounter: 07/16/17 Time of Encounter: 16:47 - Discharge Diagnosis (1) Warfarin-induced coagulopathy Priority: Primary Status: Acute (2) UTI (urinary tract infection) Priority: Secondary Status: Suspected Qualifiers: Urinary tract infection type: acute cystitis Hematuria presence: with hematuria Qualified Code(s): N30.01 - Acute cystitis with hematuria (3) Supratherapeutic INR Priority: Secondary Status: Resolved (4) Anemia Priority: Secondary Status: Acute Qualifiers: Anemia type: other cause Other causes of anemia: acute posthemorrhagic Qualified Code(s): D62 - Acute posthemorrhagic anemia (5) Hematuria Priority: Secondary Status: Acute Qualifiers: Hematuria type: gross Qualified Code(s): R31.0 - Gross hematuria (6) Type 2 diabetes mellitus Priority: Secondary Status: Chronic Qualifiers: Diabetes mellitus complication status: with unspecified complications Diabetes mellitus fci insulin use: unspecified fci insulin use status Qualified Code(s): E11.8 - Type 2 diabetes mellitus with unspecified complications (7) Hypertension Priority: Secondary Status: Chronic Qualifiers: Hypertension type: unspecified secondary hypertension Qualified Code(s): I15.9 - Secondary hypertension, unspecified; I15 - Secondary hypertension (8) Dyslipidemia Priority: Secondary Status: Chronic (9) History of DVT (deep vein thrombosis) Priority: Secondary Status: Chronic (10) CAD (coronary artery disease), [place] coronary artery Priority: Secondary Status: Chronic Qualifiers: [place] vs. transplanted heart: [place] heart Associated angina: without angina Qualified Code(s): I25.10 - Atherosclerotic heart disease of [place] coronary artery without angina pectoris (11) Hyperkalemia Priority: Secondary Status: Acute (12) CKD (chronic kidney disease) Priority: Secondary Status: Chronic Qualifiers: Chronic kidney disease stage: stage 3 (moderate) Qualified Code(s): N18.3 - Chronic kidney disease, stage 3 (moderate) - Discharge Medications Prescriptions: Doxycycline 100 mg PO BID #14 capsule Home Medications: Amlodipine Besylate 10 mg PO DAILY 09/27/16 [History] Aspirin 81 mg PO DAILY 09/27/16 [History] Memantine [Namenda] 5 mg PO HS 09/27/16 [History] Methadone 60 mg PO Q8HR 09/27/16 [History] Nystatin POWDER [Nystop] 1 appl TP BID 09/27/16 [History] Acetaminophen [Tylenol] 650 mg PO Q6HR PRN #0 tablet 09/28/16 [Rx] Glucagon, Human Recombinant [Glucagen] 1 mg IM ONCE PRN #0 vial 09/28/16 [Rx] HYDROmorphone (PF) [Dilaudid] 0.5 mg IVP Q2H PRN #0 syringe 09/28/16 [Rx] LORazepam [Ativan] 0.5 mg PO HS PRN #0 tablet 09/28/16 [Rx] Ondansetron [Zofran] 4 mg IVP Q6HR PRN #0 vial 09/28/16 [Rx] Pantoprazole [Protonix] 40 mg IVP DAILY vial 09/28/16 [Rx] Atorvastatin Calcium [Lipitor] 80 mg PO HS 07/10/17 [History] Calcium Carbonate [Calcium] 600 mg PO BID 07/10/17 [History] Cholecalciferol (D-3) [Vitamin D] 2,000 unit PO DAILY 07/10/17 [History] Cyclobenzaprine [Flexeril] 10 mg PO TID PRN 07/10/17 [History] Ferrous Sulfate [Iron] 325 mg PO TID 07/10/17 [History] Furosemide [Lasix] 40 mg PO BID 07/10/17 [History] Isosorbide MONOnitrate (24 HR) [Imdur] 60 mg PO DAILY 07/10/17 [History] Lisinopril [Zestril] 10 mg PO DAILY 07/10/17 [History] Metoprolol Succinate 50 mg PO DAILY 07/10/17 [History] Nitroglycerin [Nitrostat] 0.4 mg SL Q5M PRN 07/10/17 [History] Sennosides/Docusate Sodium [Senna-Docusate Sodium Tablet] 2 tab PO DAILY [History] Sertraline [Zoloft] 50 mg PO DAILY 07/10/17 [History] metFORMIN [Glucophage] 500 mg PO BIDWM 07/10/17 [History] predniSONE [PredniSONE] 3 mg PO DAILY 07/10/17 [History] Doxycycline 100 mg PO BID #14 capsule 07/16/17 [Rx] Allergies/Adverse Reactions: 3 Allergy/AdvReac Type Severity Reaction Status Date / Time colchicine Allergy Difficulty Verified 07/10/17 10:20 Breathing gabapentin Allergy Difficulty Verified 07/10/17 10:20 Breathing griseofulvin Allergy Difficulty Verified 07/10/17 10:20 Breathing methocarbamol Allergy Difficulty Verified 07/10/17 10:20 Breathing pregabalin [From Lyrica] Allergy Difficulty Verified 07/10/17 10:20 Breathing sulfamethoxazole Allergy Difficulty Verified 07/10/17 10:20 [From Bactrim] Breathing trimethoprim [From Bactrim] Allergy Difficulty Verified 07/10/17 10:20 Breathing acarbose AdvReac Difficulty Verified 07/10/17 10:20 Breathing IV CONTRAST Allergy Difficulty Uncoded 09/27/16 16:48 Breathing Procedures/tests Complete & Pending: Procedures Performed prior 72 hours Category Date Time Status CT pelvis wo no iv no oral [CT] Routine Cat Scan 07/14/17 08:00 Completed Date of admission: 07/10/17 13:40 [facility] care physician: [facility] Consults: 07/11/17 10:41 Consult to Urology [CONS] Stat Consulting Provider: Urology Y[facility] Reason for Consult: Hematuria wth blood clots and supratherapeutic INR, CT scan shows some possible bladder lesion. Please evaluate Time Notified: 10:41 Call Completed: Yes 07/15/17 12:02 Consult to Infectious Diseases [CONS] Routine Consulting Provider: Infectious Disease [place] [facility] Reason for Consult: Antibiotic management for complicated UTI Time Notified: 12:03 Call Completed: Yes - Patient Status Disposition: Home, Self-Care Condition: Fair Functional capacity at discharge: independent ambulation Overall status at discharge: patient is back to baseline - Discharge Instructions Instructions: Dobson Catheter Placement and Care (DC), Urinary Leg Bag (GEN) Follow Up With: [facility] [Primary Care Provider] - Darci Herrera MD [Partnered Physician] - (Follow-up in 1 week) Additional Instructions: Leave dobson catheter in place until evaluation by urology Follow-up with urology in 1 week Take antibiotic (doxycycline) as prescribed for 7 days Do NOT resume your coumadin Follow-up with your PCP Return to the hospital if your symptoms return or worsen - Diet and Activity Activity: increase activity as tolerated Diet: low fat, low cholesterol Interval History: Pt doing well with no complaints. Denies abdominal pain or tenderness. Mildly red-tinged urine in dobson bag without clots. Denies fevers, chills, dizziness, chest pain, dyspnea, N/V/D/C, dysuria, or leg pain/edema. Hospital course: Mr. Hoffmann is a 82 year old male presenting to the hospital with gross hematuria in the setting of supratherapeutic INR (5.5). This has happened in the past and he usually holds a dose of coumadin and it resolves. This time his hematuria was worse and not resolving. Coumadin was held, but hematuria continued resulting in anemia. The patient was transfused a total of 5 U RBCs and 1 U of plasma. Urology was consulted. The patient continued to have residual bladder clots on CT and was taken to surgery for cystoscopy and fulguration of the bladder. UA was indicative of UTI as well and the patient was started on Rocephin. ID was consulted with complicated UTI in a male patient with urological procedure. Antibiotic changed to doxycycline after culture sensitivities returned. Due to no indication other than one previous provoked DVT, the patient is advised to not resume taking coumadin until he can discuss this further with his PCP. He is to be discharged home with dobson in place and to follow-up with Urology in 1 week. - Time Spent with Patient Total time spent providing and/or coordinating discharge services: Greater than 30 minutes - Constitutional Vitals: Temp Pulse Resp BP Pulse Ox 98.2 F 82 16 149/55 96 07/16/17 15:12 07/16/17 15:12 07/16/17 15:12 07/16/17 15:12 07/16/17 15:12 General appearance: Present: cooperative, A&O X 3, no acute distress, obese, answers questions appropriately - Head Head exam: Present: atraumatic, normocephalic - Eye Eye exam: Present: conjuntiva pink, sclera anicteric - ENT ENT exam: Present: mucous membranes moist - Neck Neck exam general surgery: Present: supple, trachea midline - Respiratory Respiratory exam: Present: CTAB. Absent: accessory muscle use, rales, rhonchi, wheezes - Cardiovascular Cardiovascular exam: Present: RRR, +S1, +S2. Absent: diastolic murmur, systolic murmur - GI/Abdominal GI/Abdominal exam: Present: normal bowel sounds, soft, no peritoneal signs. Absent: distended, tenderness - Extremities Exam Extremities exam: Present: pedal edema, warm, radial pulses palpable and symmetrical. Absent: calf tenderness, cyanotic - Neurological Exam Neurological exam: Present: CN II-XII intact, oriented X3, no focal deficits. Absent: pronater drift, facial droop, speech deficit - Skin Skin exam: Present: dry, intact - VTE Reasons for not Prescribing Prophylaxis: Medical contraindication <Ashia,Noel P - Last Filed: 07/16/17 18:10> Date of Encounter: 07/16/17 Procedures/tests Complete & Pending: Procedures Performed prior 72 hours Category Date Time Status CT pelvis wo no iv no oral [CT] Routine Cat Scan 07/14/17 08:00 Completed Date of admission: 07/10/17 13:40 [facility] care physician: [facility] Consults: 07/11/17 10:41 Consult to Urology [CONS] Stat Consulting Provider: Urology [place] [facility] Reason for Consult: Hematuria wth blood clots and supratherapeutic INR, CT scan shows some possible bladder lesion. Please evaluate Time Notified: 10:41 Call Completed: Yes 07/15/17 12:02 Consult to Infectious Diseases [CONS] Routine Consulting Provider: Infectious Disease [place] [facility] Reason for Consult: Antibiotic management for complicated UTI Time Notified: 12:03 Call Completed: Yes Hospital course: Mr. Hoffmann is a 82 year old male - Time Spent with Patient Total time spent providing and/or coordinating discharge services: - Constitutional Vitals: Temp Pulse Resp BP Pulse Ox 98.2 F 82 16 149/55 96 07/16/17 15:12 07/16/17 15:12 07/16/17 15:12 07/16/17 15:12 07/16/17 15:12 - Attending Attestation I examined this patient and my medical decision-making was reviewed with the Resident Physician. I agree with the documented findings, disposition and treatment plan as described except to the extent set forth below. Follow-up with primary care/urology/infectious disease.
--- NOTE | 2017-07-16 18:38 | Physician Discharge Referral ---
<Mee Hurtado - Last Filed: 07/16/17 18:36> Home Health/Hosp Referral Info Transfer to: Home Health Provider in Charge Post Discharge: PCP - Diagnosis (1) Warfarin-induced coagulopathy Priority: Primary Status: Acute (2) UTI (urinary tract infection) Priority: Secondary Status: Suspected (3) Supratherapeutic INR Priority: Secondary Status: Resolved (4) Anemia Priority: Secondary Status: Acute (5) Hematuria Priority: Secondary Status: Acute (6) Type 2 diabetes mellitus Priority: Secondary Status: Chronic - Respiratory Orders Oxygen / L per min (3L) Smoking Cessation: Smoking cessation has been advised. For more information, call the [place] Tobacco Quit Line at 8-475-TVCJ-NOW. - Diet/Nutrition Diet/Nutrition Orders: No Concentrated Sweets (ADA diet) - Activity Activity Orders: Up ad rosa, Ambulate - Services Needed Following services are medically necessary services: Home Health Aide - Transfer Medications Prescriptions: Doxycycline 100 mg PO BID #14 capsule Home Medications: Amlodipine Besylate 10 mg PO DAILY 09/27/16 [History] Aspirin 81 mg PO DAILY 09/27/16 [History] Memantine [Namenda] 5 mg PO HS 09/27/16 [History] Methadone 60 mg PO Q8HR 09/27/16 [History] Nystatin POWDER [Nystop] 1 appl TP BID 09/27/16 [History] Acetaminophen [Tylenol] 650 mg PO Q6HR PRN #0 tablet 09/28/16 [Rx] Glucagon, Human Recombinant [Glucagen] 1 mg IM ONCE PRN #0 vial 09/28/16 [Rx] HYDROmorphone (PF) [Dilaudid] 0.5 mg IVP Q2H PRN #0 syringe 09/28/16 [Rx] LORazepam [Ativan] 0.5 mg PO HS PRN #0 tablet 09/28/16 [Rx] Ondansetron [Zofran] 4 mg IVP Q6HR PRN #0 vial 09/28/16 [Rx] Pantoprazole [Protonix] 40 mg IVP DAILY vial 09/28/16 [Rx] Atorvastatin Calcium [Lipitor] 80 mg PO HS 07/10/17 [History] Calcium Carbonate [Calcium] 600 mg PO BID 07/10/17 [History] Cholecalciferol (D-3) [Vitamin D] 2,000 unit PO DAILY 07/10/17 [History] Cyclobenzaprine [Flexeril] 10 mg PO TID PRN 07/10/17 [History] Ferrous Sulfate [Iron] 325 mg PO TID 07/10/17 [History] Furosemide [Lasix] 40 mg PO BID 07/10/17 [History] Isosorbide MONOnitrate (24 HR) [Imdur] 60 mg PO DAILY 07/10/17 [History] Lisinopril [Zestril] 10 mg PO DAILY 07/10/17 [History] Metoprolol Succinate 50 mg PO DAILY 07/10/17 [History] Nitroglycerin [Nitrostat] 0.4 mg SL Q5M PRN 07/10/17 [History] Sennosides/Docusate Sodium [Senna-Docusate Sodium Tablet] 2 tab PO DAILY [History] Sertraline [Zoloft] 50 mg PO DAILY 07/10/17 [History] metFORMIN [Glucophage] 500 mg PO BIDWM 07/10/17 [History] predniSONE [PredniSONE] 3 mg PO DAILY 07/10/17 [History] Doxycycline 100 mg PO BID #14 capsule 07/16/17 [Rx] Allergies/Adverse Reactions: 3 Allergy/AdvReac Type Severity Reaction Status Date / Time colchicine Allergy Difficulty Verified 07/10/17 10:20 Breathing gabapentin Allergy Difficulty Verified 07/10/17 10:20 Breathing griseofulvin Allergy Difficulty Verified 07/10/17 10:20 Breathing methocarbamol Allergy Difficulty Verified 07/10/17 10:20 Breathing pregabalin [From Lyrica] Allergy Difficulty Verified 07/10/17 10:20 Breathing sulfamethoxazole Allergy Difficulty Verified 07/10/17 10:20 [From Bactrim] Breathing trimethoprim [From Bactrim] Allergy Difficulty Verified 07/10/17 10:20 Breathing acarbose AdvReac Difficulty Verified 07/10/17 10:20 Breathing IV CONTRAST Allergy Difficulty Uncoded 09/27/16 16:48 Breathing Certification: Further, I certify that my clinical findings support that this patient is homebound (i.e. absences from home require considerable and taxing effort and are for medical reasons or anglican services or infrequently or short duration when for other reasons) because: Homebound Reason: Patient requires assistance of a person or device to safely leave home Attestation: My signature below is to certify that this patient is under my care and that I, or nurse practitioner, or a physician's assistant spa director working with me, has a face-to -face encounter with this patient. <Noel Ang P - Last Filed: 07/21/17 18:05> - Respiratory Orders Smoking Cessation: Smoking cessation has been advised. For more information, call the [place] Tobacco Quit Line at 2-750-DJCA-NOW. Certification: Further, I certify that my clinical findings support that this patient is homebound (i.e. absences from home require considerable and taxing effort and are for medical reasons or anglican services or infrequently or short duration when for other reasons) because: Attestation: My signature below is to certify that this patient is under my care and that I, or nurse practitioner, or a physician's assistant spa director working with me, has a face-to -face encounter with this patient.
== END 2017-07-16 20:10 | disposition home or self-care (01) | DRG 666 ==
LOC: EMEROO 10:10 → 2NENU 10:10 → SUATTDRO 13:40
PROVIDERS: ADMIT Internal Medicine; ATTEND Internal Medicine

== ENCOUNTER 2017-10-24 09:12 | Observation (INO) ==
--- NOTE | 2017-10-24 09:44 | Emergency Department Note ---
Disposition Clinical Impression: Hypoglycemia, Altered sensorium due to hypoglycemia Disposition: Admitted As Inpatient [facility] Care Provider[facility] - Time of Disposition: 11:33 General Adult HPI - General Stated complaint: hypoglycemia Time Seen by Provider: 10/24/17 09:20 Source: patient, family, EMS Limitations: no limitations - History of Present Illness HPI Narrative: Patient presents to the ED with a low blood sugar. Patient's blood sugar was 45 this morning. He slid out of the chair where he sleeps. Denies injury. Blood sugar in the 30s per EMS. He received an amp of D50 by Arrival here. Family states he has been having trouble controlling his blood sugars. He has been seen here once and had a blood sugar of 17. He is followed up with his physician at the [facility] and they adjusted his Lantus. He is currently on 33 units of Lantus at night and 500 mg of metformin twice a day. Family thinks he has felt feverish lately. No vomiting or diarrhea. No chest pain. Pain Scale: 0 - Related Data Home Medications Medication Instructions Recorded Confirmed Amlodipine Besylate 10 mg PO DAILY 09/27/16 07/10/17 Aspirin 81 mg PO DAILY 09/27/16 07/10/17 Memantine [Namenda] 5 mg PO HS 09/27/16 07/10/17 Methadone 60 mg PO Q8HR 09/27/16 07/10/17 Nystatin POWDER [Nystop] 1 appl TP BID 09/27/16 07/10/17 Atorvastatin Calcium [Lipitor] 80 mg PO HS 07/10/17 07/10/17 Calcium Carbonate [Calcium] 600 mg PO BID 07/10/17 07/10/17 Cholecalciferol (D-3) [Vitamin D] 2,000 unit PO DAILY 07/10/17 07/10/17 Cyclobenzaprine [Flexeril] 10 mg PO TID PRN 07/10/17 07/10/17 Ferrous Sulfate [Iron] 325 mg PO TID 07/10/17 07/10/17 Furosemide [Lasix] 40 mg PO BID 07/10/17 07/10/17 Isosorbide MONOnitrate (24 HR) 60 mg PO DAILY 07/10/17 07/10/17 [Imdur] Lisinopril [Zestril] 10 mg PO DAILY 07/10/17 07/10/17 Metoprolol Succinate 50 mg PO DAILY 07/10/17 07/10/17 Nitroglycerin [Nitrostat] 0.4 mg SL Q5M PRN 07/10/17 07/10/17 Sennosides/Docusate Sodium 2 tab PO DAILY 07/10/17 07/10/17 [Senna-Docusate Sodium Tablet] Sertraline [Zoloft] 50 mg PO DAILY 07/10/17 07/10/17 metFORMIN [Glucophage] 500 mg PO BIDWM 07/10/17 07/10/17 predniSONE [PredniSONE] 3 mg PO DAILY 07/10/17 07/10/17 Previous Rx's Medication Instructions Recorded Acetaminophen [Tylenol] 650 mg PO Q6HR PRN #0 tablet 09/28/16 Glucagon, Human Recombinant 1 mg IM ONCE PRN #0 vial 09/28/16 [Glucagen] HYDROmorphone (PF) [Dilaudid] 0.5 mg IVP Q2H PRN #0 syringe 09/28/16 LORazepam [Ativan] 0.5 mg PO HS PRN #0 tablet 09/28/16 Ondansetron [Zofran] 4 mg IVP Q6HR PRN #0 vial 09/28/16 Pantoprazole [Protonix] 40 mg IVP DAILY vial 09/28/16 Doxycycline 100 mg PO BID #14 capsule 07/16/17 Allergies Allergy/AdvReac Type Severity Reaction Status Date / Time colchicine Allergy Difficulty Verified 10/22/17 13:59 Breathing gabapentin Allergy Difficulty Verified 10/22/17 13:59 Breathing griseofulvin Allergy Difficulty Verified 10/22/17 13:59 Breathing methocarbamol Allergy Difficulty Verified 10/22/17 13:59 Breathing pregabalin [From Lyrica] Allergy Difficulty Verified 10/22/17 13:59 Breathing sulfamethoxazole Allergy Difficulty Verified 10/22/17 13:59 [From Bactrim] Breathing trimethoprim [From Bactrim] Allergy Difficulty Verified 10/22/17 13:59 Breathing acarbose AdvReac Difficulty Verified 10/22/17 13:59 Breathing IV CONTRAST Allergy Difficulty Uncoded 10/22/17 13:59 Breathing All systems ED: reviewed and negative except as stated. Constitutional: Reports: fever, chills Cardiovascular: Denies: chest pain Respiratory: Denies: dyspnea, wheezes Gastrointestinal: Denies: abdominal pain, nausea, vomiting, diarrhea Past Medical History - Past Medical History Attestation: Yes The following information was validated with the patient. Source: patient Medical history: Reports: arthritis, asthma, coronary artery disease, DVT, dementia, diabetes, fibromyalgia, GERD, GI bleed, hyperlipidemia, hypertension, osteoporosis, renal disease, venous stasis, other Surgical history: Reports: appendectomy, arthroscopy, herniorrhaphy, orthopedic , other, other Psychiatric history: Reports: anxiety, depression, other - Social History Smoking Status: Former smoker Smokeless Tobacco Status: No Alcohol use: Reports: none Drug use: Reports: none Physical Exam Patient awake alert and oriented. Sitting up on the cot in no acute distress. Afebrile. - General Limitations: no limitations General appearance: alert, in no apparent distress - Head Head exam: atraumatic, normocephalic, normal inspection - Eye Eye exam: Present: normal appearance, PERRL - ENT ENT exam: normal exam - Neck Neck exam: Present: normal inspection, full ROM - Chest Chest inspection: Present: normal inspection - Respiratory Respiratory exam: Present: normal lung sounds bilaterally - Cardiovascular Cardiovascular exam: Present: regular rate, normal rhythm, normal heart sounds - Abdominal Exam Abdominal exam: Present: soft, Non-Tender - Neurological Exam Neurological exam: Present: alert, oriented X3 - Psychiatric Psychiatric exam: Present: normal affect - Skin Skin exam: Present: warm, dry Course - Reevaluation(s) Reevaluation #1: Patient's blood sugar recheck was 60s. No tray ordered. He is given juice. We will admit for further management of his diabetes. Time: 11:26 - Consultations Consultation #1: Dr Marin accepts Time: 11:28 Vital Signs Temperature 98.2 F 10/24/17 09:24 Pulse Rate 80 10/24/17 09:24 Respiratory Rate 18 10/24/17 09:24 Blood Pressure 131/78 10/24/17 09:24 O2 Sat by Pulse Oximetry 90 10/24/17 09:24 Temperature 98.2 F 10/24/17 09:24 Pulse Rate 78 10/24/17 11:21 Respiratory Rate 18 10/24/17 11:21 Blood Pressure 144/98 10/24/17 11:21 O2 Sat by Pulse Oximetry 98 10/24/17 11:21 Oxygen Delivery Oxygen Delivery Nasal Cannula Medical Decision Making - Lab Data Result diagrams: 10/24/17 09:57 10/24/17 09:57 Lab Results 10/24/17 10/24/17 10/24/17 Range/Units 09:16 09:57 09:57 WBC 12.3 H (4.3-11.1) K/mcL RBC 3.49 L (4.19-5.50) M/mcL Hgb 9.8 L (12.9-16.9) g/dL Hct 31.2 L (37.5-50.1) % MCV 89.4 (83.0-100.0) fL MCH 28.1 (28.0-33.3) pg MCHC 31.4 L (31.6-35.5) g/dL RDW 15.9 H (11.5-14.5) % Plt Count 380 (140-400) K/mcL MPV 9.1 L (9.4-12.4) fL Immature Gran % 0.8 (0-4) % Seg Neutrophils % 71.3 % Lymphocytes % 18.9 % Monocytes % 5.3 % Eosinophils % 3.2 % Basophils % 0.5 % Neutrophils # 8.8 (1.6-8.9) K/mcL Lymphocytes # 2.3 (0.6-4.6) K/mcL Monocytes # 0.7 (0.0-1.3) K/mcL Eosinophils # 0.4 (0.0-0.6) K/mcL Basophils # 0.1 (0.0-0.2) K/mcL Sodium 139 (136-145) mEq/L Potassium 3.8 (3.5-5.1) mEq/L Chloride 107 (98-107) mEq/L Carbon Dioxide 26 (23-29) mEq/L BUN 29 H (8-23) mg/dL Creatinine 1.26 (0.70-1.30) mg/dL Est GFR ( Amer) > 60 (> 60) Est GFR (Non-Af Amer) 55 L (> 60) BUN/Creatinine Ratio 23 (6-26) Glucose 83 (70-105) mg/dL POC Glucose 96 H (58-89) Calculated Osmolality 293 (280-300) Calcium 9.0 (8.6-10.3) mg/dL Urine Color (Yellow) Urine Clarity (Clear) Urine pH (5.0-8.0) pH Units Ur Specific Olin (1.010-1.025) Urine Protein (Neg-Trace) mg/dL Urine Glucose (UA) (Normal) mg/dL Urine Ketones (Negative) mg/dL Urine Blood (Negative) Urine Nitrite (Negative) Urine Bilirubin (Negative) Urine Urobilinogen (Normal) mg/dL Ur Leukocyte Esterase (Negative) Urine Microscopic RBC (0-3) per hpf Urine Microscopic WBC (0-3) per hpf Ur Squamous Epith Cells (None-Few) per lpf Ur Renal Epithelial Cell (None-Few) per hpf Hyaline Casts (None-Few) per lpf Ur Culture Indicated? (NO) 10/24/17 Range/Units 10:04 WBC (4.3-11.1) K/mcL RBC (4.19-5.50) M/mcL Hgb (12.9-16.9) g/dL Hct (37.5-50.1) % MCV (83.0-100.0) fL MCH (28.0-33.3) pg MCHC (31.6-35.5) g/dL RDW (11.5-14.5) % Plt Count (140-400) K/mcL MPV (9.4-12.4) fL Immature Gran % (0-4) % Seg Neutrophils % % Lymphocytes % % Monocytes % % Eosinophils % % Basophils % % Neutrophils # (1.6-8.9) K/mcL Lymphocytes # (0.6-4.6) K/mcL Monocytes # (0.0-1.3) K/mcL Eosinophils # (0.0-0.6) K/mcL Basophils # (0.0-0.2) K/mcL Sodium (136-145) mEq/L Potassium (3.5-5.1) mEq/L Chloride (98-107) mEq/L Carbon Dioxide (23-29) mEq/L BUN (8-23) mg/dL Creatinine (0.70-1.30) mg/dL Est GFR ( Amer) (> 60) Est GFR (Non-Af Amer) (> 60) BUN/Creatinine Ratio (6-26) Glucose (70-105) mg/dL POC Glucose (58-89) Calculated Osmolality (280-300) Calcium (8.6-10.3) mg/dL Urine Color Yellow (Yellow) Urine Clarity Cloudy A (Clear) Urine pH 5.5 (5.0-8.0) pH Units Ur Specific Olin 1.016 (1.010-1.025) Urine Protein Negative (Neg-Trace) mg/dL Urine Glucose (UA) Normal (Normal) mg/dL Urine Ketones Negative (Negative) mg/dL Urine Blood Negative (Negative) Urine Nitrite Negative (Negative) Urine Bilirubin Negative (Negative) Urine Urobilinogen Normal (Normal) mg/dL Ur Leukocyte Esterase Moderate H (Negative) Urine Microscopic RBC 0-3 (0-3) per hpf Urine Microscopic WBC 5-15 H (0-3) per hpf Ur Squamous Epith Cells Many H (None-Few) per lpf Ur Renal Epithelial Cell Few (None-Few) per hpf Hyaline Casts Few (None-Few) per lpf Ur Culture Indicated? NO. (NO) - Radiology Data Radiology results reviewed: Yes I reviewed the patient's radiology results. Chest X-Ray 10/24/17 09:21 IMPRESSION: 1. No convincing acute cardiopulmonary abnormality. 2. There appears to be mild rightward shift of the mediastinum, which appears unchanged. 3. Minimal bibasilar scarring/atelectasis. D/ / Rolando Rocha MD / Rolando Rocha MD Interpreting Provider: Rolando Rocha MD - EKG Data EKG #1 EKG results narrative: Normal sinus rhythm at 62. Right bundle branch block. Normal ST segments. QTc 450 with a QT of 445. Normal axis. Unchanged from EKG September 2016.
[2017-10-24 10:14] LABS: Bilirubin,Urine Negative (Negative); Blood,Urine Negative (Negative); Clarity,Urine Cloudy (Clear); Color,Urine Yellow (Yellow); Glucose,Urine (UA) Normal (Normal); Ketones,Urine Negative (Negative); Leukocyte Esterase,Urine Moderate (Negative); Nitrite,Urine Negative (Negative); PH,Urine 5.5 pH Units (5.0-8.0); Protein,Urine Negative (Neg-Trace); Specific Gravity,Urine 1.016 (1.010-1.025); Urobilinogen,Urine Normal (Normal)
[2017-10-24 10:16] LABS: Hyaline Casts,Urine Few per lpf (None-Few); RBC,Urine 0-3 per hpf (0-3); Squamous Epithelial Cell,Urine Many per lpf (None-Few)
[2017-10-24 10:26] LABS: Basophils # 0.1 K/mcL (0.0-0.2); Basophils % 0.5 %; Eosinophils # 0.4 K/mcL (0.0-0.6); Eosinophils % 3.2 %; Hematocrit 31.2 % (37.5-50.1); Hemoglobin 9.8 g/dL (12.9-16.9); Immature Granulocytes % 0.8 % (0-4); Lymphocytes # 2.3 K/mcL (0.6-4.6); Lymphocytes % 18.9 %; Mean Corpuscular HGB Conc 31.4 g/dL (31.6-35.5); Mean Corpuscular Hemoglobin 28.1 pg (28.0-33.3); Mean Corpuscular Volume 89.4 fL (83.0-100.0); Mean Platelet Volume 9.1 fL (9.4-12.4); Monocytes # 0.7 K/mcL (0.0-1.3); Monocytes % 5.3 %; Neutrophils # 8.8 K/mcL (1.6-8.9); Platelet Count 380 K/mcL (140-400); Red Blood Count 3.49 M/mcL (4.19-5.50); Red Cell Distribution Width 15.9 % (11.5-14.5); Segmented Neutrophils % 71.3 %
[2017-10-24 10:31] LABS: Renal Epithelial Cells,Urine Few per hpf (None-Few)
[2017-10-24 10:49] LABS: BUN/Creatinine Ratio 23 (6-26); Blood Urea Nitrogen 29 mg/dL (8-23); Carbon Dioxide 26 mEq/L (23-29); Chloride 107 mEq/L (98-107); Glucose 83 mg/dL (70-105); Osmolality,Calculated 293 (280-300); Potassium 3.8 mEq/L (3.5-5.1); Sodium 139 mEq/L (136-145); eGFR For African Americans > 60 (> 60); eGFR For Non-African Americans 55 (> 60)
[2017-10-24] MEDS ORDERED: DEXTROSE 5 % IN WATER 50 ML PGGYBK.PRT IV STA (11:28)
[2017-10-24] MEDS ORDERED: D10% in Water 500 ML IVC ONE (11:45)
[2017-10-24] MEDS ORDERED: Naloxone 0.4 MG/ML INJ IVP PRN (13:19)
[2017-10-24] MEDS ORDERED: Acetaminophen 325 MG TABLET PO PRN (13:19)
[2017-10-24] MEDS ORDERED: Nitroglycerin 0.4 MG TAB.SUBL SL PRN (13:24)
--- NOTE | 2017-10-24 13:46 | Internal Med History&Physical ---
Date of Encounter: 10/24/17 Time of Encounter: 12:30 Assessment and Plan (1) Hypoglycemia Current visit: Yes Status: Acute Acute hypoglycemia over the past several days. Patient states his blood sugar has been low and [facility] cut his Lantus at bedtime from 66 units to 33 units yesterday. He also takes 500 mg of metformin twice a day. Reports the GE greater than 200 before bedtime last night and that he took metformin at 6 PM and 33 units of Lantus at bedtime. Daughter found patient unconscious this morning with blood sugar in the mid 30s per EMS. Will hold metformin and administer Levemir 10 units HS. Hypoglycemic protocol. Communication order to monitor pt. for signs of hypo/hyperglycemia. Concern is for mgmt of blood glucose post-discharge to avoid further hypoglycemic episodes. Pt. discussed w/Dr. Mcneill who is in agreement w/plan of care. Pt. is high risk for further morbidity d/t uncontrolled BG, current sx and unconscious status this morning, hx, and risk factors. Observation. (2) KALIE (acute kidney injury) Current visit: Yes Status: Acute KALIE w/GFR of 55 on admission. Creatinine currently 1.26. We will use IV fluids judiciously if warranted. Avoid nephrotoxins. Monitor I&O. (3) HTN (hypertension) Current visit: Yes Status: Chronic Hx of chronic HTN. Monitor patient and vital signs. Continue patient's amlodipine, Imdur, and lisinopril. Qualifiers: Hypertension type: essential hypertension Qualified Code(s): I10 - Essential (primary) hypertension (4) HLD (hyperlipidemia) Current visit: Yes Status: Chronic Hx of chronic HLD. Lipid panel in a.m. labs. Continue patient's Lipitor. Qualifiers: Hyperlipidemia type: pure hypercholesterolemia Qualified Code(s): E78.00 - Pure hypercholesterolemia, unspecified; E78.0 - Pure hypercholesterolemia (5) Anemia Current visit: Yes Status: Chronic Hx of chronic anemia r/t blood loss from GI bleed. Hgb 9.8 and Hct 31.2 on admission, down from 11.0 and 34.9 on 09/17/17. Pt. denies unusual bleeding or blood in stool. Continue pts. iron PO. Monitor H/H in a.m. labs. Bilateral SCDs on LEs for DVT prophylaxis. Qualifiers: Anemia type: iron deficiency Iron deficiency anemia type: unspecified iron deficiency Qualified Code(s): D50.9 - Iron deficiency anemia, unspecified (6) CAD (coronary artery disease), [place] coronary artery Current visit: Yes Status: Chronic Hx of chronic CAD. Continue patient's aspirin therapy, Lipitor, Imdur, lisinopril, and amlodipine. Qualifiers: [place] vs. transplanted heart: [place] heart Associated angina: without angina Qualified Code(s): I25.10 - Atherosclerotic heart disease of [place] coronary artery without angina pectoris (7) Type 2 diabetes mellitus Current visit: Yes Status: Chronic Hx of chronic diabetes controlled with metformin and Lantus at bedtime. Patient reports hypoglycemic episodes over the past several [facility] dosage from 66 units at bedtime to 33 units at bedtime yesterday. Pt. reports BG was >200 before bedtime and that he took metformin at 6 p.m. and 33 units of Lantus HS. Pts. daughter found him unconscious this morning w/BG in 30s. Will hold metformin and administer Levemir 10 units HS. BG checks Q3HR. A1c in a.m. labs. Communication order to monitor pt. closely. Qualifiers: Diabetes mellitus complication status: with neurologic complications Diabetes mellitus complication detail: with polyneuropathy Diabetes mellitus long-term insulin use: unspecified re dye hand insulin use status Qualified Code (s): E11.42 - Type 2 diabetes mellitus with diabetic polyneuropathy (8) Anxiety and depression Current visit: Yes Status: Chronic Hx of chronic anxiety and depression. Continue patient's Zoloft. (9) Dementia Current visit: Yes Status: Chronic Hx of chronic dementia w/o behavioral changes. Continue patient's Namenda. Qualifiers: Dementia type: unspecified type Dementia behavioral disturbance: without behavioral disturbance Qualified Code(s): F03.90 - Unspecified dementia without behavioral disturbance (10) GERD (gastroesophageal reflux disease) Current visit: Yes Status: Chronic Hx of chronic GERD. IVP Zofran 4 mg Q8 for N/V. Prilosec 20 mg PO 0630. Qualifiers: Esophagitis presence: esophagitis presence not specified Qualified Code(s) : K21.9 - Gastro-esophageal reflux disease without esophagitis (11) DVT prophylaxis Current visit: Yes Status: Acute Bilateral SCDs on patient's lower extremities for DVT prophylaxis due to history of GI bleeding. Internal Medicine - H&P: HPI Chief complaint: Low blood sugar Admitted From: Emergency Dept Plans for Post Hospital Care: Home History of present illness: Mr. Hoffmann is a 82 year old male with medical hx of arthritis, asthma, CAD, DVT in left leg many years ago, dementia, diabetes controlled with insulin and oral medications, fibromyalgia, GERD, GI bleed, HLD, HTN, osteoporosis, see KD, and venous stasis presents from the ED with chief complaint of low blood sugar over the past several days. Patient reports his blood sugar was greater than 200 prior to going to bed last night. Reports he took metformin at 6 PM and 33 units of Lantus at bedtime and also found by daughter this morning unconscious with blood glucose in the 30s per EMS. Pt. states his [facility] is managed [facility] and he has had lowe blood sugar recently. Reports [facility] cut his Lantus from 66 units to 33 units yesterday. Patient reports numbness and tingling in bilateral LEs d/t neuropathy but denies recent illness, fever, chills, nausea, vomiting, changes in vision, headache, cough, shortness of breath, chest pain, palpitations, abdominal pain, diarrhea, constipation, dizziness, lightheadedness , pre-syncope, or syncope. Past Med Surg Social Fam HX - Past Medical History Source: patient, old records reviewed Medical history: arthritis, asthma, coronary artery disease, DVT (Left leg many years ago), dementia, diabetes, fibromyalgia, GERD, GI bleed, hyperlipidemia, hypertension, osteoporosis, renal disease, venous stasis, other Psychiatric history: anxiety, depression, other - Past Surgical History Surgical History: appendectomy, arthroscopy, herniorrhaphy, orthopedic, other ( Left wrist), other - Social History Smoking Status: Former smoker Packs per day: 2 PPD - Reports quitting 50 years ago Smokeless Tobacco Status: No Alcohol use: none Drug use: none Current living situation: Home, With Family (Family stays with pt. when he is not feeling well) Activity Level: Uses cane/walker, Wheelchair bound (Uses scooter when he's too weak to use a walker) Recent Out of Country Travel Within the Last 8 Weeks: No Exposure or Possible Exposure to Illness During Travel: No - Family History Father Race: Family Member Ethnicity: Non- Living Status: Age at : 30 Cause of : Accident/Bar fight Mother Race: Family Member Ethnicity: Non- Living Status: Age at : 96 Cause of : Old age Brother Race: Family Member Ethnicity: Non- Living Status: Age at : 62 Cause of : EtOH abuse Hx Family Psychosocial Disorders: Yes (EtOH abuse) Sister History Unknown: Yes Race: Family Member Ethnicity: Non- Living Status: Still Living Internal Medicine - H&P: Meds Amlodipine Besylate 10 mg PO DAILY 09/27/16 [History] Aspirin 81 mg PO DAILY 09/27/16 [History] Atorvastatin Calcium [Lipitor] 80 mg PO HS 07/10/17 [History] Calcium Carbonate [Calcium] 600 mg PO BID 07/10/17 [History] Cholecalciferol (D-3) [Vitamin D] 2,000 unit PO DAILY 07/10/17 [History] Cyclobenzaprine [Flexeril] 10 mg PO TID PRN 07/10/17 [History] Ferrous Sulfate [Iron] 325 mg PO TID 07/10/17 [History] Furosemide [Lasix] 40 mg PO BID 07/10/17 [History] Isosorbide MONOnitrate (24 HR) [Imdur] 60 mg PO DAILY 07/10/17 [History] Lisinopril [Zestril] 10 mg PO DAILY 07/10/17 [History] Nitroglycerin [Nitrostat] 0.4 mg SL Q5M PRN 07/10/17 [History] Sertraline [Zoloft] 50 mg PO DAILY 07/10/17 [History] metFORMIN [Glucophage] 500 mg PO BIDWM 07/10/17 [History] predniSONE [PredniSONE] 3 mg PO DAILY 07/10/17 [History] 3 Allergy/AdvReac Type Severity Reaction Status Date / Time colchicine Allergy Difficulty Verified 10/22/17 13:59 Breathing gabapentin Allergy Difficulty Verified 10/22/17 13:59 Breathing griseofulvin Allergy Difficulty Verified 10/22/17 13:59 Breathing methocarbamol Allergy Difficulty Verified 10/22/17 13:59 Breathing pregabalin [From Lyrica] Allergy Difficulty Verified 10/22/17 13:59 Breathing sulfamethoxazole Allergy Difficulty Verified 10/22/17 13:59 [From Bactrim] Breathing trimethoprim [From Bactrim] Allergy Difficulty Verified 10/22/17 13:59 Breathing acarbose AdvReac Difficulty Verified 10/22/17 13:59 Breathing IV CONTRAST Allergy Difficulty Uncoded 10/22/17 13:59 Breathing All Systems PM: A 10-system review of systems was performed and is negative for pertinent findings except as documented above in the HPI. - Constitutional Constitutional: as per HPI, weakness (Bilateral LEs), no chills, no fever(s), no night sweats - EENT Eyes: no change in vision, no discharge, no pain, no photophobia Ears: no ear discharge, no ear pain, no tinnitus Nose, mouth and throat: no dysphagia, no nasal discharge, no neck pain, no sore throat - Breasts Breasts: as per HPI - Cardiovascular Cardiovascular ROS IM: no chest pain, no diaphoresis, no dyspnea, no lightheadedness, no palpitations, no syncope - Respiratory Respiratory: no cough, no dyspnea, no wheezing, no excessive phlegm production - Gastrointestinal Gastrointestinal: no abdominal pain, no diarrhea, no hematemesis, no hematochezia, no melena, no nausea, no vomiting - Genitourinary Genitourinary ROS male: as per HPI - Musculoskeletal Musculoskeletal ROS IM: no numbness, no tingling - Integumentary Integumentary IM: no rash, no unusual bruising - Neurological Neurological ROS: no confusion, no convulsions, no focal weakness, no numbness, no tingling, no tremor(s) - Psychiatric Psychiatric: as per HPI - Endocrine Endocrine IM: as per HPI, other (Hypoglycemia resulting in AMS and LOC) - Hematologic/Lymphatic Hematologic/Lymphatic: no easy bruising - Allergic/Immunologic Allergic/Immunologic: as per HPI - Constitutional Vitals: Temp Pulse Resp BP Pulse Ox 98.2 F 78 18 144/98 98 10/24/17 09:24 10/24/17 11:21 10/24/17 11:21 10/24/17 11:21 10/24/17 11:21 General appearance: Present: cooperative, A&O X 3, pleasant, no acute distress, obese, answers questions appropriately - Head Head exam: Present: atraumatic, normocephalic - Eye Eye exam: Present: PERRL, conjuntiva pink, sclera anicteric Pupils: Present: PERRL - ENT ENT exam: Present: normal exam - Neck Neck exam general surgery: Present: normal inspection - Respiratory Respiratory exam: Present: CTAB. Absent: accessory muscle use, rales, rhonchi, wheezes - Cardiovascular Cardiovascular exam: Present: RRR, +S1, +S2. Absent: diastolic murmur, gallop, rubs, systolic murmur - GI/Abdominal GI/Abdominal exam: Present: normal bowel sounds, soft, no peritoneal signs. Absent: distended, tenderness - Rectal Rectal exam: Present: deferred - Additional comments: exam deferred. - Extremities Exam Extremities exam: Present: warm, radial pulses palpable and symmetrical. Absent : calf tenderness, cyanotic, pedal edema - Back Exam Back exam: Present: normal inspection - Neurological Exam Neurological exam: Present: alert, CN II-XII intact, oriented X3, no focal deficits. Absent: pronater drift, facial droop, speech deficit - Psychiatric Psychiatric exam: Present: normal affect, normal mood - Skin Skin exam: Present: dry, intact Internal Med - H&P Results - Labs CBC & Chem 7: 10/24/17 09:57 10/24/17 09:57 - EKG Data EKG shows normal: sinus rhythm - EKG Data Prior EKG available for review: yes EKG comments: 10/24/17 13:52 EKG dated 09/27/16 shows sinus tachycardia with PACs and interventricular conduction delay. EKG dated 10/24/17 shows sinus rhythm with right bundle branch block. - Diagnostic Studies Chest x-ray Additional comments: Impressions Chest X-Ray 10/24/17 09:21 IMPRESSION: 1. No convincing acute cardiopulmonary abnormality. 2. There appears to be mild rightward shift of the mediastinum, which appears unchanged. 3. Minimal bibasilar scarring/atelectasis. D/ / Rolando Rocha MD / Rolando Rocha MD Interpreting Provider: Rolando Rocha MD
[2017-10-24] MEDS ORDERED: D5% in Water 1,000 ML IVC PRN (13:56)
[2017-10-24] MEDS ORDERED: Dextrose Gel 15 GM/37.5 ML TUBE PO PRN ×2 (13:56)
[2017-10-24] MEDS ORDERED: *HR* Dextrose 50 % in Water (Syg) 50 ML SYRINGE IVP PRN (13:56)
[2017-10-24] MEDS ORDERED: Ondansetron 4 MG/2 ML VIAL IVP PRN (14:08)
[2017-10-24] MEDS: Furosemide 40 MG TABLET PO SCH (17:09)
--- NOTE | 2017-10-24 20:46 | Event Note ---
Date of Encounter: 10/24/17 Time of Encounter: 18:00 Discussed with LADAN and agree with assessment and plan Will decrease his basal insulin due to repeat episodes of hypoglycemia. Patient will need to follow up with primary care provider for continued adjustment and monitoring
[2017-10-24] MEDS ORDERED: Insulin DETEMIR 100 UNIT/ML X5UNITS SQ SCH (21:00)
[2017-10-25 03:42] VITALS: BP 123/69
[2017-10-25 04:58] LABS: Basophils # 0.1 K/mcL (0.0-0.2); Basophils % 0.5 %; Eosinophils # 0.5 K/mcL (0.0-0.6); Eosinophils % 4.6 %; Hematocrit 32.7 % (37.5-50.1); Hemoglobin 10.2 g/dL (12.9-16.9); Immature Granulocytes % 1.1 % (0-4); Lymphocytes # 2.2 K/mcL (0.6-4.6); Lymphocytes % 21.4 %; Mean Corpuscular HGB Conc 31.2 g/dL (31.6-35.5); Mean Corpuscular Hemoglobin 27.6 pg (28.0-33.3); Mean Corpuscular Volume 88.4 fL (83.0-100.0); Monocytes # 0.6 K/mcL (0.0-1.3); Monocytes % 5.8 %; Neutrophils # 6.9 K/mcL (1.6-8.9); Nucleated Red Blood Cells 0.4 /100 WBC (0); Platelet Count 371 K/mcL (140-400); Red Cell Distribution Width 15.9 % (11.5-14.5); Segmented Neutrophils % 66.6 %
[2017-10-25 05:04] LABS: Hemoglobin A1C 6.1 %
[2017-10-25 05:26] LABS: Alanine Aminotransferase 12 Units/L (7-52); Albumin 3.3 g/dL (3.5-5.7); Albumin/Globulin Ratio 1.1 (1.1-2.2); Alkaline Phosphatase 70 Units/L (34-104); Aspartate Amino Transferase 18 Units/L (13-39); BUN/Creatinine Ratio 20 (6-26); Bilirubin,Total 0.3 mg/dL (0.3-1.0); Blood Urea Nitrogen 22 mg/dL (8-23); Calcium 9.2 mg/dL (8.6-10.3); Carbon Dioxide 27 mEq/L (23-29); Chloride 106 mEq/L (98-107); Chol/HDL Ratio 4.2 (0-4.9); Cholesterol 144 mg/dL (< 200); Glucose 151 mg/dL (70-105); HDL Cholesterol 34 mg/dL (40-59); LDL Cholesterol,Calculated 90 mg/dL (0-99); Magnesium 1.8 mg/dL (1.6-2.6); Osmolality,Calculated 292 (280-300); Potassium 3.8 mEq/L (3.5-5.1); Sodium 138 mEq/L (136-145); Total Protein 6.3 g/dL (6.4-8.9); Triglycerides 102 mg/dL (< 150); eGFR For African Americans > 60 (> 60); eGFR For Non-African Americans > 60 (> 60)
[2017-10-25] MEDS ORDERED: amLODIPine 5 MG TABLET PO SCH (09:00)
[2017-10-25] MEDS ORDERED: Isosorbide MONOnitrate (24 HR) 60 MG TAB.ER.24H PO SCH (09:00)
[2017-10-25] MEDS ORDERED: predniSONE 1 MG TABLET PO SCH (09:00)
[2017-10-25] MEDS ORDERED: Cholecalciferol (D-3) 1,000 UNIT TABLET PO SCH (09:00)
[2017-10-25] MEDS ORDERED: Aspirin 81 MG TAB.CHEW PO SCH (09:00)
[2017-10-25] MEDS: Furosemide 40 MG TABLET PO SCH (09:08)
--- NOTE | 2017-10-25 09:24 | Discharge Summary ---
Date of Encounter: 10/25/17 Time of Encounter: 09:16 - Discharge Diagnosis (1) Hypoglycemia Priority: Primary Status: Acute Comments: Severe hypoglycemia (2) Dementia Priority: Secondary Status: Chronic Qualifiers: Dementia type: unspecified type Dementia behavioral disturbance: without behavioral disturbance Qualified Code(s): F03.90 - Unspecified dementia without behavioral disturbance (3) HLD (hyperlipidemia) Priority: Secondary Status: Chronic Qualifiers: Hyperlipidemia type: pure hypercholesterolemia Qualified Code(s): E78.00 - Pure hypercholesterolemia, unspecified; E78.0 - Pure hypercholesterolemia (4) HTN (hypertension) Priority: Secondary Status: Chronic Qualifiers: Hypertension type: essential hypertension Qualified Code(s): I10 - Essential (primary) hypertension (5) Type 2 diabetes mellitus Priority: Secondary Status: Chronic Qualifiers: Diabetes mellitus complication status: with neurologic complications Diabetes mellitus complication detail: with polyneuropathy Diabetes mellitus fci insulin use: 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 Qualified Code (s): E11.42 - Type 2 diabetes mellitus with diabetic polyneuropathy (6) History of DVT (deep vein thrombosis) Priority: Secondary Status: Chronic (7) Obesity (BMI 30-39.9) Priority: Secondary Status: Chronic - Discharge Medications Prescriptions: Insulin Glargine [Lantus] 10 unit SQ BID 30 Days mls Warfarin [Coumadin] 5 mg PO 1800 #30 tablet Home Medications: Amlodipine Besylate 10 mg PO DAILY 09/27/16 [History] Aspirin 81 mg PO DAILY 09/27/16 [History] Atorvastatin Calcium [Lipitor] 80 mg PO HS 07/10/17 [History] Calcium Carbonate [Calcium] 600 mg PO BID 07/10/17 [History] Cholecalciferol (D-3) [Vitamin D] 2,000 unit PO DAILY 07/10/17 [History] Cyclobenzaprine [Flexeril] 10 mg PO TID PRN 07/10/17 [History] Ferrous Sulfate [Iron] 325 mg PO TID 07/10/17 [History] Furosemide [Lasix] 40 mg PO BID 07/10/17 [History] Isosorbide MONOnitrate (24 HR) [Imdur] 60 mg PO DAILY 07/10/17 [History] Lisinopril [Zestril] 10 mg PO DAILY 07/10/17 [History] Nitroglycerin [Nitrostat] 0.4 mg SL Q5M PRN 07/10/17 [History] Sertraline [Zoloft] 50 mg PO DAILY 07/10/17 [History] metFORMIN [Glucophage] 500 mg PO BIDWM 07/10/17 [History] predniSONE [PredniSONE] 3 mg PO DAILY 07/10/17 [History] Insulin Glargine [Lantus] 10 unit SQ BID 30 Days mls 10/25/17 [Rx] Warfarin [Coumadin] 5 mg PO 1800 #30 tablet 10/25/17 [Rx] Allergies/Adverse Reactions: 3 Allergy/AdvReac Type Severity Reaction Status Date / Time colchicine Allergy Difficulty Verified 10/22/17 13:59 Breathing gabapentin Allergy Difficulty Verified 10/22/17 13:59 Breathing griseofulvin Allergy Difficulty Verified 10/22/17 13:59 Breathing methocarbamol Allergy Difficulty Verified 10/22/17 13:59 Breathing pregabalin [From Lyrica] Allergy Difficulty Verified 10/22/17 13:59 Breathing sulfamethoxazole Allergy Difficulty Verified 10/22/17 13:59 [From Bactrim] Breathing trimethoprim [From Bactrim] Allergy Difficulty Verified 10/22/17 13:59 Breathing acarbose AdvReac Difficulty Verified 10/22/17 13:59 Breathing IV CONTRAST Allergy Difficulty Uncoded 10/22/17 13:59 Breathing Date of admission: 10/24/17 11:52 Primary care physician: [facility] Consults: 10/24/17 13:21 Consult to Operations Specialist [CONS] Routine Reason for SW Consult: Please assess patient for possible home needs for post -discharge planning 10/24/17 13:22 Consult to Occupational Therapy [CONS] Routine Comment: Evaluate, develop and implement POC Reason for Consult: Patient reports difficulty with ambulation due to bilateral neuropathy, even with walker. Please assess patient for ambulation strength, safety, stability, and possible home assistive needs for post-discharge planning. 10/24/17 13:23 Consult to Physical Therapy [CONS] Routine Comment: Evaluate, develop and implement POC Reason for Consult: Patient reports difficulty with ambulation due to bilateral neuropathy, even with walker. Please assess patient for ambulation strength, safety, stability, and possible home assistive needs for post-discharge planning. - Patient Status Disposition: Home, Self-Care Condition: Good Overall status at discharge: patient is progressing back to baseline - Discharge Instructions Instructions: Warfarin (By mouth), Insulin Glargine (Injection), Diabetic Hypoglycemia (GEN), Chronic Hypertension (GEN) [facility] [Primary Care Provider] - Forms: ED Satisfaction Letter Additional Instructions: [facility]. Hold metformin for the next 2 days, decrease Lantus down to 10 units twice a day. - Diet and Activity Activity: increase activity as tolerated Diet: diabetic diet Hospital course: Mr. Hoffmann is a 82 year old male with medical hx of arthritis, asthma, CAD, DVT in left leg many years ago on warfarin, dementia, diabetes controlled with insulin and oral medications, fibromyalgia, GERD, GI bleed, HLD, HTN, osteoporosis, CKD3, and venous stasis presented from the ED with chief complaint of low blood sugar over the past several days. Patient reported his blood sugar was greater than 200 prior to going to bed the night before his admission. Reported he took metformin at 6 PM and 33 units of Lantus at bedtime and also found by daughter this morning unconscious with blood glucose in the 30s per EMS. Pt. stated his diabetes is managed at the [facility] and he has had low blood sugars recently. Reports [facility] 66 units to 33 units. Patient reported numbness and tingling in bilateral LEs d/t neuropathy but denied recent illness, fever, chills, nausea, vomiting, changes in vision, headache, cough, shortness of breath, chest pain, palpitations, abdominal pain, diarrhea, constipation, dizziness, lightheadedness, pre-syncope, or syncope. She was given D10 and his insulin was switched to 10 units at night. He was given the option to stay another day but prefers to go home. We will send him on Lantus 10 units twice a day, he will hold 1 dose if his sugars drop below 100. INR is therapeutic at 2.8 - Time Spent with Patient Total time spent providing and/or coordinating discharge services: Greater than 30 minutes (40 min) - Constitutional Vitals: Temp Pulse Resp BP Pulse Ox 99.4 F 90 18 123/69 96 10/25/17 03:37 10/25/17 03:37 10/25/17 03:37 10/25/17 03:37 10/25/17 03:37 General appearance: Present: cooperative, A&O X 3, pleasant, no acute distress, obese, answers questions appropriately - Head Head exam: Present: atraumatic, normocephalic - Eye Eye exam: Present: PERRL, conjuntiva pink, sclera anicteric Pupils: Present: PERRL - Neck Neck exam general surgery: Present: supple, trachea midline. Absent: lymphadenopathy - Respiratory Respiratory exam: Present: CTAB. Absent: accessory muscle use, rales, rhonchi, wheezes - Cardiovascular Cardiovascular exam: Present: RRR, +S1, +S2. Absent: diastolic murmur, gallop, rubs, systolic murmur - GI/Abdominal GI/Abdominal exam: Present: normal bowel sounds, soft, no peritoneal signs. Absent: distended, tenderness - Extremities Exam Extremities exam: Present: warm, radial pulses palpable and symmetrical. Absent : calf tenderness, cyanotic, pedal edema - Neurological Exam Neurological exam: Present: CN II-XII intact, oriented X3, no focal deficits. Absent: pronater drift, facial droop, speech deficit - Skin Skin exam: Present: dry, intact
--- NOTE | 2017-10-25 09:31 | Physician Discharge Referral ---
Home Health/Hosp Referral Info Transfer to: Home Health Provider in Charge Post Discharge: PCP - Diagnosis (1) Hypoglycemia Status: Acute (2) Dementia Status: Chronic (3) HLD (hyperlipidemia) Status: Chronic (4) HTN (hypertension) Status: Chronic (5) Type 2 diabetes mellitus Status: Chronic (6) History of DVT (deep vein thrombosis) Status: Chronic (7) Obesity (BMI 30-39.9) Status: Chronic - Respiratory Orders Smoking Cessation: Smoking cessation has been advised. For more information, call the [place] Tobacco Quit Line at 5-588-ZGBM-NOW. - Services Needed Following services are medically necessary services: Home Health Aide, Physical Therapy, Occupational Therapy [facility] Care Orders: [facility] Hold metformin for the next 2 days, decrease Lantus down to 10 units twice a day. - Transfer Medications Prescriptions: Insulin Glargine [Lantus] 10 unit SQ BID 30 Days mls Warfarin [Coumadin] 5 mg PO 1800 #30 tablet Home Medications: Amlodipine Besylate 10 mg PO DAILY 09/27/16 [History] Aspirin 81 mg PO DAILY 09/27/16 [History] Atorvastatin Calcium [Lipitor] 80 mg PO HS 07/10/17 [History] Calcium Carbonate [Calcium] 600 mg PO BID 07/10/17 [History] Cholecalciferol (D-3) [Vitamin D] 2,000 unit PO DAILY 07/10/17 [History] Cyclobenzaprine [Flexeril] 10 mg PO TID PRN 07/10/17 [History] Ferrous Sulfate [Iron] 325 mg PO TID 07/10/17 [History] Furosemide [Lasix] 40 mg PO BID 07/10/17 [History] Isosorbide MONOnitrate (24 HR) [Imdur] 60 mg PO DAILY 07/10/17 [History] Lisinopril [Zestril] 10 mg PO DAILY 07/10/17 [History] Nitroglycerin [Nitrostat] 0.4 mg SL Q5M PRN 07/10/17 [History] Sertraline [Zoloft] 50 mg PO DAILY 07/10/17 [History] metFORMIN [Glucophage] 500 mg PO BIDWM 07/10/17 [History] predniSONE [PredniSONE] 3 mg PO DAILY 07/10/17 [History] Insulin Glargine [Lantus] 10 unit SQ BID 30 Days mls 10/25/17 [Rx] Warfarin [Coumadin] 5 mg PO 1800 #30 tablet 10/25/17 [Rx] Allergies/Adverse Reactions: 3 Allergy/AdvReac Type Severity Reaction Status Date / Time colchicine Allergy Difficulty Verified 10/22/17 13:59 Breathing gabapentin Allergy Difficulty Verified 10/22/17 13:59 Breathing griseofulvin Allergy Difficulty Verified 10/22/17 13:59 Breathing methocarbamol Allergy Difficulty Verified 10/22/17 13:59 Breathing pregabalin [From Lyrica] Allergy Difficulty Verified 10/22/17 13:59 Breathing sulfamethoxazole Allergy Difficulty Verified 10/22/17 13:59 [From Bactrim] Breathing trimethoprim [From Bactrim] Allergy Difficulty Verified 10/22/17 13:59 Breathing acarbose AdvReac Difficulty Verified 10/22/17 13:59 Breathing IV CONTRAST Allergy Difficulty Uncoded 10/22/17 13:59 Breathing Certification: Further, I certify that my clinical findings support that this patient is homebound (i.e. absences from home require considerable and taxing effort and are for medical reasons or druze services or infrequently or short duration when for other reasons) because: Homebound Reason: Patient requires assistance of a person or device to safely leave home Attestation: My signature below is to certify that this patient is under my care and that I, or nurse practitioner, or a physician's pediatric dental assistant working with me, has a face-to -face encounter with this patient.
[2017-10-25 09:54] LABS: INR 2.8
--- NOTE | 2017-10-26 10:21 | Electrocardiograph Report ---
[place] [id number] Test Date: 2017-10-24 Pat Name: Mt Hoffmann Department: 104 Room: 3A31 Gender: M Qa Specialist: GREGORY : [id number] Requested By: Kelly See Order Number: [id number] Reading MD: Ashli Elias Measurements Intervals [place] Rate: 62 P: 55 AR: 193 QRS: 10 QRSD: 146 T: 27 QT: 445 QTc: 450 Interpretive Statements SINUS RHYTHM RIGHT BUNDLE BRANCH BLOCK [120+ ms QRS DURATION, UPRIGHT V1, 40+ ms S IN I/aVL/V4/V5/V6] Electronically Signed On 10-26-2017 10:19:03 EST by Ashli Elias
== END 2017-10-25 13:38 | disposition home or self-care (01) ==
LOC: 3ANU 09:12 → EMEROO 09:12 → 3ANU 12:27
PROVIDERS: ADMIT Internal Medicine Cardiovascular Disease; ATTEND Internal Medicine

== ENCOUNTER 2020-01-26 10:45 | Inpatient (IN) ==
[2020-01-26] MEDS ORDERED: Orphenadrine 60 MG/2 ML VIAL IM ONE (11:22)
[2020-01-26] MEDS ORDERED: *HR* OxyCODONE Immed Rel 5 MG TABLET PO ONE (17:23)
[2020-01-26 18:26] LABS: Basophils % 0.6 %; Eosinophils % 0.3 %; Hematocrit 37.9 % (37.5-50.1); Hemoglobin 11.8 g/dL (12.9-16.9); Immature Granulocytes % 1.9 % (0-4); Lymphocytes % 12.3 %; Mean Corpuscular HGB Conc 31.1 g/dL (31.6-35.5); Mean Corpuscular Hemoglobin 27.4 pg (28.0-33.3); Mean Corpuscular Volume 87.9 fL (83.0-100.0); Mean Platelet Volume 9.1 fL (9.4-12.4); Monocytes % 8.2 %; Platelet Count 313 K/mcL (140-400); Red Blood Count 4.31 M/mcL (4.19-5.50); Red Cell Distribution Width 14.9 % (11.5-14.5); Segmented Neutrophils % 76.7 %; White Blood Count 15.7 K/mcL (4.3-11.1)
[2020-01-26 18:27] LABS: Bilirubin,Urine Negative (Negative); Blood,Urine Small (Negative); Clarity,Urine Cloudy (Clear); Color,Urine Yellow (Yellow); Glucose,Urine (UA) 100 mg/dL (Normal); Ketones,Urine Negative (Negative); Leukocyte Esterase,Urine Negative (Negative); Nitrite,Urine Negative (Negative); Protein,Urine >=300 mg/dL (Neg-Trace); Urobilinogen,Urine Normal (Normal)
[2020-01-26 18:27] LABS: Basophils # 0.1 K/mcL (0.0-0.2); Eosinophils # 0.1 K/mcL (0.0-0.6); Lymphocytes # 1.9 K/mcL (0.6-4.6); Monocytes # 1.3 K/mcL (0.0-1.3)
[2020-01-26] MEDS ORDERED: 0.9 % Sodium Chloride 1,000 ML ONE (18:27)
[2020-01-26 18:29] LABS: Bacteria,Urine None Seen per hpf (None-Few); Hyaline Casts,Urine None Seen per lpf (None-Few); Squamous Epithelial Cell,Urine Many per lpf (None-Few); WBC,Urine 0-3 per hpf (0-3)
[2020-01-26] MEDS ORDERED: 0.9 % Sodium Chloride 1,000 ML IVC ONE (18:35)
[2020-01-26 18:37] LABS: Activated Partial Thrombo Time 77.1 Seconds (26.0-36.0)
[2020-01-26 18:44] LABS: INR 10.8; Prothrombin Time 123.6 Seconds (9.4-12.1)
[2020-01-26] MEDS ORDERED: *HR* Phytonadione 10 MG/ML AMPUL SQ ONE (18:45)
[2020-01-26 18:47] LABS: RBC,Urine 0-3 per hpf (0-3)
[2020-01-26 18:47] LABS: Potassium 3.9 mEq/L (3.5-5.1)
[2020-01-26 18:52] LABS: Troponin I 0.06 ng/mL (< 0.04)
[2020-01-26] MEDS ORDERED: *HR* Phytonadione 5 MG TABLET PO ONE (19:03)
[2020-01-26] MEDS ORDERED: Naloxone 0.4 MG/ML INJ IVP PRN (23:30)
[2020-01-27 01:06] LABS: Basophils # 0.1 K/mcL (0.0-0.2); Basophils % 0.6 %; Eosinophils # 0.1 K/mcL (0.0-0.6); Eosinophils % 0.7 %; Hematocrit 34.8 % (37.5-50.1); Immature Granulocytes % 1.6 % (0-4); Lymphocytes # 2.3 K/mcL (0.6-4.6); Lymphocytes % 17.5 %; Mean Corpuscular HGB Conc 31.6 g/dL (31.6-35.5); Mean Corpuscular Hemoglobin 27.9 pg (28.0-33.3); Mean Corpuscular Volume 88.3 fL (83.0-100.0); Mean Platelet Volume 9.3 fL (9.4-12.4); Monocytes # 1.3 K/mcL (0.0-1.3); Monocytes % 9.7 %; Platelet Count 299 K/mcL (140-400); Red Blood Count 3.94 M/mcL (4.19-5.50); Red Cell Distribution Width 15.1 % (11.5-14.5); Segmented Neutrophils % 69.9 %; White Blood Count 12.9 K/mcL (4.3-11.1)
[2020-01-27 01:10] LABS: Activated Partial Thrombo Time 79.5 Seconds (26.0-36.0)
[2020-01-27 01:18] LABS: Prothrombin Time 125.8 Seconds (9.4-12.1)
[2020-01-27 01:26] LABS: Albumin 3.2 g/dL (3.5-5.7); Albumin/Globulin Ratio 0.8 (1.1-2.2); Bilirubin,Total 0.6 mg/dL (0.3-1.0); Calcium 8.8 mg/dL (8.6-10.3); Globulin 3.8 g/dL (2.4-3.5); Potassium 3.7 mEq/L (3.5-5.1)
[2020-01-27] MEDS ORDERED: *HR* Metoprolol 5 MG/5 ML VIAL IVP ONE (02:15)
[2020-01-27] MEDS ORDERED: HUM PROTHROMBIN CPLX(PCC)4FACT 5,000 UNIT in Water for inj. (sterile) 200 ML IVPB ONE ×2 (03:19→04:00)
[2020-01-27] MEDS ORDERED: Sennosides 8.6 MG TABLET PO PRN (03:21)
[2020-01-27] MEDS ORDERED: Nitroglycerin 0.4 MG TAB.SUBL SL PRN (03:21)
[2020-01-27] MEDS ORDERED: D5% in Water 1,000 ML IVC PRN (03:25)
[2020-01-27] MEDS ORDERED: Dextrose Gel 15 GM/37.5 ML TUBE PO PRN ×2 (03:25)
[2020-01-27] MEDS ORDERED: *HR* Dextrose 50 % in Water (Syg) 50 ML SYRINGE IVP PRN (03:25)
[2020-01-27] MEDS ORDERED: Furosemide 40 MG/4 ML VIAL IVP ONE (03:45)
[2020-01-27] MEDS: Nystatin SUSP 5 ML UD.LIQ PO SCH ×5 (04:43→20:44)
[2020-01-27] MEDS: *HR* HYDROcodone/Acet 5/325 mg TABLET PO PRN (06:44)
[2020-01-27] MEDS ORDERED: *HR* Phytonadione 10 MG/ML AMPUL SQ ONE (08:31)
[2020-01-27] MEDS ORDERED: Furosemide 40 MG TABLET PO SCH (09:00)
[2020-01-27] MEDS: Insulin LISPRO 300 UNITS/3 ML VIAL SQ SCH ×3 (09:01→18:13)
[2020-01-27 09:18] LABS: INR 1.5; Prothrombin Time 16.8 Seconds (9.4-12.1)
[2020-01-27] MEDS: Metoprolol XL (24 HR) Succ 50 MG TAB.ER.24H PO SCH (10:15)
[2020-01-27] MEDS: Furosemide 40 MG TABLET PO SCH ×2 (10:16→18:14)
[2020-01-27] MEDS: predniSONE 1 MG TABLET PO SCH (10:16)
[2020-01-27] MEDS: Isosorbide MONOnitrate (24 HR) 60 MG TAB.ER.24H PO SCH (10:16)
[2020-01-27] MEDS: Multivit/Ca/Min/Fe/FA 1 TAB TABLET PO SCH (10:16)
[2020-01-27] MEDS: Cholecalciferol (D-3) 1,000 UNIT (25MCG) TABLET PO SCH (10:16)
[2020-01-27] MEDS: amLODIPine 5 MG TABLET PO SCH (10:16)
[2020-01-27] MEDS: TRIAMCINOLONE ACETONIDE 0.025% TP SCH (10:17)
[2020-01-27] MEDS ORDERED: Perflutren Lipid Microsphere 1.3 ML in 0.9 % Sodium Chloride 8.7 ML IVP ONE (10:59)
[2020-01-27] MEDS: Doxycycline 100 MG in 0.9 % Sodium Chloride Mini Bag 100 ML IVPB SCH ×2 (14:54→23:44)
[2020-01-27] MEDS ORDERED: *HR* Warfarin 3 MG TABLET PO ONE (18:00)
[2020-01-27] MEDS: Warfarin perPT PO SCH (18:14)
[2020-01-27 19:11] LABS: INR 1.7; Prothrombin Time 18.9 Seconds (9.4-12.1)
[2020-01-27] MEDS: Insulin DETEMIR 100 UNIT/ML X5UNITS SQ SCH (20:45)
[2020-01-28 04:03] LABS: INR 1.5; Prothrombin Time 17.1 Seconds (9.4-12.1)
[2020-01-28] MEDS: Isosorbide MONOnitrate (24 HR) 60 MG TAB.ER.24H PO SCH (08:02)
[2020-01-28] MEDS: Furosemide 40 MG TABLET PO SCH ×2 (08:02→16:54)
[2020-01-28] MEDS: predniSONE 1 MG TABLET PO SCH (08:02)
[2020-01-28] MEDS: Cholecalciferol (D-3) 1,000 UNIT (25MCG) TABLET PO SCH (08:02)
[2020-01-28] MEDS: Nystatin SUSP 5 ML UD.LIQ PO SCH ×4 (08:03→20:34)
[2020-01-28] MEDS: amLODIPine 5 MG TABLET PO SCH (08:03)
[2020-01-28] MEDS: Insulin LISPRO 300 UNITS/3 ML VIAL SQ SCH ×3 (08:03→16:53)
[2020-01-28] MEDS: Multivit/Ca/Min/Fe/FA 1 TAB TABLET PO SCH (08:03)
[2020-01-28] MEDS: Metoprolol XL (24 HR) Succ 50 MG TAB.ER.24H PO SCH (08:03)
[2020-01-28] MEDS: TRIAMCINOLONE ACETONIDE 0.025% TP SCH (08:04)
[2020-01-28 09:08] LABS: Basophils # 0.1 K/mcL (0.0-0.2); Basophils % 0.5 %; Eosinophils # 0.1 K/mcL (0.0-0.6); Hematocrit 30.8 % (37.5-50.1); Hemoglobin 9.7 g/dL (12.9-16.9); Immature Granulocytes % 1.7 % (0-4); Lymphocytes # 2.1 K/mcL (0.6-4.6); Lymphocytes % 16.8 %; Mean Corpuscular HGB Conc 31.5 g/dL (31.6-35.5); Monocytes # 0.9 K/mcL (0.0-1.3); Monocytes % 7.5 %; Neutrophils # 8.8 K/mcL (1.6-8.9); Platelet Count 269 K/mcL (140-400); Red Blood Count 3.46 M/mcL (4.19-5.50); Red Cell Distribution Width 15.3 % (11.5-14.5); Segmented Neutrophils % 72.5 %; White Blood Count 12.2 K/mcL (4.3-11.1)
[2020-01-28 09:16] LABS: Calcium 8.7 mg/dL (8.6-10.3)
[2020-01-28] MEDS: Doxycycline 100 MG in 0.9 % Sodium Chloride Mini Bag 100 ML IVPB SCH ×2 (11:49→23:34)
[2020-01-28] MEDS ORDERED: Morphine Sulfate 2 MG/ML SYRINGE IVP ONE (12:03)
[2020-01-28] MEDS: 0.9 % Sodium Chloride 1,000 ML IVC SCH (16:54)
[2020-01-28] MEDS: *HR* Heparin 5,000 UNIT/ML VIAL SQ SCH (16:54)
[2020-01-28] MEDS: Insulin DETEMIR 100 UNIT/ML X5UNITS SQ SCH (20:34)
[2020-01-29] MEDS: *HR* Heparin 5,000 UNIT/ML VIAL SQ SCH (05:21)
[2020-01-29 06:38] LABS: Basophils # 0.1 K/mcL (0.0-0.2); Basophils % 0.6 %; Eosinophils # 0.2 K/mcL (0.0-0.6); Eosinophils % 1.6 %; Hematocrit 28.7 % (37.5-50.1); Hemoglobin 8.9 g/dL (12.9-16.9); Immature Granulocytes % 1.9 % (0-4); Lymphocytes # 1.8 K/mcL (0.6-4.6); Lymphocytes % 16.7 %; Mean Corpuscular Hemoglobin 27.7 pg (28.0-33.3); Mean Corpuscular Volume 89.4 fL (83.0-100.0); Mean Platelet Volume 9.4 fL (9.4-12.4); Monocytes # 0.8 K/mcL (0.0-1.3); Monocytes % 7.8 %; Neutrophils # 7.6 K/mcL (1.6-8.9); Platelet Count 278 K/mcL (140-400); Red Blood Count 3.21 M/mcL (4.19-5.50); Red Cell Distribution Width 15.3 % (11.5-14.5); Segmented Neutrophils % 71.4 %; White Blood Count 10.7 K/mcL (4.3-11.1)
[2020-01-29 06:54] LABS: Calcium 8.7 mg/dL (8.6-10.3); Potassium 3.7 mEq/L (3.5-5.1)
[2020-01-29] MEDS: Nystatin SUSP 5 ML UD.LIQ PO SCH ×4 (08:28→20:29)
[2020-01-29] MEDS: Metoprolol XL (24 HR) Succ 50 MG TAB.ER.24H PO SCH (08:28)
[2020-01-29] MEDS: Multivit/Ca/Min/Fe/FA 1 TAB TABLET PO SCH (08:28)
[2020-01-29] MEDS: Isosorbide MONOnitrate (24 HR) 60 MG TAB.ER.24H PO SCH (08:28)
[2020-01-29] MEDS: Cholecalciferol (D-3) 1,000 UNIT (25MCG) TABLET PO SCH (08:29)
[2020-01-29] MEDS: *HR* HYDROcodone/Acet 5/325 mg TABLET PO PRN (08:29)
[2020-01-29] MEDS: amLODIPine 5 MG TABLET PO SCH (08:29)
[2020-01-29] MEDS: Furosemide 40 MG TABLET PO SCH (08:29)
[2020-01-29] MEDS: predniSONE 1 MG TABLET PO SCH (08:29)
[2020-01-29] MEDS: 0.9 % Sodium Chloride 1,000 ML IVC SCH (08:29)
[2020-01-29] MEDS: Insulin LISPRO 300 UNITS/3 ML VIAL SQ SCH ×4 (08:30→20:41)
[2020-01-29] MEDS: TRIAMCINOLONE ACETONIDE 0.025% TP SCH (08:41)
[2020-01-29] MEDS: Doxycycline 100 MG in 0.9 % Sodium Chloride Mini Bag 100 ML IVPB SCH ×2 (12:34→23:17)
[2020-01-29] MEDS: cefTRIAXone 1,000 MG in Water for inj. (sterile) 10 ML IVP SCH (12:40)
[2020-01-29 16:21] LABS: INR 1.4; Prothrombin Time 15.8 Seconds (9.4-12.1)
[2020-01-29] MEDS ORDERED: Morphine Sulfate 2 MG/ML SYRINGE IVP ONE (17:16)
[2020-01-29] MEDS: Warfarin perPT PO SCH (17:41)
[2020-01-29] MEDS ORDERED: *HR* Warfarin 3 MG TABLET PO ONE (18:00)
[2020-01-29] MEDS: Insulin DETEMIR 100 UNIT/ML X5UNITS SQ SCH (20:29)
[2020-01-30 06:58] LABS: Basophils # 0.1 K/mcL (0.0-0.2); Basophils % 0.6 %; Eosinophils # 0.1 K/mcL (0.0-0.6); Eosinophils % 1.2 %; Hematocrit 28.8 % (37.5-50.1); Hemoglobin 9.1 g/dL (12.9-16.9); Immature Granulocytes % 2.1 % (0-4); Lymphocytes # 1.9 K/mcL (0.6-4.6); Lymphocytes % 20.2 %; Mean Corpuscular HGB Conc 31.6 g/dL (31.6-35.5); Mean Corpuscular Hemoglobin 27.7 pg (28.0-33.3); Mean Corpuscular Volume 87.8 fL (83.0-100.0); Mean Platelet Volume 8.9 fL (9.4-12.4); Monocytes # 0.4 K/mcL (0.0-1.3); Monocytes % 3.6 %; Platelet Count 281 K/mcL (140-400); Red Blood Count 3.28 M/mcL (4.19-5.50); Red Cell Distribution Width 14.9 % (11.5-14.5); Segmented Neutrophils % 72.3 %; White Blood Count 9.6 K/mcL (4.3-11.1)
[2020-01-30 07:13] LABS: INR 1.3; Prothrombin Time 14.9 Seconds (9.4-12.1)
[2020-01-30 07:22] LABS: Calcium 8.9 mg/dL (8.6-10.3); Potassium 3.7 mEq/L (3.5-5.1)
[2020-01-30] MEDS: Metoprolol XL (24 HR) Succ 50 MG TAB.ER.24H PO SCH (07:49)
[2020-01-30] MEDS: Nystatin SUSP 5 ML UD.LIQ PO SCH ×4 (07:49→21:18)
[2020-01-30] MEDS: amLODIPine 5 MG TABLET PO SCH (07:49)
[2020-01-30] MEDS: Multivit/Ca/Min/Fe/FA 1 TAB TABLET PO SCH (07:49)
[2020-01-30] MEDS: Insulin LISPRO 300 UNITS/3 ML VIAL SQ SCH ×4 (07:49→21:18)
[2020-01-30] MEDS: Cholecalciferol (D-3) 1,000 UNIT (25MCG) TABLET PO SCH (07:49)
[2020-01-30] MEDS: predniSONE 1 MG TABLET PO SCH (07:49)
[2020-01-30] MEDS: TRIAMCINOLONE ACETONIDE 0.025% TP SCH (07:50)
[2020-01-30] MEDS: cefTRIAXone 1,000 MG in Water for inj. (sterile) 10 ML IVP SCH (07:50)
[2020-01-30] MEDS: Isosorbide MONOnitrate (24 HR) 60 MG TAB.ER.24H PO SCH (07:50)
[2020-01-30] MEDS: *HR* HYDROcodone/Acet 5/325 mg TABLET PO PRN ×2 (08:05→21:18)
[2020-01-30] MEDS ORDERED: Vancomycin 2,000 MG/520 ML IV.SOLN IVPB SCH (10:00)
[2020-01-30] MEDS ORDERED: Vancomycin 1,750 MG/517.5 ML IV.SOLN IVPB ONE (10:20)
[2020-01-30] MEDS: MetroNIDAZOLE 500 MG/100 ML 500 MG/100 ML BAG IVPB SCH ×2 (10:42→18:40)
[2020-01-30] MEDS ORDERED: *HR* Warfarin 3 MG TABLET PO ONE (18:00)
[2020-01-30] MEDS: Warfarin perPT PO SCH (21:17)
[2020-01-30] MEDS: Insulin DETEMIR 100 UNIT/ML X5UNITS SQ SCH (21:20)
[2020-01-31] MEDS: MetroNIDAZOLE 500 MG/100 ML 500 MG/100 ML BAG IVPB SCH ×3 (03:24→18:41)
[2020-01-31 07:45] LABS: Basophils # 0.1 K/mcL (0.0-0.2); Basophils % 0.8 %; Eosinophils # 0.2 K/mcL (0.0-0.6); Eosinophils % 2.4 %; Hematocrit 28.2 % (37.5-50.1); Immature Granulocytes % 1.8 % (0-4); Lymphocytes # 1.5 K/mcL (0.6-4.6); Lymphocytes % 14.9 %; Mean Corpuscular HGB Conc 31.9 g/dL (31.6-35.5); Mean Corpuscular Hemoglobin 28.3 pg (28.0-33.3); Mean Corpuscular Volume 88.7 fL (83.0-100.0); Mean Platelet Volume 8.6 fL (9.4-12.4); Monocytes # 0.9 K/mcL (0.0-1.3); Monocytes % 9.2 %; Platelet Count 256 K/mcL (140-400); Red Blood Count 3.18 M/mcL (4.19-5.50); Red Cell Distribution Width 14.7 % (11.5-14.5); Segmented Neutrophils % 70.9 %; White Blood Count 9.9 K/mcL (4.3-11.1)
[2020-01-31 07:49] LABS: INR 1.5; Prothrombin Time 17.3 Seconds (9.4-12.1)
[2020-01-31 08:02] LABS: Calcium 8.9 mg/dL (8.6-10.3); Potassium 3.6 mEq/L (3.5-5.1)
[2020-01-31] MEDS: cefTRIAXone 1,000 MG in Water for inj. (sterile) 10 ML IVP SCH (08:17)
[2020-01-31] MEDS: Nystatin SUSP 5 ML UD.LIQ PO SCH ×4 (08:18→20:38)
[2020-01-31] MEDS: amLODIPine 5 MG TABLET PO SCH (08:19)
[2020-01-31] MEDS: predniSONE 1 MG TABLET PO SCH (08:20)
[2020-01-31] MEDS: *HR* HYDROcodone/Acet 5/325 mg TABLET PO PRN ×2 (08:20→17:06)
[2020-01-31] MEDS: Multivit/Ca/Min/Fe/FA 1 TAB TABLET PO SCH (08:20)
[2020-01-31] MEDS: Isosorbide MONOnitrate (24 HR) 60 MG TAB.ER.24H PO SCH (08:20)
[2020-01-31] MEDS: Cholecalciferol (D-3) 1,000 UNIT (25MCG) TABLET PO SCH (08:20)
[2020-01-31] MEDS: Insulin LISPRO 300 UNITS/3 ML VIAL SQ SCH ×4 (08:20→20:37)
[2020-01-31] MEDS: Metoprolol XL (24 HR) Succ 50 MG TAB.ER.24H PO SCH (08:20)
[2020-01-31] MEDS: TRIAMCINOLONE ACETONIDE 0.025% TP SCH (08:21)
[2020-01-31] MEDS ORDERED: Vancomycin 1,250 MG/262.5 ML IV.SOLN IVPB ONE (11:00)
[2020-01-31] MEDS: Warfarin perPT PO SCH (16:18)
[2020-01-31] MEDS ORDERED: *HR* Warfarin 7.5 MG TABLET PO ONE (18:00)
[2020-01-31] MEDS: Insulin DETEMIR 100 UNIT/ML X5UNITS SQ SCH (20:36)
[2020-02-01] MEDS: MetroNIDAZOLE 500 MG/100 ML 500 MG/100 ML BAG IVPB SCH (03:00)
[2020-02-01] MEDS: *HR* HYDROcodone/Acet 5/325 mg TABLET PO PRN ×2 (03:10→21:05)
[2020-02-01 06:35] LABS: INR 1.4; Prothrombin Time 16.4 Seconds (9.4-12.1)
[2020-02-01 06:43] LABS: Magnesium 1.9 mg/dL (1.6-2.6); Phosphorous 3.1 mg/dL (2.7-4.5)
[2020-02-01 06:45] LABS: Calcium 9.3 mg/dL (8.6-10.3); Potassium 3.7 mEq/L (3.5-5.1)
[2020-02-01 07:00] LABS: Basophils % 0.5 %; Eosinophils # 0.2 K/mcL (0.0-0.6); Eosinophils % 2.2 %; Hemoglobin 9.2 g/dL (12.9-16.9); Immature Granulocytes % 2.2 % (0-4); Immature Platelets 2.5 % (1.1-6.1); Lymphocytes # 1.3 K/mcL (0.6-4.6); Lymphocytes % 15.6 %; Mean Corpuscular HGB Conc 31.7 g/dL (31.6-35.5); Mean Corpuscular Hemoglobin 27.7 pg (28.0-33.3); Mean Corpuscular Volume 87.3 fL (83.0-100.0); Monocytes # 0.7 K/mcL (0.0-1.3); Monocytes % 8.8 %; Neutrophils # 5.7 K/mcL (1.6-8.9); Nucleated Red Blood Cells 0.2 /100 WBC (0); Platelet Count 232 K/mcL (140-400); Red Blood Count 3.32 M/mcL (4.19-5.50); Red Cell Distribution Width 15.1 % (11.5-14.5); Segmented Neutrophils % 70.7 %; White Blood Count 8.1 K/mcL (4.3-11.1)
[2020-02-01 07:09] LABS: Anisocytosis 1+ (Not Present); Hypochromasia Present (Not Present); Microcytosis Present (Not Present); Platelet Estimate Normal (Normal)
[2020-02-01] MEDS: amLODIPine 5 MG TABLET PO SCH (08:26)
[2020-02-01] MEDS: Multivit/Ca/Min/Fe/FA 1 TAB TABLET PO SCH (08:26)
[2020-02-01] MEDS: Metoprolol XL (24 HR) Succ 50 MG TAB.ER.24H PO SCH (08:26)
[2020-02-01] MEDS: predniSONE 1 MG TABLET PO SCH (08:28)
[2020-02-01] MEDS: Isosorbide MONOnitrate (24 HR) 60 MG TAB.ER.24H PO SCH (08:28)
[2020-02-01] MEDS: Cholecalciferol (D-3) 1,000 UNIT (25MCG) TABLET PO SCH (08:28)
[2020-02-01] MEDS: Nystatin SUSP 5 ML UD.LIQ PO SCH ×4 (08:29→21:04)
[2020-02-01] MEDS: cefTRIAXone 1,000 MG in Water for inj. (sterile) 10 ML IVP SCH (08:29)
[2020-02-01] MEDS: TRIAMCINOLONE ACETONIDE 0.025% TP SCH (08:41)
[2020-02-01] MEDS: Insulin LISPRO 300 UNITS/3 ML VIAL SQ SCH ×4 (08:41→21:06)
[2020-02-01] MEDS: polyethylene glycoL 3350 17 GM POWD.PACK PO PRN (09:16)
[2020-02-01] MEDS: Sennosides/Docusate Sodium TABLET PO SCH ×2 (09:32→21:05)
[2020-02-01] MEDS ORDERED: cefTRIAXone 1,000 MG in Water for inj. (sterile) 10 ML IVP ONE (11:00)
[2020-02-01] MEDS: Vancomycin 1,250 MG/262.5 ML IV.SOLN IVPB SCH (14:54)
[2020-02-01] MEDS: metroNIDAZOLE 500 MG TABLET PO SCH ×2 (14:54→21:05)
[2020-02-01] MEDS: Warfarin perPT PO SCH (16:38)
[2020-02-01] MEDS ORDERED: *HR* Warfarin 10 MG TABLET PO ONE (18:00)
[2020-02-01] MEDS: Insulin DETEMIR 100 UNIT/ML X5UNITS SQ SCH (21:05)
[2020-02-02 04:15] LABS: Basophils # 0.1 K/mcL (0.0-0.2); Eosinophils # 0.2 K/mcL (0.0-0.6); Eosinophils % 2.2 %; Hematocrit 27.5 % (37.5-50.1); Hemoglobin 8.9 g/dL (12.9-16.9); Immature Granulocytes % 2.4 % (0-4); Lymphocytes # 1.4 K/mcL (0.6-4.6); Lymphocytes % 13.7 %; Mean Corpuscular HGB Conc 32.4 g/dL (31.6-35.5); Mean Corpuscular Hemoglobin 28.3 pg (28.0-33.3); Mean Corpuscular Volume 87.3 fL (83.0-100.0); Monocytes # 0.8 K/mcL (0.0-1.3); Monocytes % 7.9 %; Neutrophils # 7.4 K/mcL (1.6-8.9); Platelet Count 283 K/mcL (140-400); Red Blood Count 3.15 M/mcL (4.19-5.50); Red Cell Distribution Width 15.1 % (11.5-14.5); Segmented Neutrophils % 72.8 %; White Blood Count 10.1 K/mcL (4.3-11.1)
[2020-02-02 04:21] LABS: INR 1.8; Prothrombin Time 20.6 Seconds (9.4-12.1)
[2020-02-02 04:37] LABS: Magnesium 1.8 mg/dL (1.6-2.6); Phosphorous 3.6 mg/dL (2.7-4.5); Potassium 3.5 mEq/L (3.5-5.1)
[2020-02-02] MEDS: Sennosides/Docusate Sodium TABLET PO SCH ×2 (09:16→22:00)
[2020-02-02] MEDS: Cholecalciferol (D-3) 1,000 UNIT (25MCG) TABLET PO SCH (09:16)
[2020-02-02] MEDS: Metoprolol XL (24 HR) Succ 50 MG TAB.ER.24H PO SCH (09:17)
[2020-02-02] MEDS: predniSONE 1 MG TABLET PO SCH (09:17)
[2020-02-02] MEDS: amLODIPine 5 MG TABLET PO SCH (09:17)
[2020-02-02] MEDS: Nystatin SUSP 5 ML UD.LIQ PO SCH ×4 (09:17→22:00)
[2020-02-02] MEDS: Multivit/Ca/Min/Fe/FA 1 TAB TABLET PO SCH (09:17)
[2020-02-02] MEDS: metroNIDAZOLE 500 MG TABLET PO SCH ×3 (09:17→21:58)
[2020-02-02] MEDS: polyethylene glycoL 3350 17 GM POWD.PACK PO PRN (09:17)
[2020-02-02] MEDS: Isosorbide MONOnitrate (24 HR) 60 MG TAB.ER.24H PO SCH (09:17)
[2020-02-02] MEDS: Insulin LISPRO 300 UNITS/3 ML VIAL SQ SCH ×4 (09:22→21:59)
[2020-02-02] MEDS: TRIAMCINOLONE ACETONIDE 0.025% TP SCH (09:27)
[2020-02-02] MEDS: cefTRIAXone 2,000 MG in Water for inj. (sterile) 20 ML IVPB SCH (09:27)
[2020-02-02] MEDS: Vancomycin 1,250 MG/262.5 ML IV.SOLN IVPB SCH (14:22)
[2020-02-02] MEDS: Warfarin perPT PO SCH (16:45)
[2020-02-02] MEDS: *HR* Heparin 5,000 UNIT/ML VIAL SQ SCH (16:45)
[2020-02-02] MEDS ORDERED: *HR* Warfarin 5 MG TABLET PO ONE (18:00)
[2020-02-02] MEDS: Insulin DETEMIR 100 UNIT/ML X5UNITS SQ SCH (22:00)
[2020-02-03 02:14] LABS: Basophils # 0.1 K/mcL (0.0-0.2); Basophils % 0.5 %; Eosinophils # 0.3 K/mcL (0.0-0.6); Eosinophils % 2.5 %; Hemoglobin 8.5 g/dL (12.9-16.9); Immature Granulocytes % 2.1 % (0-4); Lymphocytes # 1.7 K/mcL (0.6-4.6); Lymphocytes % 16.6 %; Mean Corpuscular HGB Conc 31.5 g/dL (31.6-35.5); Mean Corpuscular Hemoglobin 27.4 pg (28.0-33.3); Mean Corpuscular Volume 87.1 fL (83.0-100.0); Mean Platelet Volume 9.1 fL (9.4-12.4); Monocytes # 0.8 K/mcL (0.0-1.3); Monocytes % 7.6 %; Neutrophils # 7.3 K/mcL (1.6-8.9); Platelet Count 301 K/mcL (140-400); Red Cell Distribution Width 15.2 % (11.5-14.5); Segmented Neutrophils % 70.7 %; White Blood Count 10.3 K/mcL (4.3-11.1)
[2020-02-03 02:29] LABS: Calcium 9.2 mg/dL (8.6-10.3); Magnesium 1.8 mg/dL (1.6-2.6); Phosphorous 3.3 mg/dL (2.7-4.5); Potassium 3.5 mEq/L (3.5-5.1)
[2020-02-03 02:30] LABS: INR 2.4; Prothrombin Time 27.8 Seconds (9.4-12.1)
[2020-02-03] MEDS: *HR* Heparin 5,000 UNIT/ML VIAL SQ SCH (06:06)
[2020-02-03] MEDS: Insulin LISPRO 300 UNITS/3 ML VIAL SQ SCH ×4 (07:56→21:58)
[2020-02-03] MEDS: amLODIPine 5 MG TABLET PO SCH (07:57)
[2020-02-03] MEDS: metroNIDAZOLE 500 MG TABLET PO SCH ×3 (07:57→21:58)
[2020-02-03] MEDS: Isosorbide MONOnitrate (24 HR) 60 MG TAB.ER.24H PO SCH (07:57)
[2020-02-03] MEDS: predniSONE 1 MG TABLET PO SCH (07:57)
[2020-02-03] MEDS: cefTRIAXone 2,000 MG in Water for inj. (sterile) 20 ML IVPB SCH (07:58)
[2020-02-03] MEDS: Metoprolol XL (24 HR) Succ 50 MG TAB.ER.24H PO SCH (07:58)
[2020-02-03] MEDS: Nystatin SUSP 5 ML UD.LIQ PO SCH (07:58)
[2020-02-03] MEDS: Cholecalciferol (D-3) 1,000 UNIT (25MCG) TABLET PO SCH (07:58)
[2020-02-03] MEDS: Sennosides/Docusate Sodium TABLET PO SCH ×2 (07:58→22:00)
[2020-02-03] MEDS: Multivit/Ca/Min/Fe/FA 1 TAB TABLET PO SCH (07:58)
[2020-02-03] MEDS: TRIAMCINOLONE ACETONIDE 0.025% TP SCH (07:59)
[2020-02-03] MEDS: polyethylene glycoL 3350 17 GM POWD.PACK PO SCH (10:44)
[2020-02-03] MEDS: Vancomycin 1,250 MG/262.5 ML IV.SOLN IVPB SCH (14:25)
[2020-02-03] MEDS: Warfarin perPT PO SCH (19:32)
[2020-02-03] MEDS: Insulin DETEMIR 100 UNIT/ML X5UNITS SQ SCH (21:59)
[2020-02-03] MEDS: *HR* HYDROcodone/Acet 5/325 mg TABLET PO PRN (22:00)
[2020-02-04 01:22] LABS: Basophils # 0.1 K/mcL (0.0-0.2); Basophils % 0.7 %; Eosinophils # 0.3 K/mcL (0.0-0.6); Eosinophils % 3.2 %; Hematocrit 27.7 % (37.5-50.1); Hemoglobin 8.9 g/dL (12.9-16.9); Lymphocytes # 1.9 K/mcL (0.6-4.6); Mean Corpuscular HGB Conc 32.1 g/dL (31.6-35.5); Mean Corpuscular Hemoglobin 28.4 pg (28.0-33.3); Mean Corpuscular Volume 88.5 fL (83.0-100.0); Mean Platelet Volume 9.1 fL (9.4-12.4); Monocytes # 0.8 K/mcL (0.0-1.3); Monocytes % 7.8 %; Neutrophils # 6.6 K/mcL (1.6-8.9); Platelet Count 297 K/mcL (140-400); Red Blood Count 3.13 M/mcL (4.19-5.50); Red Cell Distribution Width 15.1 % (11.5-14.5); Segmented Neutrophils % 67.3 %; White Blood Count 9.9 K/mcL (4.3-11.1)
[2020-02-04 01:29] LABS: INR 2.6
[2020-02-04 01:46] LABS: Calcium 8.8 mg/dL (8.6-10.3); Magnesium 1.9 mg/dL (1.6-2.6); Phosphorous 2.9 mg/dL (2.7-4.5); Potassium 3.4 mEq/L (3.5-5.1)
[2020-02-04] MEDS: predniSONE 1 MG TABLET PO SCH (08:23)
[2020-02-04] MEDS: amLODIPine 5 MG TABLET PO SCH (08:24)
[2020-02-04] MEDS: Metoprolol XL (24 HR) Succ 50 MG TAB.ER.24H PO SCH (08:24)
[2020-02-04] MEDS: Multivit/Ca/Min/Fe/FA 1 TAB TABLET PO SCH (08:24)
[2020-02-04] MEDS: Sennosides/Docusate Sodium TABLET PO SCH (08:24)
[2020-02-04] MEDS: Isosorbide MONOnitrate (24 HR) 60 MG TAB.ER.24H PO SCH (08:24)
[2020-02-04] MEDS: Cholecalciferol (D-3) 1,000 UNIT (25MCG) TABLET PO SCH (08:24)
[2020-02-04] MEDS: cefTRIAXone 2,000 MG in Water for inj. (sterile) 20 ML IVPB SCH (08:24)
[2020-02-04] MEDS: metroNIDAZOLE 500 MG TABLET PO SCH ×2 (08:24→15:53)
[2020-02-04] MEDS: polyethylene glycoL 3350 17 GM POWD.PACK PO SCH (08:25)
[2020-02-04] MEDS: TRIAMCINOLONE ACETONIDE 0.025% TP SCH (08:25)
[2020-02-04] MEDS: Insulin LISPRO 300 UNITS/3 ML VIAL SQ SCH ×3 (08:26→15:55)
[2020-02-04] MEDS ORDERED: predniSONE 20 MG TABLET PO SCH (09:00)
[2020-02-04] MEDS: Vancomycin 1,250 MG/262.5 ML IV.SOLN IVPB SCH (12:25)
[2020-02-04 15:56] VITALS: BP 151/86
[2020-02-04] MEDS: *HR* HYDROcodone/Acet 5/325 mg TABLET PO PRN (16:30)
[2020-02-04] MEDS ORDERED: Aminoglycoside Consult 1 EACH MC ONE (16:34)
[2020-02-04] MEDS ORDERED: *HR* Warfarin 3 MG TABLET PO ONE (18:00)
== END 2020-02-04 16:35 | DRG 871 ==
LOC: 3BNU 10:45 → EMEROOARM 10:45 → SUATTDRO 22:58 → 3BNU 23:40 → SUATTDRO 01-29 12:52
PROVIDERS: ADMIT Internal Medicine; ATTEND Internal Medicine

== ENCOUNTER 2020-06-19 23:32 | Inpatient (IN) ==
[2020-06-20 00:37] LABS: Basophils # 0.1 K/mcL (0.0-0.2); Basophils % 0.7 %; Eosinophils # 0.2 K/mcL (0.0-0.6); Eosinophils % 2.2 %; Hematocrit 25.5 % (37.5-50.1); Hemoglobin 7.6 g/dL (12.9-16.9); Immature Granulocytes % 2.8 % (0-4); Lymphocytes # 2.4 K/mcL (0.6-4.6); Lymphocytes % 24.9 %; Mean Corpuscular HGB Conc 29.8 g/dL (31.6-35.5); Mean Corpuscular Hemoglobin 26.6 pg (28.0-33.3); Mean Corpuscular Volume 89.2 fL (83.0-100.0); Mean Platelet Volume 8.1 fL (9.4-12.4); Monocytes # 0.7 K/mcL (0.0-1.3); Neutrophils # 5.9 K/mcL (1.6-8.9); Platelet Count 241 K/mcL (140-400); Red Blood Count 2.86 M/mcL (4.19-5.50); Segmented Neutrophils % 62.4 %; White Blood Count 9.5 K/mcL (4.3-11.1)
[2020-06-20 00:56] LABS: INR 7.8; Prothrombin Time 89.4 Seconds (9.4-12.1)
[2020-06-20 01:00] LABS: Calcium 8.9 mg/dL (8.6-10.3)
[2020-06-20] MEDS ORDERED: *HR* Dextrose 50 % in Water (Vial) 50 ML VIAL IVP ONE ×3 (01:02→08:05)
[2020-06-20] MEDS ORDERED: *HR* Dextrose 50 % in Water (Vial) 50 ML VIAL IVP STA (02:18)
[2020-06-20 02:53] LABS: Albumin 3.1 g/dL (3.5-5.7); Bilirubin,Direct 0.1 mg/dL (0.0-0.2); Bilirubin,Indirect 0.2 mg/dL (0.0-1.0); Bilirubin,Total 0.3 mg/dL (0.3-1.0); Globulin 3.2 g/dL (2.4-3.5); Total Protein 6.3 g/dL (6.4-8.9)
[2020-06-20] MEDS ORDERED: *HR* Phytonadione 5 MG TABLET PO ONE (02:54)
[2020-06-20] MEDS ORDERED: Dextrose 50 % in Water (Vial) 50 ML in D5% in 0.2% NACL 500 ML IVC SCH (03:15)
[2020-06-20] MEDS ORDERED: 0.9 % Sodium Chloride 250 ML ONE (05:39)
[2020-06-20] MEDS ORDERED: Naloxone 0.4 MG/ML INJ IVP PRN ×2 (06:13→08:05)
[2020-06-20] MEDS ORDERED: *HR* Promethazine 25 MG/ML VIAL IVP PRN (06:13)
[2020-06-20] MEDS ORDERED: D5% in Water 1,000 ML IVC PRN (06:14)
[2020-06-20] MEDS ORDERED: Dextrose Gel 15 GM/37.5 ML TUBE PO PRN ×2 (06:14)
[2020-06-20] MEDS ORDERED: *HR* Dextrose 50 % in Water (Vial) 50 ML VIAL IVP PRN (06:14)
[2020-06-20] MEDS ORDERED: *HR* Phytonadione 10 MG/ML AMPUL SQ ONE (08:06)
[2020-06-20] MEDS ORDERED: Phenylephrine Nasal 0.25% 15 ML BOTTLE NS PRN (08:40)
[2020-06-20] MEDS: D10% in Water 500 ML IVC SCH ×2 (09:10→15:16)
[2020-06-20] MEDS: Insulin LISPRO 300 UNITS/3 ML VIAL SQ SCH ×3 (09:13→16:51)
[2020-06-20] MEDS ORDERED: 0.9 % Sodium Chloride 500 ML ONE (10:07)
[2020-06-20] MEDS ORDERED: *HR* HYDROcodone/Acet 5/325 mg TABLET PO PRN (10:36)
[2020-06-20] MEDS: *HR* HYDROcodone/Acet 5/325 mg TABLET PO PRN (13:26)
[2020-06-20] MEDS: Dexamethasone 4 MG/ML VIAL IVP SCH (14:52)
[2020-06-20] MEDS ORDERED: polyethylene glycoL 3350 17 GM POWD.PACK PO PRN (15:20)
[2020-06-20 16:40] LABS: Hematocrit 28.2 % (37.5-50.1); Hemoglobin 8.8 g/dL (12.9-16.9); Mean Corpuscular HGB Conc 31.2 g/dL (31.6-35.5); Mean Corpuscular Hemoglobin 27.6 pg (28.0-33.3); Mean Corpuscular Volume 88.4 fL (83.0-100.0); Mean Platelet Volume 8.3 fL (9.4-12.4); Platelet Count 249 K/mcL (140-400); Red Blood Count 3.19 M/mcL (4.19-5.50); Red Cell Distribution Width 15.6 % (11.5-14.5); White Blood Count 7.8 K/mcL (4.3-11.1)
[2020-06-20 16:49] LABS: Calcium 8.9 mg/dL (8.6-10.3); Potassium 3.9 mEq/L (3.5-5.1)
[2020-06-20 16:50] LABS: Magnesium 1.6 mg/dL (1.6-2.6); Phosphorous 3.4 mg/dL (2.7-4.5)
[2020-06-20 16:52] LABS: INR 4.5; Prothrombin Time 51.3 Seconds (9.4-12.1)
[2020-06-20 17:23] LABS: Estimated Average Glucose 154 mg/dl
[2020-06-20] MEDS: Melatonin 3 MG TABLET PO SCH (20:54)
[2020-06-20] MEDS: Furosemide 40 MG TABLET PO SCH (20:54)
[2020-06-20] MEDS: cefTRIAXone 1,000 MG in Water for inj. (sterile) 10 ML IVP SCH (20:54)
[2020-06-20] MEDS: Sennosides/Docusate Sodium TABLET PO SCH (20:54)
[2020-06-20] MEDS: Azithromycin 500 MG in 0.9 % Sodium Chloride 250 ML IVPB SCH (20:55)
[2020-06-20] MEDS ORDERED: NON-FORMULARY MEDICATION 1 EACH EACH (Melatonin 5 MG) PO SCH (21:00)
[2020-06-21 03:59] LABS: Hematocrit 30.8 % (37.5-50.1); Hemoglobin 9.3 g/dL (12.9-16.9); Mean Corpuscular HGB Conc 30.2 g/dL (31.6-35.5); Mean Corpuscular Hemoglobin 26.7 pg (28.0-33.3); Mean Corpuscular Volume 88.5 fL (83.0-100.0); Mean Platelet Volume 8.5 fL (9.4-12.4); Platelet Count 244 K/mcL (140-400); Red Blood Count 3.48 M/mcL (4.19-5.50); Red Cell Distribution Width 15.7 % (11.5-14.5); White Blood Count 4.7 K/mcL (4.3-11.1)
[2020-06-21 04:03] LABS: INR 3.2; Prothrombin Time 36.9 Seconds (9.4-12.1)
[2020-06-21 04:19] LABS: % Iron Saturation 17 % (20-55); Iron 32 mcg/dL (65-175); Transferrin 132 mg/dL (203-362)
[2020-06-21 04:22] LABS: Calcium 9.1 mg/dL (8.6-10.3); Potassium 4.3 mEq/L (3.5-5.1)
[2020-06-21 04:37] LABS: Ferritin 266 ng/mL (20-250)
[2020-06-21 04:43] LABS: Folate 6.3 ng/mL (3.0-16.0)
[2020-06-21] MEDS: Triamcinolone Acet 0.1% CRM 15 GM TUBE TP SCH (09:00)
[2020-06-21] MEDS ORDERED: Metoprolol XL (24 HR) Succ 50 MG TAB.ER.24H PO SCH (09:00)
[2020-06-21] MEDS: Furosemide 40 MG TABLET PO SCH ×2 (09:35→20:06)
[2020-06-21] MEDS: Cholecalciferol (D-3) 1,000 UNIT (25MCG) TABLET PO SCH (09:35)
[2020-06-21] MEDS: Isosorbide MONOnitrate (24 HR) 60 MG TAB.ER.24H PO SCH (09:35)
[2020-06-21] MEDS: Metoprolol XL (24 HR) Succ 50 MG TAB.ER.24H PO SCH (09:35)
[2020-06-21] MEDS: Sennosides/Docusate Sodium TABLET PO SCH ×2 (09:35→20:06)
[2020-06-21] MEDS: amLODIPine 5 MG TABLET PO SCH (09:36)
[2020-06-21] MEDS: Dexamethasone 4 MG/ML VIAL IVP SCH (09:36)
[2020-06-21] MEDS: cefTRIAXone 1,000 MG in Water for inj. (sterile) 10 ML IVP SCH (10:06)
[2020-06-21] MEDS: Insulin LISPRO 300 UNITS/3 ML VIAL SQ SCH ×4 (11:16→18:28)
[2020-06-21 13:00] LABS: Adenovirus Not Detected (Not Detect); Bordetella Pertussis Not Detected (Not Detect); Chlamydophila pneumoniae Not Detected (Not Detect); Coronavirus 229E Not Detected (Not Detect); Coronavirus HKU1 Not Detected (Not Detect); Coronavirus NL63 Not Detected (Not Detect); Coronavirus OC43 Not Detected (Not Detect); Human Metapneumovirus Not Detected (Not Detect); Human Rhinovirus/Enterovirus Not Detected (Not Detect); Influenza A Subtype 2009 H1 Not Detected (Not Detect); Influenza B Not Detected (Not Detect); Mycoplasma pneumoniae Not Detected (Not Detect); Parainfluenza Virus 1 Not Detected (Not Detect); Parainfluenza Virus 2 Not Detected (Not Detect); Parainfluenza Virus 3 Not Detected (Not Detect); Parainfluenza Virus 4 Not Detected (Not Detect); Respiratory Syncytial Virus Not Detected (Not Detect); SARS-CoV-2 Not Detected (Not Detect)
[2020-06-21] MEDS: Azithromycin 500 MG in 0.9 % Sodium Chloride 250 ML IVPB SCH (17:17)
[2020-06-21] MEDS ORDERED: Iron Sucrose Complex 400 MG in 0.9 % Sodium Chloride 250 ML IVPB ONE (19:02)
[2020-06-21] MEDS: Melatonin 3 MG TABLET PO SCH (20:06)
[2020-06-21] MEDS: D10% in Water 500 ML IVC SCH (20:24)
[2020-06-21] MEDS ORDERED: Insulin DETEMIR 100 UNIT/ML X5UNITS SQ SCH (21:00)
[2020-06-22] MEDS: *HR* HYDROcodone/Acet 5/325 mg TABLET PO PRN (02:22)
[2020-06-22 03:14] LABS: INR 2.2; Prothrombin Time 24.7 Seconds (9.4-12.1)
[2020-06-22 03:16] LABS: Activated Partial Thrombo Time 35.7 Seconds (26.0-36.0)
[2020-06-22 03:29] LABS: Hematocrit 25.7 % (37.5-50.1); Hemoglobin 8.2 g/dL (12.9-16.9); Mean Corpuscular HGB Conc 31.9 g/dL (31.6-35.5); Mean Corpuscular Hemoglobin 28.2 pg (28.0-33.3); Mean Corpuscular Volume 88.3 fL (83.0-100.0); Mean Platelet Volume 8.4 fL (9.4-12.4); Platelet Count 202 K/mcL (140-400); Red Blood Count 2.91 M/mcL (4.19-5.50); Red Cell Distribution Width 15.7 % (11.5-14.5); White Blood Count 6.4 K/mcL (4.3-11.1)
[2020-06-22 03:42] LABS: Calcium 9.2 mg/dL (8.6-10.3); Magnesium 1.6 mg/dL (1.6-2.6); Phosphorous 2.7 mg/dL (2.7-4.5); Potassium 3.7 mEq/L (3.5-5.1)
[2020-06-22] MEDS: Sennosides/Docusate Sodium TABLET PO SCH (07:42)
[2020-06-22] MEDS: Cholecalciferol (D-3) 1,000 UNIT (25MCG) TABLET PO SCH (07:42)
[2020-06-22] MEDS: Isosorbide MONOnitrate (24 HR) 60 MG TAB.ER.24H PO SCH (07:42)
[2020-06-22] MEDS: Metoprolol XL (24 HR) Succ 50 MG TAB.ER.24H PO SCH (07:42)
[2020-06-22] MEDS: Furosemide 40 MG TABLET PO SCH (07:43)
[2020-06-22] MEDS: amLODIPine 5 MG TABLET PO SCH (07:43)
[2020-06-22] MEDS: cefTRIAXone 1,000 MG in Water for inj. (sterile) 10 ML IVP SCH (07:45)
[2020-06-22] MEDS: Insulin LISPRO 300 UNITS/3 ML VIAL SQ SCH ×4 (08:22→12:32)
[2020-06-22] MEDS: Triamcinolone Acet 0.1% CRM 15 GM TUBE TP SCH (08:56)
[2020-06-22 12:05] VITALS: BP 115/71
[2020-06-22] MEDS ORDERED: Warfarin perPT PO PRN (18:00)
[2020-06-24] MEDS ORDERED: Buprenorphine [Butrans 15 Mcg/Hr] TP SCH (11:41)
== END 2020-06-22 15:23 | DRG 150 ==
LOC: EMEROOARM 23:32 → 2NENU 23:32 → SUATTDRO 06-20 03:43 → 2NENU 06-20 06:46 → 3BNU 06-21 16:59 → SUATTDRO 06-21 17:10
PROVIDERS: ADMIT Internal Medicine; ATTEND Internal Medicine